=== PATIENT | female | born 1955 | race Caucasian/White ===

== ENCOUNTER 2019-11-14 08:02 | Emergency (ER) | payer OTHER, SELFPAY ==
--- NOTE | 2019-11-14 08:10 | ED.GENADULT ---
HPI - General Adult General Chief complaint: Skin/Abscess/Foreign Body Stated complaint: Rash on hand Time Seen by Provider: 11/14/19 08:17 Source: patient and RN notes reviewed Mode of arrival: ambulatory Limitations: no limitations History of Present Illness HPI narrative: This patient has had a dry scaly rash on the dorsal proximal aspect of the thumb that began 4 weeks ago and now the area has become red and tender to touch. Is not been any drainage from the area. Is been no red streaking on to other areas of the hand or up the arm. She has not had any fever. She otherwise been feeling well except for some discomfort at the upper anterior aspect of her right arm for the past 2 weeks. She has not seen any skin lesions appear anywhere. She has no chest pain or shortness of breath. She has not had any ear pain, no nasal drainage, no sore throat, no cough. She has had no nausea, no vomiting, no diarrhea. She has no history of eczema, psoriasis, MRSA. She has no family members with any rashes. She is used hydrocortisone on the rash without improvement. No exposure to anyone with respiratory infections that she is aware of. She has not been traveling. Related Data Home Medications Medication Instructions Recorded Confirmed pregabalin 75 mg PO HS 11/14/19 11/14/19 Allergies Allergy/AdvReac Type Severity Reaction Status Date / Time No Known Allergies Allergy Unverified 06/26/17 15:48 Review of Systems Review of Systems: Narrative: CONSTITUTIONAL: Denies fever, chills, or sweats. Noncontributory except as pertains to the past medical history and history of present illness. EYES: Denies visual changes, redness, or discharge. ENT: Denies rhinorrhea, congestion, sore throat, or otalgia. CARDIOVASCULAR: Denies chest pain, palpitations, or edema. RESPIRATORY: Denies cough or dyspnea. GASTROINTESTINAL: Denies abdominal pain, nausea, vomiting, or diarrhea. GENITOURINARY: Denies dysuria or hematuria. SKIN: Denies rash or itching. MUSCULOSKELETAL: Denies back pain, joint pain, or myalgia. NEUROLOGIC: Denies headache, numbness, or weakness. PSYCHIATRIC: Denies anxiety or depression. [facility] Family History Family History (Updated 06/10/18 @ 10:17 by DOCTOR UNKNOWN) Other Diabetes mellitus Family history of chronic obstructive pulmonary disease Family history of coronary artery disease Hypertension Social History Social History Smoking status: Former smoker Smoking end date: 10/04/06 Alcohol intake: current Comments At time of signature, I have reviewed and agree with nursing past medical, surgical, social, and family history.Please see nursing chart for further information. There is no relevant family history pertinent to the presenting complaint. Exam Narrative: Exam Narrative: GENERAL: Well-appearing, well-nourished, and in no acute distress. HEAD: Normocephalic, atraumatic. EYES: PERRLA and EOMI. EARS: TM's clear bilaterally and the canals are clear. NOSE: Nares clear, no rhinorrhea or epistaxis. THROAT:Mucous membranes moist.Oropharynx Normal without erythema or exudates. NECK: Supple. No adenopathy of the neck, supraclavicular, axillary, or inguinal areas. RESPIRATORY: No respiratory distress. Airway patent. Respirations non-labored. Clear to auscultation. There are no wheezes, no rales, no retractions, no use accessory muscle respirations. Patient's not cyanotic and not dyspneic. HEART: Regular rate and rhythm. No murmur heard. Normal peripheral pulses. ABDOMEN: Soft, nontender, nondistended, normal active bowel sounds.No masses. No rebound or guarding, No organomegaly. No pulsatile masses or audible bruits. Patient has no CVA pain. No pain McBurney's point. There is a negative Mccartney sign and negative Rovsing sign. There is no palpation tenderness at McBurney's point. EXTREMITIES: No clubbing/cyanosis/ edema. Normal strength & range of motion. Patient has palpation tenderness at the origin o
[2019-11-14 08:14] VITALS: BP 166/87; PULSE 96; RESP 18; TEMP 36.6; O2SAT 99
== END 2019-11-14 08:50 | disposition home or self-care (01) ==
PROVIDERS: Emergency Provider Family Medicine; PCP Family Medicine
DX: L03.011 Cellulitis of right finger (principal); M75.21 Bicipital tendinitis, right shoulder; Z87.891 Personal history of nicotine dependence
CPT/HCPCS: 99213; G0463

== ENCOUNTER 2020-08-19 01:36 | Outpatient (CLI) | payer OTHER, SELFPAY ==
[2020-08-19 21:22] LABS: SARS-CoV-2 RNA PCR Negative
== END 2020-08-19 01:37 | disposition home or self-care (01) ==
LOC: ANHCOVIDDT 01:36
PROVIDERS: PCP Physician Assistant; Visit Provider Internal Medicine Gastroenterology
DX: Z01.818 Encounter for other preprocedural examination (principal); Z20.828 Contact with and (suspected) exposure to other viral communicable diseases
CPT/HCPCS: 87635; C9803; U0003

== ENCOUNTER 2020-08-22 00:17 | Day surgery (SDC) | payer OTHER, SELFPAY ==
[2020-08-15 14:43] VITALS: BMI 23.1
[2020-08-22 09:00] VITALS: BP 181/87; PULSE 95; RESP 18; TEMP 36.4; O2SAT 96; BMI 23.3
--- NOTE | 2020-08-22 09:01 | P.HP_ITS ---
H&P: HPI History of Present Illness Date/Time: 08/22/20 09:01 Chief complaint: Neoplasm screening Narrative: Reason for visit is colonoscopy. This very pleasant lady's is being seen at the request of the primary physician. The patient was examined. Impression: History of colon polyps. Patient is here for screening colonoscopy. She has a family history of colon polyps. Recommendation: Colonoscopy. History: This very pleasant lady's negative GI review systems. She has a family history of colon polyps. She has a personal history of hyperplastic colon polyps. She is here for colonoscopy. Physical examination: General: very pleasant patient in no acute distress. HEENT: Head was normocephalic sclerae is clear mouth without masses neck was supple. Heart: Rate rhythm regular without S3 or S4. Lungs: CTA. Abdomen: Soft with no guarding or rigidity. Bowel sounds were active. Neurologic: Cranial nerves 2 through 12 intact. No focal defects. No clonus. Musculoskeletal system: Revealed no joint tenderness or swelling no muscle atrophy. Extremities: Reveal no significant edema. Skin: Warm and dry with normal turgor. Mental status: intact. Patient is alert and oriented. Review of Systems Review of Systems: All systems reviewed & are unremarkable except as noted in HPI and below PMFSH Past Medical History Medical History (Updated 08/22/20 @ 09:01 by John Bassett DO) Acute bacterial conjunctivitis Elevated blood pressure reading without diagnosis of hypertension Multilevel degenerative disc disease Scoliosis of cervical spine Shingles Surgical History Surgical History (Updated 08/22/20 @ 09:01 by John Bassett DO) H/O colonoscopy [place] teeth extracted Family History Family History Other Diabetes mellitus Family history of chronic obstructive pulmonary disease Family history of coronary artery disease Hypertension Social History Social History Smoking status: Former smoker Second hand tobacco smoke exposure: No Smoking end date: 10/04/06 Alcohol intake: current Drinks per week: 2 Alcohol use details: 1-2 glasses of wine per week Substance use: never Substance use type: does not use Living arrangements: with family Gender identity (if verbalized by the patient): Female Spiritual care concerns: No Meds Home Medications and Allergies Home Medications Medication Instructions Recorded Confirmed Type lisinopril 10 mg tablet 10 mg PO DAILY #90 tablet 07/11/20 08/22/20 Rx pregabalin 75 mg capsule 75 mg PO BID #180 cap 07/15/20 08/22/20 Rx Allergies Allergy/AdvReac Type Severity Reaction Status Date / Time No Known Allergies Allergy Verified 08/22/20 09:00
[2020-08-22] MEDS: LACTATED RINGERS 1,000 ML 150 ML IV CONT (09:18)
--- NOTE | 2020-08-22 09:25 | P.PNAN_ITS ---
Anes - Initial Pre Proc Eval Procedure: Operation Date: 08/22/20 10:00 Proposed Procedures p Screening Colonoscopy - John Bassett DO Date/Time: 08/22/20 09:25 Surgeon: John Bassett DO Pre Op Diagnosis: Neoplasm screening Patient Data Age: 65 Gender: F Height: 5 ft 4 in Weight: 61.8 kg Last Vital Signs Temp 97.5 F L 08/22/20 09:00 Pulse 95 08/22/20 09:00 Resp 18 08/22/20 09:00 BP 181/87 H 08/22/20 09:00 Pulse Ox 96 08/22/20 09:00 Allergies Allergy/AdvReac Type Severity Reaction Status Date / Time No Known Allergies Allergy Verified 08/22/20 09:00 Home Medications Medication Instructions Recorded Confirmed Type lisinopril 10 mg tablet 10 mg PO DAILY #90 tablet 07/11/20 08/22/20 Rx pregabalin 75 mg capsule 75 mg PO BID #180 cap 07/15/20 08/22/20 Rx Patient hx anesthesia problems: none Family hx anesthesia problems: none PMFSH Past Medical History Medical History (Updated 08/22/20 @ 09:01 by John Bassett DO) Acute bacterial conjunctivitis Elevated blood pressure reading without diagnosis of hypertension Multilevel degenerative disc disease Scoliosis of cervical spine Shingles Surgical History Surgical History (Updated 08/22/20 @ 09:01 by John Bassett DO) H/O colonoscopy [place] teeth extracted Family History Family History Other Diabetes mellitus Family history of chronic obstructive pulmonary disease Family history of coronary artery disease Hypertension Social History Social History Smoking status: Former smoker Second hand tobacco smoke exposure: No Smoking end date: 10/04/06 Alcohol intake: current Drinks per week: 2 Alcohol use details: 1-2 glasses of wine per week Substance use: never Substance use type: does not use Living arrangements: with family Gender identity (if verbalized by the patient): Female Spiritual care concerns: No Anes - Eval Final PreProcedure Day of Procedure 08/22/20 09:25 Patient weight: normal Heart: regular rate and rhythm Lungs: clear to auscultation Airway: Mallampati scale Neurological: alert and oriented Last oral intake: >/= 8 hours ASA classification: II Emergent: no Anesthetic plan: proceed Anesthesia type and monitoring: general GIVS and standard monitoring Informed Consent: The patient's anesthetic plan and its attendant risks and benefits were discussed with the patient/family/POA. Questions were solicited and answers provided to the satisfaction of the patient/family/POA.
[2020-08-22 10:12] VITALS: BP 130/74; PULSE 91; RESP 19; O2SAT 100
[2020-08-22 10:22] VITALS: BP 133/82; PULSE 79; RESP 14; O2SAT 100
[2020-08-22 10:32] VITALS: BP 139/74; PULSE 70; RESP 15; O2SAT 100
[2020-08-22 10:42] VITALS: BP 153/87; PULSE 73; RESP 19; O2SAT 100
== END 2020-08-22 10:58 | disposition home or self-care (01) ==
PROVIDERS: PCP Physician Assistant; Visit Provider Internal Medicine Gastroenterology
PROC: 0DJD8ZZ Inspection of Lower Intestinal Tract, Via Natural or Artificial Opening Endoscopic (ICD-10-PCS; CPT 45378; principal; 2020-08-22 10:00)
DX: Z12.11 Encounter for screening for malignant neoplasm of colon (principal); K57.30 Diverticulosis of large intestine without perforation or abscess without bleeding; K62.1 Rectal polyp; Z87.891 Personal history of nicotine dependence
CPT/HCPCS: 45380; 88305; J2704; J7120

== ENCOUNTER 2021-10-08 07:47 | Outpatient (CLI) | payer MEDICARE, SELFPAY ==
--- NOTE | 2021-10-20 17:53 | WPDSLEEPSTUD ---
Sleep Study Date of Study: 10/08/21 <Deysi James, DO - Last Filed: 10/21/21 13:51> Ordering Provider: Sita Syed MD <Deysi James DO - Last Filed: 10/21/21 13:51> Interpreting Physician: Deysi James DO <Deysi James DO - Last Filed: 10/21/21 13:51> Sleep Study Type: Polysomnogram <Deysi James DO - Last Filed: 10/21/21 13:51> Height: 1.63 m <Deysi James DO - Last Filed: 10/21/21 13:51> Weight: 61.235 kg <Deysi James DO - Last Filed: 10/21/21 13:51> Body Mass Index: 23.1 <Deysi James DO - Last Filed: 10/21/21 13:51> Neck Circumference (inches): 14 <Deysi James DO - Last Filed: 10/21/21 13:51> Joshua: 13 <Deysi James DO - Last Filed: 10/21/21 13:51> Reason for Sleep Study Daytime hypersomnia <Deysi James, DO - Last Filed: 10/21/21 13:51> Sleep History The patient is a 66-year-old female with hypertension, anxiety, multilevel degenerative disc disease, scoliosis of cervical spine and seasonal allergies that had a sleep study ordered by her primary care physician due to daytime hypersomnia. The patient is currently retired. She occasionally awakens from sleep short of breath. She frequently awakens at night with heartburn, belching or cough. She frequently snores loud enough others complain. She constantly has trouble sleeping when she has a cold. She occasionally wakes up gasping for air throughout the night. She occasionally has breathing problems at night observed by others. She rarely sweats excessively at night. She rarely notices heart palpitations or irregular heartbeats during the night. She occasionally falls asleep during the day but never while driving. She denies sleep paralysis and cataplexy. She occasionally experiences vivid dream like scenes upon awakening or falling asleep is. She rarely has nightmares. She occasionally has thoughts racing through her mind. She rarely feels sad or depressed. She occasionally has anxiety. She rarely notices parts of her body jerk. She rarely kicks during the night. She rarely has crawling aching feelings in her legs as well as leg pain during the night. She frequently grinds her teeth during sleep and frequently awakens with morning jaw pain. She is frequently bothered by pain during the day but rarely awakened by pain during the night. She frequently wakes up feeling stiff in the morning. She occasionally wakes up with a sore and achy muscles. She frequently wakes up with pain in the neck, spine or other joints. She goes to bed at 9:00 p.m. on both weekdays and weekends. It takes her 1 hour to fall asleep. She wakes up 2-3 times throughout the night. When she wakens, she will lay in bed quietly or pray. She can take up to 30 minutes to fall asleep. She wakes up between 5 and 6:00 a.m. on both weekdays and weekends. She typically gets between 5 and 7 hours of sleep per night. She will lay in bed for 5 minutes after waking up in the morning. She currently lives with her partner. She denies consuming any caffeinated beverages within 2 hours of bedtime. She does not engage in physical exercise before bedtime. She will watch television before falling asleep. She will take naps during the afternoon or the evening but they are not refreshing. She consumes 4 caffeinated beverages per day. She has 1 alcoholic beverage per day. She quit smoking cigarettes 14 years ago. She denies recreational drug use. <Deysi James DO - Last Filed: 10/21/21 13:51> [facility] Past Medical History Medical History: Medical History Acute bacterial conjunctivitis Anxiety Elevated blood pressure reading without diagnosis of hypertension Multilevel degenerative disc disease Scoliosis of cervical spine Shingles <Deysi James DO - Last Filed: 10/21/21 13:51> Surgi
[2021-10-21 13:40] VITALS: BMI 23.1
== END 2021-10-09 10:49 | disposition home or self-care (01) ==
LOC: ANHCSM 07:48
PROVIDERS: PCP Family Medicine; Visit Provider Family Medicine
DX: G47.30 Sleep apnea, unspecified (principal); G47.419 Narcolepsy without cataplexy; G47.10 Hypersomnia, unspecified; G47.61 Periodic limb movement disorder
CPT/HCPCS: 95810

== ENCOUNTER → 2022-03-20 10:54 | Outpatient (CLI) | payer MEDICARE, SELFPAY ==
--- NOTE | ~2022-03-20 | MM_ITS ---
EXAMINATION: MM screening [facility] BI w lea HISTORY: Screening TECHNIQUE: Craniocaudal and mediolateral oblique 3-D tomosynthesis images were obtained and synthetic 2-D images were generated. CAD analysis was submitted and interpreted. COMPARISON: Comparison to multiple prior studies sequentially, with oldest reviewed study dated 12/15. BREAST PARENCHYMAL COMPOSITION: Breast composed of scattered areas of fibroglandular density FINDINGS: There is no evidence of suspicious mass, calcification, or architectural distortion to sugg est malignancy in either breast. There has been no suspicious interval change. IMPRESSION: 1. No mammographic evidence of malignancy. 2. Recommend routine screening mammography in one year. BI-RADS Category 1: Negative Reviewed, dictated and finalized at location A.
--- NOTE | ~2022-03-20 | DEXA_ITS ---
Bone Density Report Name: GOLDY HOLDEN Age: 66 Sex: Female Ethnicity: White Date of : 1955 Indication: osteopenia; postmenopausal Referring Provider: Sarah Beth Harman Study: Bone densitometry was performed. Exam Date: March 20, 2022 Accession number: [id number] Bone Density: Region BMD T-score Z-score Classification AP Spine (L1-L4) 0.840 -1.9 -0.1 Osteopenia Femoral Neck (Left) 0.649 -1.8 -0.3 Osteopenia Total Hip (Left) 0.747 -1.6 -0.3 Osteopenia Femoral Neck (Right) 0.694 -1.4 0.1 Osteopenia Total Hip (Right) 0.766 -1.4 -0.2 Osteopenia Total Hip Mean 0.757 -1.5 -0.3 Osteopenia World Health Organization criteria for BMD impression classify patients as: Normal (T-score at or above -1.0), Osteopenia (T-score between -1.0 and -2.5), or Osteoporosis (T-score at or below -2.5). 10-year Fracture Risk(1): Major Osteoporotic Fracture 9.9% Hip Fracture 1.3% Reported Risk Factors: [place] (), Neck BMD=0.649, BMI=25.3 (1) FRAX(R) Version 3.08. Fracture probability calculated for an untreated patient. Fracture probability may be lower if the patient has received treatment. Previous Exams: Region Exam Age BMD T-score BMD Change BMD Change Date g/cm2 vs Baseline vs Previous AP Spine(L1-L4) 03/20/2022 66 0.840 -1.9 -0.169* -0.026* 04/22/2018 62 0.866 -1.6 -0.142* -0.142* 11/05/2008 53 1.008 -0.4 Total Hip(Left) 03/20/2022 66 0.747 -1.6 -0.217* -0.041* 04/22/2018 62 0.788 -1.3 -0.176* -0.176* 11/05/2008 53 0.964 0.2 Total Hip(Right) 03/20/2022 66 0.766 -1.4 -0.192* -0.041* 04/22/2018 62 0.807 -1.1 -0.151* -0.151* 11/05/2008 53 0.958 0.1 *Denotes significance at 95% confidence level, LSC for AP Spine = 0.022 g/cm2, LSC for Total Hip = 0.027 g/cm2 Impression: The patient has low bone mass, based on the Total Spine T-score. The patient has an estimated ten-year risk of hip fracture of 1.3% and an estimated ten-year risk of major fracture of 9.9%, based on the WHO FRAX algorithm. The BMD for the AP Spine(L1-L4) decreased, changing by -0.026 since the last DXA exam. The BMD for the Total Hip(Left) decreased, changing by -0.041 since the last DXA exam. The BMD for the Total Hip(Right) decreased, changing by -0.041 since the last DXA exam. Discussion: BONE DENSITY IS LOW AT ONE OR MORE SKELETAL SITES. This patient's lowest T-score is low at one or more skeletal sites. It meets the World Health Organization's (WHO) criteria for ?low
== END ==
PROVIDERS: PCP Family Medicine; Visit Provider Family Medicine
DX: Z12.31 Encounter for screening mammogram for malignant neoplasm of breast (principal); Z78.0 Asymptomatic menopausal state; M85.89 Other specified disorders of bone density and structure, multiple sites
CPT/HCPCS: 77063; 77067; 77080

== ENCOUNTER 2022-06-04 09:58 | Outpatient (CLI) | payer MEDICARE, SELFPAY ==
--- NOTE | ~2022-06-04 | MR_ITS ---
EXAMINATION: MR brain/brain stem wo/w con DATE: 06/04/2022 10:42 INDICATION: Memory loss. TECHNIQUE: Magnetic resonance imaging (MRI) of the brain and brainstem was performed without and with 12 mL MultiHance intravenous contrast. COMPARISON: None. FINDINGS: There is no intracranial hemorrhage, acute infarction, or abnormal intracranial mass lesion . There are scattered areas of nonspecific increased T2-weighted signal intensity in the cerebral whi te matter, which is within normal limits for the patient's age. The ventricles are normal in size. Th ere is mild mucosal thickening in the ethmoid sinuses. The orbits are normal. The mastoid air cells a re normal. IMPRESSION: 1. Normal aging brain. Reviewed, dictated and finalized at location A. IMPRESSION: 1. Normal aging brain.
== END 2022-06-04 09:59 | disposition home or self-care (01) ==
PROVIDERS: PCP Family Medicine; Visit Provider Family Medicine
DX: R41.3 Other amnesia (principal); R47.89 Other speech disturbances
CPT/HCPCS: 70553; A9577

== ENCOUNTER → 2022-09-23 13:59 | Outpatient (CLI) | payer MEDICARE, SELFPAY ==
--- NOTE | ~2022-09-23 | XR_ITS ---
XR sacrum coccyx min 2V DATE: 09/23/2022 14:27 INDICATION: Sciatica TECHNIQUE: AP, angled AP and lateral views COMPARISON: None FINDINGS: There is osteopenia. No fracture or bone destruction of the sacrum or coccyx is evident. Th e sacroiliac joints appear normal. IMPRESSION: Osteopenia Reviewed, dictated and finalized at location B. INE WEDGER IMPRESSION: Osteopenia
--- NOTE | ~2022-09-23 | XR_ITS ---
XR lumbar spine min 4V DATE: 09/23/2022 14:27 INDICATION: Sciatica TECHNIQUE: AP, lateral, bilateral oblique views, coned lateral lumbosacral view COMPARISON: 04/22/2014 2 view chest FINDINGS: There is diffuse osteopenia. Mildly prominent loss of height and anterior wedging of T12 due to compression fracture, likely chron ic, but new since 04/22/2014 chest radiograph. Mild levoscoliosis of the lower thoracic and lumbar spine. No evidence of recent fracture of the lumbar spine. Normal alignment of the lumbar spine without spon dylolysis or spondylolisthesis. The included lower thoracic and lumbar pedicles are intact. Lumbar and lumbosacral interspaces are relatively well preserved. There is mild degenerative spurring of the lumbar spine. The sacroiliac joints are intact. There is a prominent amount of fecal material in the rectum and colon. IMPRESSION: Osteopenia Mild levoscoliosis Likely chronic moderate compression fracture deformity of T12 Mild degenerative change of the lumbar spine Reviewed, dictated and finalized at location B. [employer]
== END ==
PROVIDERS: PCP Family Medicine; Visit Provider Physician Assistant Medical
DX: M54.30 Sciatica, unspecified side (principal); M85.88 Other specified disorders of bone density and structure, other site
CPT/HCPCS: 72110; 72220

== ENCOUNTER → 2023-01-11 09:43 | Outpatient (CLI) | payer MEDICARE, SELFPAY ==
--- NOTE | ~2023-01-11 | MR_ITS ---
MRI of the lumbar spine Clinical History: Pain Technique: Axial T2-weighted images, and sagittal T1-weighted, T2-weighted, and and T2 fat-sat images were acquired. Findings: There is no acute fracture or subluxation of the lumbar spine. Chronic moderate compression fracture of T12 noted. No bone marrow signal abnormality seen otherwise. At L1-L2, there is no disc bulge or herniation. There is minimal facet joint hypertrophy. No spinal c anal stenosis or neural foraminal narrowing. At L2-L3, there is disc bulge, most prominent in the left paracentral to left foraminal region, with mild facet arthropathy. There is left lateral recess stenosis. There is moderate left neural foramina l narrowing. Minimal right neural foraminal narrowing noted. At L3-L4, disc bulge and facet arthropathy result in severe thecal sac compression/spinal canal steno sis. There is moderate bilateral neural foraminal narrowing. At L4-L5, there is central disc protrusion superimposed upon diffuse disc bulge. There is mild facet arthropathy. There is minimal effacement of the ventral thecal sac. There is severe bilateral neural foraminal narrowing. At L5-S1, there is no disc bulge or herniation. No spinal canal stenosis or neural foraminal narrowin g. Paravertebral soft tissues are unremarkable. Impression: Multifactorial severe thecal sac compression/spinal canal stenosis at L3-L4, with moderate bilateral neural foraminal narrowing. Additional moderate degenerative spondylitic changes at L2-L3 and L4-L5, as detailed above. Chronic T12 compression fracture deformity. Reviewed, dictated and finalized at [facility]. Impression: Multifactorial severe thecal sac compression/spinal canal stenosis at L3-L4, wi th moderate bilateral neural foraminal narrowing. Additional moderate degenerative spondylitic changes at L2-L3 and L4-L5, as det vandana above. Chronic T12 compression fracture deformity.
== END ==
PROVIDERS: PCP Family Medicine; Visit Provider Physician Assistant Medical
DX: M54.30 Sciatica, unspecified side (principal); M48.061 Spinal stenosis, lumbar region without neurogenic claudication; M47.816 Spondylosis without myelopathy or radiculopathy, lumbar region; M48.54XA Collapsed vertebra, not elsewhere classified, thoracic region, initial encounter for fracture
CPT/HCPCS: 72148

== ENCOUNTER → 2023-05-17 10:27 | Outpatient (CLI) | payer MEDICARE, SELFPAY ==
--- NOTE | ~2023-05-17 | MM_ITS ---
EXAMINATION: MM screening [facility] BI w lea HISTORY: Screening TECHNIQUE: Craniocaudal and mediolateral oblique 3-D tomosynthesis images were obtained and synthetic 2-D images were generated. CAD analysis was submitted and interpreted. COMPARISON: Comparison to multiple prior studies sequentially, with oldest reviewed study dated 01/17. BREAST PARENCHYMAL COMPOSITION: There are scattered areas of fibroglandular density. FINDINGS: There is no evidence of suspicious mass, calcification, or architectural distortion to sugg est malignancy in either breast. There has been no suspicious interval change. IMPRESSION: 1. No mammographic evidence of malignancy. 2. Recommend routine screening mammography in one year. BI-RADS Category 1: Negative Reviewed, dictated and finalized at location A.
== END ==
PROVIDERS: PCP Physician Assistant Medical; Visit Provider Physician Assistant Medical
DX: Z12.31 Encounter for screening mammogram for malignant neoplasm of breast (principal)
CPT/HCPCS: 77063; 77067

== ENCOUNTER 2024-05-04 08:29 | Outpatient (CLI) | payer MEDICARE, SELFPAY ==
--- NOTE | ~2024-05-04 | CT_ITS ---
CT thoracic spine wo con Ordering provider: Ruth Zhong MD History: . Thoracic back pain . Comparison: None. Technique: CT thoracic spine without contrast. Automated exposure control and iterative reconstructi on technique were employed. The dose-length product was 407.07 mGy-cm. FINDINGS: VERTEBRAE: Loss of volume of T12 anteriorly is noted which raises most likely chronic. Otherwise, No rmal height and alignment. No subluxation or visible acute fracture. Degenerative changes of the spin e. Schmorl's node is seen in the superior endplate of T12 and inferior endplate of T11. Otherwise DISC SPACES: Narrowing of the disks at multiple levels PARASPINOUS SOFT TISSUES: Normal. IMPRESSION: No acute osseous abnormality of the thoracic spine. Reviewed, dictated and finalized at location A.
--- NOTE | ~2024-05-04 | MR_ITS ---
MRI of the lumbar spine Clinical History: Radiculopathy Technique: Axial T2-weighted images, and sagittal T1-weighted, T2-weighted, and T2 fat-sat images wer e acquired. COMPARISON: 01/11/2023 Findings: No acute fracture or subluxation seen. Stable chronic compression deformity of T12. No susp icious bone marrow signal abnormality seen. At L1-L2, there is no disc bulge or herniation. There is mild to moderate facet arthropathy. No centr al canal stenosis or neural foraminal narrowing. At L2-L3, there is moderate degenerative disc narrowing. There is diffuse disc bulge and moderate fac et arthropathy. No delores central canal stenosis. There is moderate to advanced left neural foraminal narrowing, and mild to moderate right neural foraminal narrowing. L3-L4, there is diffuse disc bulge and severe facet arthropathy, resulting in severe spinal canal rosita nosis/thecal sac compression. There is moderate to severe right neural foraminal narrowing, and sever e left neural foraminal narrowing. At L4-L5, there is diffuse disc bulge with small annular fissure, and moderate facet arthropathy. No delores central canal stenosis. There is severe bilateral neural foraminal conference. At L5-S1, there is minimal disc bulge with mild to moderate facet arthropathy. No central canal steno sis. There is no definite neural foraminal narrowing. Paravertebral soft tissues are unremarkable. Impression: Advanced degenerative spondylosis at L2-L3, L3-L4 and L4-L5. Additional degenerative changes, as above. Reviewed, dictated and finalized at [facility]. Impression: Advanced degenerative spondylosis at L2-L3, L3-L4 and L4-L5. Additional degenerative changes, as above.
== END 2024-05-04 08:30 ==
PROVIDERS: PCP Family Medicine; Visit Provider Physical Medicine & Rehabilitation Pain Medicine
DX: M47.896 Other spondylosis, lumbar region (principal); M51.36 Other intervertebral disc degeneration, lumbar region
CPT/HCPCS: 72128; 72148

== ENCOUNTER 2024-06-06 09:37 | Outpatient (CLI) | payer MEDICARE, SELFPAY ==
--- NOTE | ~2024-06-06 | XR_ITS ---
Cervical Spine: AP, lateral, open-mouth views Clinical History: Pain Findings: There is straightening of the normal cervical lordosis. There is severe degenerative disc d isease throughout the cervical spine, sparing the C2-C3 level. There is moderate to advanced facet ar thropathy throughout the cervical spine. Pre-vertebral soft tissues are unremarkable. Impression: Advanced degenerative spondylosis, as above. Reviewed, dictated and finalized at location M. Impression: Advanced degenerative spondylosis, as above.
== END 2024-06-06 09:38 | disposition home or self-care (01) ==
PROVIDERS: PCP Family Medicine; Visit Provider Physical Medicine & Rehabilitation Pain Medicine
DX: M47.892 Other spondylosis, cervical region (principal)
CPT/HCPCS: 72040

== ENCOUNTER 2024-08-09 07:46 | Outpatient (CLI) | payer MEDICARE, SELFPAY ==
--- NOTE | ~2024-08-09 | MR_ITS ---
MRI of the cervical spine Clinical History: Radiculopathy Technique: Axial T2-weighted and gradient images, and sagittal T1-weighted, T2-weighted, and STIR uche ges were acquired. Findings: There is straightening of normal cervical lordosis. No fracture or subluxation. No suspicio us bone marrow signal abnormality seen. At C2-C3, there is no disc bulge or herniation. No spinal canal stenosis, cord compression, or neural foraminal narrowing. At C3-C4, there is advanced degenerative disc narrowing. There is mild disc osteophyte complex. There is mild canal stenosis without delores cord compression. There is bilateral neural foraminal narrowing , right worse than left. At C4-C5, there is severe degenerative disc narrowing. There is disc osteophyte complex with canal st enosis and mild compression of the ventral cord. There is severe left neural foraminal narrowing. Rig ht neural foramen mildly narrowed. At C5-C6, there is advanced degenerative disc narrowing. There is mild disc osteophyte complex. There is mild canal stenosis without delores cord compression. There is severe right neural foraminal narrow ing. Left neural foramen preserved. At C6-C7, there is advanced degenerative disc narrowing. There is minimal disc bulge. There is mild c anal stenosis without delores cord compression. There is mild right neural foraminal narrowing. Left ne ural foramen may be minimally narrowed as well. No abnormal signal seen in the spinal cord. Paravertebral soft tissues are unremarkable. Impression: Moderate to advanced degenerative spondylosis, as detailed above, probably worst at C4-C5. Reviewed, dictated and finalized at [facility]. [employer] BIOCHEMISTRY Impression: Moderate to advanced degenerative spondylosis, as detailed above, probably wors t at C4-C5.
== END 2024-08-09 07:47 | disposition home or self-care (01) ==
LOC: MICIMG 07:47
PROVIDERS: PCP Family Medicine; Visit Provider Physical Medicine & Rehabilitation Pain Medicine
DX: M47.892 Other spondylosis, cervical region (principal)
CPT/HCPCS: 72141

== ENCOUNTER 2024-09-29 11:24 | Outpatient (CLI) | payer MEDICARE, SELFPAY ==
--- NOTE | ~2024-09-29 | MM_ITS ---
EXAMINATION: MM screening [facility] BI [facility] HISTORY: Screening TECHNIQUE: Craniocaudal and mediolateral oblique 3-D tomosynthesis images were obtained and synthetic 2-D images were generated. CAD analysis was submitted and interpreted. COMPARISON: 05/17/2023 and dating back to 07/15/2019 BREAST PARENCHYMAL COMPOSITION: There are scattered areas of fibroglandular density. FINDINGS: Punctate calcifications detected bilaterally, stable and benign in appearance, vascular in origin. Stable parenchymal pattern without suspicious microcalcifications, architectural distortion, discrete masses or significant asymmetry. IMPRESSION: 1. No mammographic evidence of malignancy. 2. Recommend routine screening mammography in one year. BI-RADS Category 2: Benign finding(s). Reviewed, dictated and finalized at location A. LE OILER
== END 2024-09-29 11:25 | disposition home or self-care (01) ==
LOC: MICIMG 11:25
PROVIDERS: PCP Family Medicine; Visit Provider Physician Assistant Medical
DX: Z12.31 Encounter for screening mammogram for malignant neoplasm of breast (principal)
CPT/HCPCS: 77063; 77067

== ENCOUNTER 2024-12-04 11:01 | Outpatient (CLI) | payer MEDICARE, SELFPAY | END 2024-12-04 11:02 | disposition home or self-care (01) | PROVIDERS: PCP Family Medicine; Visit Provider Physical Medicine & Rehabilitation Pain Medicine | DX: M75.31 Calcific tendinitis of right shoulder (principal); M19.011 Primary osteoarthritis, right shoulder; S43.431A Superior glenoid labrum lesion of right shoulder, initial encounter; S46.111A Strain of muscle, fascia and tendon of long head of biceps, right arm, initial encounter; X58.XXXA Exposure to other specified factors, initial encounter | CPT/HCPCS: 73221 ==

== ENCOUNTER 2024-12-19 13:02 | Outpatient (CLI) | payer MEDICARE, SELFPAY ==
--- NOTE | ~2024-12-19 | XR_ITS ---
AP and lateral views of the pelvis Clinical history osteomyelitis FINDINGS: There are minimal degenerative changes of the sacroiliac joints. No erosive or inflammatory arthropathy evident. Bilateral hip joints are intact. Soft tissues are unremarkable. 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 Reviewed, dictated and finalized at location .
== END 2024-12-19 13:03 | disposition home or self-care (01) ==
LOC: MICIMG 13:03
PROVIDERS: PCP Family Medicine; Visit Provider Physical Medicine & Rehabilitation Pain Medicine
DX: M46.1 Sacroiliitis, not elsewhere classified (principal)
CPT/HCPCS: 72190

== ENCOUNTER 2025-04-10 08:47 | Outpatient (CLI) | payer MEDICARE, SELFPAY ==
--- NOTE | ~2025-04-10 | CT_ITS ---
Noncontrast CT scan of the right shoulder Clinical history preoperative planning TECHNIQUE: Axial noncontrast imaging of the right shoulder was performed. Sagittal and coronal reform atted images were generated. Dose reduction technique was used on this scan by utilizing automated ex posure control and iterative reconstruction technique. The dose-length product (DLP) was 170.52 mGy-c m. Findings: No acute fracture or dislocation seen. There is moderate AC joint degenerative change. Ther e is minimal glenohumeral joint degenerative change. No definite joint effusion identified. Visualized musculature is unremarkable. No gross soft tissue reality seen. No soft tissue mass or flu id collection seen. Visualized right lung is clear. IMPRESSION: Moderate AC joint degenerative change. Minimal glenohumeral joint degenerative change. Reviewed, dictated and finalized at location .
--- OUTSIDE RECORDS SUMMARY | 2025-04-10 08:56 | XMS_ITS | Clinical Summary ---
Author Organization [facility] Address [address] [place] [address] Care Team Providers Care Quarantine Officer Name Role Phone Sita Syed MD Primary Care Provider [phone] Allergies Active Allergy Reactions Criticality Noted Date Comments Prednisone Other (See comments) Low 07/03/2024 Hypertension, bloody nose Medications amLODIPine (NORVASC) 5 mg tablet Take 1 tablet (5 mg total) by mouth daily 30 tablet 07/04/2024 Active Social History Tobacco Use Types Packs/Day Years Used Date Smoking Tobacco: Never Assessed Personal Safety Answer Date Recorded Have you ever been in or are you currently in a harmful physical or emotional relationship or is someone making you feel afraid or unsafe? 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 Gender Identity Not on file Sexual Orientation Not on file Obstetrics History Last Filed Vital Signs Vital Sign Reading Time Taken Comments Blood Pressure 165/85 07/03/2024 3:55 PM CDT Pulse 82 07/03/2024 3:03 PM CDT Temperature 36.3 C (97.4 F) 07/03/2024 9:55 AM CDT Respiratory Rate 13 07/03/2024 3:03 PM CDT Oxygen Saturation 98% 07/03/2024 3:03 PM CDT Inhaled Oxygen Concentration - - Weight 61.7 kg (136 lb) 07/03/2024 9:57 AM CDT Height 162.6 cm (5' 4) 07/03/2024 9:57 AM CDT Body Mass Index 23.34 07/03/2024 9:57 AM CDT Plan of Treatment Health Maintenance Due Date Last Done Comments Breast Cancer Screening-Mammogram 1955 Colon Cancer Screening-Colonoscopy 1955 Depression Screening 1955 Fall Risk Assessment 1955 Hepatitis C Screening 1955 Osteoporosis Screening-Bone Density Scan 1955 Hepatitis B Screening 1974 DTaP/Tdap/Td Vaccine (2 - Td or Tdap) 12/13/2017 12/14/2007 Well Visit 65+ 2021 Covid-19 Vaccine (2023-11 5 season) 2024 07/22/2023, 08/05/2022, 04/10/2022, Additional history exists Influenza Vaccine (Season Ended) 2025 07/27/2023, 08/05/2022, 07/29/2020, Additional history exists Zoster Vaccine Completed 11/12/2020, 08/16/2020 Pneumococcal vaccine 65+ Completed 03/08/2022, 1206/2021 Insurance [employer] OPEN ACCESS [employer] MEDICARE [employer] OPEN ACCESS Care Teams Quarantine Officer Relationship Specialty Start Date End Date Sita Syed MD PCP - General 06/19/21
--- OUTSIDE RECORDS SUMMARY | 2025-04-10 08:56 | XMS_ITS | Referral Summary ---
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
--- OUTSIDE RECORDS SUMMARY | 2025-04-10 08:56 | XMS_ITS | Clinical Summary ---
Author Organization [facility] Address [address] [address] Phone Care Team Providers Care Seed Potato Arranger Name Role Phone Sita Syed MD Primary Care Provider [phone] Allergies Active Allergy Reactions Criticality Noted Date Comments Prednisone Other (see Comments) 03/23/2023 Causes increase in BP Medications naproxen sodium (Aleve) 220 MG Tablet Take 220 mg by mouth 2 times daily as needed. Active albuterol 108 (90 Base) MCG/ACT Aerosol Solution take 2 Puffs by inhalation every 4 hours as needed. Active pregabalin (LYRICA) 75 MG Capsule Take 75 mg by mouth 3 times daily. Active busPIRone (BUSPAR) 10 MG Tablet Take 10 mg by mouth 3 times daily as needed. Active Calcium Carb-Cholecalci ferol 600-20 MG-MCG Tablet Take 1 Tablet by mouth daily. Active other by Other route. EYE PROMISE 1 TAB DAILY Active cetirizine (ZyrTEC) 10 MG Tablet Take 10 mg by mouth daily. Active montelukast (SINGULAIR) 10 MG Tablet Take 10 mg by mouth every evening. Active lisinopril (PRINIVIL, ZESTRIL) 20 MG Tablet Take 20 mg by mouth daily. Active Family History Medical History Relation Name Comments Heart Attack Father Hypertension Father Chronic Obstructive Pulmonary Disease Mother Diabetes Mother Hypertension Mother Relation Name Status Comments Father Mother Social History Tobacco Use Types Packs/Day Years Used Date Smoking Tobacco: Former Cigarettes 1 30 1 977 - 2006 Smokeless Tobacco: Never Alcohol Use Standard Drinks/Week Comments Yes 4 (1 standard drink = 0.6 oz pur e alcohol) Sexually Active Control Partners Comments Yes Post-menopausal Male Comments Unknown Sex and Gender Information Value Date Recorded Sex Assigned at Not on file Legal Sex Female 8:47 AM CDT Gender Identity Not on file Sexual Orientation Not on file Last Filed Vital Signs Vital Sign Reading Time Taken Comments Blood Pressure 137/81 03/29/2023 8:57 AM CDT Pulse 85 03/29/2023 8:57 AM CDT Temperature 36.3 C (97.3 F) 03/29/2023 8:57 AM CDT Respiratory Rate 14 03/29/2023 8:57 AM CDT Oxygen Saturation 97% 03/29/2023 8:57 AM CDT Inhaled Oxygen Concentration - - Weight 61.2 kg (135 lb) 03/23/2023 3:00 PM CDT Height 162.6 cm (5' 4) 03/23/2023 3:00 PM CDT Body Mass Index 23.17 03/23/2023 3:00 PM CDT Plan of Treatment Health Maintenance Due Date Last Done Comments DEXA Bone Density 1955 Hepatitis C Virus (HCV) Screening 1955 Mammogram 1955 Cologuard 2006 Immunochemical Fecal Occult Blood 2006 Influenza Immunization (#1) 06/04/202411/2021, 07/29/2020, 07/31/2018, Additional history exists SARS-COV-2 Immunization ( season) 2024 08/05/2022, 04/10/2022, 08/15/2021, Additional history exists Colonoscopy 08/22/2027 08/22/2020 Colorectal Cancer Screening 08/22/2027 Respiratory Syncytial Virus (RSV) Immunization (Adult) (1 - 1-dose 75+ series) 2031 DTaP/Tdap/Td Immunization Discontinued 12/14/2007 TdaP Immunization Completed 12/14/2007 Zoster Immunization Completed 11/12/2020, 0 Pneumococcal Immunization (50+ years) Completed 03/08/2022, 09/11/2021 Pneumococcal Immunization Combined Discontinued 03/08/2022, 09/11/2021 Hepatitis B Immunization Aged Out No longer eligible based on patient's age to complete this topic Meningococcal Immunization (ACWY) Aged Out No longer eligible based on patient's age to complete this topic Rotavirus Immunization Aged Out No lo nger eligible based on patient's age to complete this topic Medical Devices Implanted Type Area Placement Specialist Device Identifier Shelf Expiration Date Model / Serial / Lot Right Intraocular Lens Implanted:Qty: 1 on 03/29/2023 by Gurmeet Sanchez MD at [facility] Right: Eye [employer] 08/10/2027 [id number] / [id number] Procedures Procedure Name Priority Date/Time Associated Diagnosis Comments COLONOSCOPY Routine 08/22/2020 from Last 3 Months or Most Recently Relevant to Health Maintenance Results * COLONOSCOPY (08/22/2020) John Bassett DO PROCEDURE/MINOR SURGICAL ORDERA BLES Final Result from Last 3 Months or Most Recently Relevant to Health Maintenance Insurance MEDICARE C AETNA Care Teams Seed Potato Arranger Relationship Specialty Start Date End Date Sita Syed MD [address] [place] [address] PCP - General Family Medicine 03/29/23
== END 2025-04-10 08:48 | disposition home or self-care (01) ==
PROVIDERS: PCP Family Medicine; Visit Provider Orthopaedic Surgery
DX: Z01.818 Encounter for other preprocedural examination (principal); M75.101 Unspecified rotator cuff tear or rupture of right shoulder, not specified as traumatic; M12.811 Other specific arthropathies, not elsewhere classified, right shoulder
CPT/HCPCS: 73200

== ENCOUNTER 2025-04-30 13:12 | Outpatient (CLI) | payer MEDICARE, SELFPAY ==
--- OUTSIDE RECORDS SUMMARY | 2025-04-30 13:15 | XMS_ITS | Clinical Summary ---
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
--- OUTSIDE RECORDS SUMMARY | 2025-04-30 13:16 | XMS_ITS | Clinical Summary ---
Author Organization [facility] Address [address] [address] Phone Care Team Providers Care Hi Ranger Operator Name Role Phone Sita Syed MD Primary Care Provider [phone] Allergies Active Allergy Reactions Criticality Noted Date [...] Health Maintenance Due Date Last Done Comments Hepatitis C Virus (HCV) Screening 1955 Cologuard 2001 Immunochemical Fecal Occult Blood 2001 SARS-COV-2 Immunization ( season) 2024 08/05/2022, 04/10/2022, 08/15/2021, Additional history exists Influenza Immunization (#1) 2025 110 11/2021, 07/29/2020, 07/31/2018, Additional history exists Colonoscopy 08/22/2027 08/22/2020 Colorectal Cancer Screening 08/22/2027 Respiratory Syncytial Virus (RSV) Immunization (Adult) (1 - 1-dose 75+ series) 2031 DTaP/Tdap/Td Immunization Discontinued 12/14/2007 TdaP Immunization Completed 12/14/2007 Zoster Immunization Completed 11/12/2020, Pneumococcal Immunization (50+ years) Completed 03/08/2022, 09/11/2021 Pneumococcal Immunization Combined Discontinued 03/08/2022, 09/11/2021 Hepatitis B Immunization Aged Out No longer eligible based on patient's age to complete this topic Human Papillomavirus (HPV) Immunization Aged Out No longer eligible based on patient's age to complete this topic Meningococcal Immunization (ACWY) Aged Out No longer eligible based on patient's age to complete this topic Rotavirus Immunization Aged Out No lo nger eligible based on patient's age to complete this topic Medical Devices Implanted Type Area Mechanical Applications Engineer Device Identifier Shelf Expiration Date Model / Serial / Lot Right Intraocular Lens Implanted:Qty: 1 on 03/29/2023 by Gurmeet Sanchez MD at [facility] Right: Eye [employer] 08/10/2027 [id number] / [id number] / [id number] Procedures Procedure Name Priority Date/Time Associated Diagnosis Comments COLONOSCOPY Routine 08/22/2020 from Last 3 Months or Most Recently Relevant to Health Maintenance Results * COLONOSCOPY (08/22/2020) John Bassett DO PROCEDURE/MINOR SURGICAL ORDERA BLES Final Result from Last 3 Months or Most Recently Relevant to Health Maintenance Insurance MEDICARE C AETNA Care Teams Hi Ranger Operator Relationship Specialty Start Date End Date Sita Syed MD [address] [place] [address] PCP - General Family Medicine 03/29/23
--- OUTSIDE RECORDS SUMMARY | 2025-04-30 13:16 | XMS_ITS | Referral Summary ---
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
--- NOTE | 2025-04-30 13:36 | ECG_ITS ---
Test Date: 2025-04-30 13:45:25 Measurements Intervals [place] Rate: 85 P: 71 ND: 143 QRS: 53 QRSD: 85 T: 63 QT: 329 QTc: 393 Interpretive Statements SINUS RHYTHM Electronically Signed On 05-01-2025 17:08:02 CDT by Kaden Romero D.O
[2025-04-30 13:56] LABS: Hematocrit 38.5 % (37.0-47.0); Hemoglobin 12.6 g/dL (12.0-15.0)
[2025-04-30 14:28] LABS: Albumin Level 4.3 g/dL (3.5-5.1); Estimated Glomerular Filt Rate > 60
== END 2025-04-30 13:13 | disposition home or self-care (01) ==
PROVIDERS: PCP Family Medicine; Visit Provider Orthopaedic Surgery
DX: M75.101 Unspecified rotator cuff tear or rupture of right shoulder, not specified as traumatic (principal); M12.811 Other specific arthropathies, not elsewhere classified, right shoulder; I10 Essential (primary) hypertension; Z79.899 Other long term (current) drug therapy
CPT/HCPCS: 80307; 82040; 82565; 85014; 85018; 93005

== ENCOUNTER 2025-05-31 14:33 | Outpatient (CLI) | payer MEDICARE, SELFPAY ==
--- OUTSIDE RECORDS SUMMARY | 2025-05-31 14:36 | XMS_ITS | Clinical Summary ---
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
--- OUTSIDE RECORDS SUMMARY | 2025-05-31 14:36 | XMS_ITS | Clinical Summary ---
Author Organization [facility] Address [address] [address] Phone Care Team Providers Care Granite Worker Name Role Phone Sita Syed MD Primary Care Provider [phone] Allergies Active Allergy Reactions Criticality Noted Date [...] this topic Medical Devices Implanted Type Area Assembler Rubber Footwear Device Identifier Shelf Expiration Date Model / Serial / Lot Right Intraocular Lens Implanted:Qty: 1 on 03/29/2023 by Gurmeet Sanchez MD at [facility] Right: Eye [employer] 08/10/2027 [id number] / [id number] / [id number] Procedures Procedure Name Priority Date/Time Associated Diagnosis Comments COLONOSCOPY Routine 08/22/2020 from Last 3 Months or Most Recently Relevant to Health Maintenance Results * COLONOSCOPY (08/22/2020) John Bassett DO PROCEDURE/MINOR SURGICAL ORDERA BLES Final Result from Last 3 Months or Most Recently Relevant to Health Maintenance Insurance MEDICARE C AETNA Care Teams Granite Worker Relationship Specialty Start Date End Date Sita Syed MD [address] [place] [address] PCP - General Family Medicine 03/29/23
== END 2025-05-31 14:34 | disposition home or self-care (01) ==
PROVIDERS: PCP Family Medicine; Visit Provider Orthopaedic Surgery
DX: Z79.899 Other long term (current) drug therapy (principal)
CPT/HCPCS: 80307

== ENCOUNTER 2025-08-03 09:51 | Outpatient (CLI) | payer MEDICARE, SELFPAY ==
--- OUTSIDE RECORDS SUMMARY | 2025-01-16 06:00 | XMS_ITS ---
Author Organization [facility] Address [address] [place] [address] Care Team Providers Care Electric Meter Technician Name Role Phone Lynette Castro Primary Care Provider Ruth Clemente Unavailable [phone] Allergies Allergen (clinical drug ingredient) Drug/Non Drug Allergy documented on EMR Reaction Allergy Type Onset Date Status prednisone predniSONE Unknown Drug Allergy Activ e REASON FOR VISIT Right Sacroiliac Joint Injection Medications Medication SIG (Take, Route, Frequency, Duration) Notes Start Date End Date Status Albuterol Sulfate 108 (90 Base) MCG/ACT 1 puff as needed Inhalation every 4 hrs Active Naproxen 375 MG 1 tablet with food o r milk as needed Orally every 12 hrs Active Lisinopril 20 MG 1 tablet Orally Once a day for 30 day(s) Active busPIRone HCl 10 MG 1 tablet Orally Twic e a day Active Pregabalin 75 MG 1 capsule Orally Twi ce a day Active Montelukast Sodium 10 MG 1 tablet Orally Once a day for 30 day(s) Active ZyrTEC 10 MG 1 tablet Orally Once a day for 30 day(s) Active Calcium 500 MG 1 tablet with meals Orally Twice a day for 30 day(s) Active Vitamin B Complex - as directed Orally Active CeleBREX 100 MG 1 capsule with food Orally Once a day for 30 days Active Advil 200 MG 1 tablet with food o r milk as needed Orally TID Active Encounters Encounter Location Date Provider Diagnosis [facility] [address] [place] [address] 01/16/2025 Ruth Zhong Sacroiliitis, not elsewhere classified M46.1 Assessments Encounter Date Diagnosis (ICD Code) Assessment Notes Treatment Notes Treatment Clinical Notes Section Notes 01/16/2025 Sacroiliitis, not elsewhere classified (ICD-10 - M46.1) Plan Of Treatment Next Appt Details Provider Name:John Colbert, Edmond 10/07/2024 11:15:00 AM, [address] [place], [address], Progress Notes * Jemma VILLEGASOB:1955 ( 70 yo F)Acc No.[id number]:01/16/2025 Injection Patient: Libby CRUZ Provider: Morgan Zhong MD :1955 A ge:69 Y S ex:Female Date:01/16/2025 Address:[address] [place], [place] [id number] Pcp:Lynette Castro Subjective: * Chief Complaints: * 1 . Right Sacroiliac Joint Injection. * HPI: C omplaints: PROCEDURE NOTE PROCEDURE: 1. Sacroiliac joint injection on the Right 2. SI joint arthrogram 3. Radiographic interpretation of sacroiliac joint. 4. Fluoroscopic imaging for precise needle position localization DIAGNOSIS: 1. Sacroilitis MEDICATION USED: 1. SI joint local anesthetic: 3 ml marcaine 0.5%, 2. Local anesthetic:5 ml lidocaine 1% 3. Intraarticular steroid: 80 mg Depo-Medrol (methylprednisolone) 4. Contrast agent: 3 ml Omnipaque-300, SUBJECTIVE: This patient presents today for a Right sacroiliac joint injection. PROCEDURE DESCRIPTION: Informed consent for the procedure was obtained and the patient signed the procedure consent form. The patient was given sufficient time to ask questions related to the procedure and to discuss expectations and the overall plan of treatment. The patient was brought into the procedure room and placed in the appropriate position for the procedure as noted above. Betadine (or alcohol if the patient carried an iodine allergy history) was used to prepare the skin over the appropriate location for the injection and sterile drapes were applied. Strict aseptic technique was followed during the procedure. The patient was brought into the procedure room and placed in the appropriate position for the procedure above. An initial RADIOLOGIC EXAMINATION, of the SACROILIAC JOINTS; LESS THAN THREE VIEWS was performed with a c-arm fluoroscope. The initial survey found moderate degenerative changes noted through the SI joint. A 22 Ga spinal needle was used for the procedure. This was advanced directly into the joint using oblique and angulated fluoroscopic views to most clearly define the caudal aspect of the posterior SI joint line. Once needle placement was confirmed within the joint by various fluoroscopic views and by the use of contrast agent, the patient received the steroid and local anesthetic as noted above after careful aspiration for blood. The SI joint arthrogram, if performed, is reported below. The patient had no ill effects from the procedure. The patient was taken to and watched in the recovery area for an appropriate period of time and then released to home once discharge criteria were met and discharge planning/subsequent appointments were made. SI JOINT ARTHROGRAM: 1. Contrast was seen to spread evenly within the joint FLUOROSCOPIC IMAGING FINDINGS: An initial survey of the SI joint was performed with the C-arm fluoroscope. 2 views were obtained of the sacrioliac joint. The following were noted: 1. moderate degenerative changes were noted throughout the sacroiliac joint. COMPLICATIONS: NONE RESULTS: Percentage of relief PLAN: 1. Follow post procedure instructions and complete post procedure diary. 2. Continue medications as previously prescribed. 3. Follow up appointment within several weeks to check on patient post injection and to make any necessary medication adjustment and determine subsequent treatment steps. * Medical History: H igh Blood Pressure. * Medications: T aking Pregabalin 75 MG Capsule 1 capsule Orally Twice a day , Taking Lisinopril 20 MG Tablet 1 tablet Orally Once a day , Taking Naproxen 375 MG Tablet 1 tablet with food or milk as needed Orally every 12 hrs , Taking busPIRone HCl 10 MG Tablet 1 tablet Orally Twice a day , Taking Albuterol Sulfate 108 (90 Base) MCG/ACT Aerosol Powder Breath Activated 1 puff as needed Inhalation every 4 hrs , Taking Advil 200 MG Tablet 1 tablet with food or milk as needed Orally TID , Taking ZyrTEC 10 MG Tablet Chewable 1 tablet Orally Once a day , Taking Montelukast Sodium 10 MG Tablet 1 tablet Orally Once a day , Taking Vitamin B Complex - Tablet as directed Orally , Taking Calcium 500 MG Tablet 1 tablet with meals Orally Twice a day , Taking CeleBREX 100 MG Capsule 1 capsule with food Orally Once a day * Allergies: p redniSONE. Objective: * Vitals: Assessment: * Assessment: 1. S acroiliitis, not elsewhere classified - M46.1 (Primary) Plan: * Treatment: * Procedure Codes: 2 7096 INJECT SACROILIAC JOINT, Modifiers: RT , [address]0479 X-RAY EXAM SACROILIAC JOINTS, J1010 Injection, methylprednisolone acetate, 1 mg, Units: 80.00 , Modifiers: JZ * * Electronic signature of Ruth Zhong MD on 08/03/2025 at 10:23 AM CDT Sign off status: Pending * Provider: Morgan Zhong MD Date: 0 01/16/2025 Generated for Jovita rodriguez/Sherif/Surya on: 1 10:23 AM CDT History and Physical Notes * HPI (History of Present Illness) Category Sub-Category Detail Notes Category Not es Complaints PROCEDURE NOTE PROCEDURE: 1. Sacroiliac joint injection on the Right 2. SI joint arthrogram 3. Radiographic interpretation of sacroiliac joint. 4. Fluoroscopic imaging for precise needle position localization DIAGNOSIS: 1. Sacroilitis MEDICATION USED: 1. SI joint local anesthetic: 3 ml marcaine 0.5%, 2. Local anesthetic:5 ml lidocaine 1% 3. Intraarticular steroid: 80 mg Depo-Medrol (methylprednisolone) 4. Contrast agent: 3 ml Omnipaque-300, SUBJECTIVE: This patient presents today for a Right sacroiliac joint injection. PROCEDURE DESCRIPTION: Informed consent for the procedure was obtained and the patient signed the procedure consent form. The patient was given sufficient time to ask questions related to the procedure and to discuss expectations and the overall plan of treatment. The patient was brought into the procedure room and placed in the appropriate position for the procedure as noted above. Betadine (or alcohol if the patient carried an iodine allergy history) was used to prepare the skin over the appropriate location for the injection and sterile drapes were applied. Strict aseptic technique was followed during the procedure. The patient was brought into the procedure room and placed in the appropriate position for the procedure above. An initial RADIOLOGIC EXAMINATION, of the SACROILIAC JOINTS; LESS THAN THREE VIEWS was performed with a c-arm fluoroscope. The initial survey found moderate degenerative changes noted through the SI joint. A 22 Ga spinal needle was used for the procedure. This was advanced directly into the joint using oblique and angulated fluoroscopic views to most clearly define the caudal aspect of the posterior SI joint line. Once needle placement was confirmed within the joint by various fluoroscopic views and by the use of contrast agent, the patient received the steroid and local anesthetic as noted above after careful aspiration for blood. The SI joint arthrogram, if performed, is reported below. The patient had no ill effects from the procedure. The patient was taken to and watched in the recovery area for an appropriate period of time and then released to home once discharge criteria were met and discharge planning/subsequent appointments were made. SI JOINT ARTHROGRAM: 1. Contrast was seen to spread evenly within the joint FLUOROSCOPIC IMAGING FINDINGS: An initial survey of the SI joint was performed with the C-arm fluoroscope. 2 views were obtained of the sacrioliac joint. The following were noted: 1. moderate degenerative changes were noted throughout the sacroiliac joint. COMPLICATIONS: NONE RESULTS: Percentage of relief PLAN: 1. Follow post procedure instructions and complete post procedure diary. 2. Continue medications as previously prescribed. 3. Follow up appointment within several weeks to check on patient post injection and to make any necessary medication adjustment and determine subsequent treatment steps.
--- OUTSIDE RECORDS SUMMARY | 2025-02-09 09:37 | XMS_ITS ---
Author Organization [facility] Address [address] [place] [address] Care Team Providers Care Product Manager Medical Device Name Role Phone Lynette Castro Primary Care Provider Ruth Clemente [phone] Allergies Allergen (clinical drug ingredient) Drug/Non Drug Allergy documented on EMR Reaction Allergy Type Onset Date Status prednisone predniSONE elevated BP Drug Allergy Act paulette REASON FOR VISIT Pre-Procedure Phone Call Medications Medication SIG (Take, Route, Frequency, Duration) Notes Start Date End Date Status Pregabalin 75 MG 1 capsule Orally Twi ce a day Active Lisinopril 20 MG 1 tablet Orally twic e a day Active Mucinex 600 MG 1 tablet as needed Orally every 12 hrs Active Calcium + D3 250-3 MG-MCG as directed Orally Active ZyrTEC Allergy 10 MG 1 capsule Orally On ce a day for 30 day(s) Active amLODIPine Besylate 5 MG 1 tablet Orally Once a day for 30 day(s) Active CeleBREX 100 MG 1 capsule with food Orally Once a day for 30 days Active Ezetimibe 10 MG 1 tablet Orally Once a day for 30 day(s) Active Montelukast Sodium 10 MG 1 tablet Orally Once a day for 30 day(s) Not-Taking busPIRone HCl 10 MG 1 tablet Orally Twic e a day Active Advil 200 MG 1 tablet with food o r milk as needed Orally TID Active Naproxen 375 MG 1 tablet with food o r milk as needed Orally every 12 hrs Active Encounters Encounter Location Date Provider Diagnosis [facility] [address] [place], [place] [id number] 02/09/2025 Ruth Zhong Plan Of Treatment Next Appt Details Provider Name:John Colbert, 1 10/07/2024 11:15:00 AM, [address] [place], [address], Progress Notes * Jemma VILLEGASOB:1955 ( 70 yo F)Acc No.[id number]:02/09/2025 Patient: Libby CRUZ :1955 A ge:69 Y S ex:Female Address:[address] [place] [address], [address] Subjective: * Chief Complaints: * P re-Procedure Phone Call * Medical History: * Surgical History: E ye-Macular Vitrectomy/Gas 2021, 2023 * Hospitalization/Major Diagno stic Procedure: * Medications: T akingEzetimibe 10 MG Tablet 1 tablet Orally Once a day amLODIPine Besylate 5 MG Tablet 1 tablet Orally Once a day Mucinex 600 MG Tablet Extended Release 12 Hour 1 tablet as needed Orally every 12 hrs Calcium + D3 250-3 MG-MCG Tablet as directed Orally ZyrTEC Allergy 10 MG Capsule 1 capsule Orally Once a day Pregabalin 75 MG Capsule 1 capsule Orally Twice a day Lisinopril 20 MG Tablet 1 tablet Orally twice a day Naproxen 375 MG Tablet 1 tablet with food or milk as needed Orally every 12 hrs busPIRone HCl 10 MG Tablet 1 tablet Orally Twice a day Advil 200 MG Tablet 1 tablet with food or milk as needed Orally TID CeleBREX 100 MG Capsule 1 capsule with food Orally Once a day Taking Ezetimibe 10 MG Tablet 1 tablet Orally Once a day Taking amLODIPine Besylate 5 MG Tablet 1 tablet Orally Once a day Taking Mucinex 600 MG Tablet Extended Release 12 Hour 1 tablet as needed Orally every 12 hrs Taking Calcium + D3 250-3 MG-MCG Tablet as directed Orally Taking ZyrTEC Allergy 10 MG Capsule 1 capsule Orally Once a day Taking Pregabalin 75 MG Capsule 1 capsule Orally Twice a day Taking Lisinopril 20 MG Tablet 1 tablet Orally twice a day Taking Naproxen 375 MG Tablet 1 tablet with food or milk as needed Orally every 12 hrs Taking busPIRone HCl 10 MG Tablet 1 tablet Orally Twice a day Taking Advil 200 MG Tablet 1 tablet with food or milk as needed Orally TID Taking CeleBREX 100 MG Capsule 1 capsule with food Orally Once a day Not-Taking/PRNMontelukast Sodium 10 MG Tablet 1 tablet Orally Once a day Not-Taking/PRN Montelukast Sodium 10 MG Tablet 1 tablet Orally Once a day DiscontinuedAlbuterol Sulfate 108 (90 Base) MCG/ACT Aerosol Powder Breath Activated 1 puff as needed Inhalation every 4 hrs ZyrTEC 10 MG Tablet Chewable 1 tablet Orally Once a day Vitamin B Complex - Tablet as directed Orally Calcium 500 MG Tablet 1 tablet with meals Orally Twice a day Discontinued Albuterol Sulfate 108 (90 Base) MCG/ACT Aerosol Powder Breath Activated 1 puff as needed Inhalation every 4 hrs Discontinued ZyrTEC 10 MG Tablet Chewable 1 tablet Orally Once a day Discontinued Vitamin B Complex - Tablet as directed Orally Discontinued Calcium 500 MG Tablet 1 tablet with meals Orally Twice a day * Allergies: p redniSONE: elevated BPno[Allergies Verified] Objective: * Vitals: * Physical Examination: Assessment: Plan: * Treatment: * Procedure Codes: * * Date:
--- OUTSIDE RECORDS SUMMARY | 2025-02-21 04:15 | XMS_ITS ---
Author Organization [facility] Address [address] [place] [address] Care Team Providers Care Hydrogeology Professor Name Role Phone Lynette Castro Primary Care Provider Ruth Clemente Unavailable [phone] REASON FOR VISIT SCS Trial Encounters Encounter Location Date Provider Diagnosis [facility] [place] [address] [place] [address] 02/21/2025 Ruth Zhong Lumbar radiculopathy M54.16 Assessments Encounter Date Diagnosis (ICD Code) Assessment Notes Treatment Notes Treatment Clinical Notes Section Notes 02/21/2025 Lumbar radiculopathy (ICD-10 - M54.16) Plan Of Treatment Next Appt Details Provider Name:John Colbert, Edmond 10/07/2024 11:15:00 AM, [address] [place] [address], [address], Progress Notes * Jemma VILLEGASOB:1955 ( 70 yo F)Acc No.[id number]:02/21/2025 Patient: Jimmy CRUZil Provider: Morgan Zhong MD :1955 A ge:69 Y S ex:Female Date:02/21/2025 Address:[address] [place], [place] [id number] Pcp:Lynette Castro * * Electronic signature of Ruth Zhong MD on 08/03/2025 at 10:24 AM CDT Sign off status: Pending * Provider: Morgan Zhong MD Date: 0 02/21/2025 Generated for Jovita rodriguez/Sherif/Nareshitting on: 1 10:24 AM WILEYT
--- OUTSIDE RECORDS SUMMARY | 2025-06-14 03:30 | XMS_ITS ---
Author Organization [facility] Address [address] [place] [address] Care Team Providers Care Chemistry Manager Name Role Phone Lynette Castro Primary Care Provider Ruth Clemente Unavailable [phone] Teja Aviles Unavailable [phone] REASON FOR VISIT 3 Months Encounters Encounter Location Date Provider Diagnosis [facility] [address] [place] [address] 06/14/2025 Teja Aviles Plan Of Treatment Next Appt Details Provider Name:John Colbert, 1 10/07/2024 11:15:00 AM, [address] [place] [address], [address], Progress Notes * Jemma VILLEGASOB:1955 ( 70 yo F)Acc No.[id number]:06/14/2025 Progress Notes Patient: Libby CRUZ Provider: Ofelia Aviles :1955 A ge:69 Y S ex:Female Date:06/14/2025 Address:[address] [place], [place] [id number] Pcp:Lynette Castro Subjective: * Chief Complaints: * 1 . 3 Months. * Medical History: Objective: * Vitals: Assessment: Plan: * Treatment: * * Electronic signature of Matty Aviles on 08/03/2025 at 10:24 AM CDT Sign off status: Pending * Provider: Ofelia Aviles Date: 0 06/14/2025 Generated for Jovita rodriguez/Sherif/Surya on: 1 10:24 AM CDT
--- OUTSIDE RECORDS SUMMARY | 2025-07-17 06:00 | XMS_ITS ---
Author Organization [facility] [facility] Address [address] [place] [address] Care Team Providers Care Statistics Manager Name Role Phone Lynette Castro Primary Care Provider Ruth Clemente Unavailable [phone] REASON FOR VISIT Right Sacroiliac Joint Injection Medications Medication SIG (Take, Route, Frequency, Duration) Notes Start Date End Date Status Advil 200 MG 1 tablet with food o r milk as needed Orally TID Active Pregabalin 75 MG 1 capsule Orally Twi ce a day Active Naproxen 375 MG 1 tablet with food o r milk as needed Orally every 12 hrs Active Lisinopril 20 MG 1 tablet Orally twic e a day Active busPIRone HCl 10 MG 1 tablet Orally Twic e a day Active amLODIPine Besylate 5 MG 1 tablet Orally Once a day for 30 day(s) Active Ezetimibe 10 MG 1 tablet Orally Once a day for 30 day(s) Active Calcium + D3 250-3 MG-MCG as directed Orally Active Mucinex 600 MG 1 tablet as needed Orally every 12 hrs Active ZyrTEC Allergy 10 MG 1 capsule Orally On ce a day for 30 day(s) Active Montelukast Sodium 10 MG 1 tablet Orally Once a day for 30 day(s) Not-Taking CeleBREX 100 MG 1 capsule with food Orally Once a day for 90 days As needed Active Cephalexin 500 MG 1 capsule Orally Twi ce per day for 7 days 02/21/2025 Active Encounters Encounter Location Date Provider Diagnosis [facility] [address] 07/17/2025 Ruth Zhong Sacroiliitis, not elsewhere classified M46.1 Assessments Encounter Date Diagnosis (ICD Code) Assessment Notes Treatment Notes Treatment Clinical Notes Section Notes 07/17/2025 Sacroiliitis, not elsewhere classified (ICD-10 - M46.1) Plan Of Treatment Next Appt Details Provider Name:John Colbert, 1 10/07/2024 11:15:00 AM, [address] [place], [address], Progress Notes * Jimmy VILLEGASaBrtOB:1955 ( 70 yo F)Acc No.[id number]:07/17/2025 Injection Patient: Libby CRUZ Provider: Morgan Zhong MD :1955 A ge:69 Y S ex:Female Date:07/17/2025 Address:[address] [place], [place] [id number] Pcp:Lynette Castro Subjective: * Chief Complaints: * [...] joint. COMPLICATIONS: NONE RESULTS: Percentage of relief 50% PLAN: 1. Follow post procedure instructions and complete post procedure diary. 2. Continue medications as previously prescribed. 3. Follow up appointment within several weeks to check on patient post injection and to make any necessary medication adjustment and determine subsequent treatment steps. * Medical History: * Medications: T aking Ezetimibe 10 MG Tablet 1 tablet Orally Once a day , Taking amLODIPine Besylate 5 MG Tablet 1 tablet Orally Once a day , Taking Mucinex 600 MG Tablet Extended Release 12 Hour 1 tablet as needed Orally every 12 hrs , Taking Calcium + D3 250-3 MG-MCG Tablet as directed Orally , Taking ZyrTEC Allergy 10 MG Capsule 1 capsule Orally Once a day , Taking Pregabalin 75 MG Capsule 1 capsule Orally Twice a day , Taking Lisinopril 20 MG Tablet 1 tablet Orally twice a day , Taking Naproxen 375 MG Tablet 1 tablet with food or milk as needed Orally every 12 hrs , Taking busPIRone HCl 10 MG Tablet 1 tablet Orally Twice a day , Taking Advil 200 MG Tablet 1 tablet with food or milk as needed Orally TID , Taking Cephalexin 500 MG Capsule 1 capsule Orally Twice per day , Taking CeleBREX 100 MG Capsule 1 capsule with food Orally Once a day As needed, Not-Taking/PRN Montelukast Sodium 10 MG Tablet 1 tablet Orally Once a day Objective: * Vitals: Assessment: * Assessment: 1. S acroiliitis, not elsewhere classified - M46.1 (Primary) Plan: * Treatment: * Procedures: M oderate degenerative changes were noted throughout the sacroiliac joint. * Procedure Codes: 2 7096 INJECT SACROILIAC JOINT, Modifiers: RT , J1010 Injection, methylprednisolone acetate, 1 mg, Units: 80.00 , Modifiers: JZ * * Electronic signature of Ruth Zhong MD on 08/03/2025 at 10:24 AM CDT Sign off status: Pending * Provider: Morgan Zhong MD Date: Generated for Jovita rodriguez/Sherif/Surya on: 10:24 AM CDT History and Physical Notes * [...] joint. COMPLICATIONS: NONE RESULTS: Percentage of relief 50% PLAN: 1. Follow post procedure instructions and complete post procedure diary. 2. Continue medications as previously prescribed. 3. Follow up appointment within several weeks to check on patient post injection and to make any necessary medication adjustment and determine subsequent treatment steps.
--- OUTSIDE RECORDS SUMMARY | 2025-07-24 05:30 | XMS_ITS ---
Author Organization [facility] Address [address] [place] [address] Care Team Providers Care Prepress Manager Name Role Phone Lynette Castro Primary Care Provider Ruth Clemente Unavailable [phone] Allergies Allergen (clinical drug ingredient) Drug/Non Drug Allergy documented on EMR Reaction Allergy Type Onset Date Status prednisone predniSONE elevated BP Drug Allergy Act paulette REASON FOR VISIT Left Sacroiliac Joint Injection Medications Medication SIG (Take, Route, Frequency, Duration) Notes Start Date End Date Status busPIRone HCl 10 MG 1 tablet Orally Twic e a day Active Advil 200 MG 1 tablet with food o r milk as needed Orally TID Active CeleBREX 100 MG 1 capsule with food Orally Once a day for 90 days As needed Active Lisinopril 20 MG 1 tablet Orally twic e a day Active Naproxen 375 MG 1 tablet with food o r milk as needed Orally every 12 hrs Active Pregabalin 75 MG 1 capsule Orally Twi ce a day Active amLODIPine Besylate 5 MG 1 tablet Orally Once a day for 30 day(s) Active Mucinex 600 MG 1 tablet as needed O rally every 12 hrs Active Calcium + D3 250-3 MG-MCG as directed Orally Active ZyrTEC Allergy 10 MG 1 capsule Orally On ce a day for 30 day(s) Active Ezetimibe 10 MG 1 tablet Orally Once a day for 30 day(s) Active Encounters Encounter Location Date Provider Diagnosis [facility] [address] 07/24/2025 Ruth Zhong Sacroiliitis, not elsewhere classified M46.1 Assessments Encounter Date Diagnosis (ICD Code) Assessment Notes Treatment Notes Treatment Clinical Notes Section Notes 07/24/2025 Sacroiliitis, not elsewhere classified (ICD-10 - M46.1) Plan Of Treatment Next Appt Details Provider Name:John Colbert, Edmond 10/07/2024 11:15:00 AM, [address] [place], [address], Progress Notes * Jemma VILLEGASOB:1955 ( 70 yo F)Acc No.[id number]:07/24/2025 Injection Patient: Libby CRUZ Provider: Morgan Zhong MD :1955 A ge:69 Y S ex:Female Date:07/24/2025 Address:[address] [place], [place] [id number] Pcp:Lynette Castro Subjective: * Chief Complaints: * 1 . Left Sacroiliac Joint Injection. * HPI: C omplaints: PROCEDURE: 1. Sacroiliac joint injection on the Left 2. SI joint arthrogram 3. Radiographic interpretation of sacroiliac joint. 4. Fluoroscopic imaging for precise needle position localization The patient was brought into the procedure room and placed in the appropriate position for the procedure above. An initial RADIOLOGIC EXAMINATION, of the SACROILIAC JOINTS; LESS THAN THREE VIEWS was performed with a c-arm fluoroscope. The initial survey found moderate degenerative changes noted through the SI joint. DIAGNOSIS: 1. Sacroilitis MEDICATION USED: 1. SI joint local anesthetic: 3 ml Bupivacaine 0.5% 2. Local anesthetic: 5ml Lidocaine 1% sheet 3. Intraarticular steroid: 80 mg Depo-Medrol (methylprednisolone) 4. Contrast agent: 3 ml Omnipaque-300 per procedural documentation sheet. SUBJECTIVE: This patient that presents today for a Left sacroiliac joint injection. PROCEDURE DESCRIPTION: Informed consent [...] aseptic technique was followed during the procedure. A 22 Ga spinal needle was used [...] had no ill effects from the procedure. Vital signs were monitored and found to be stable throughout. These are reported on the procedure documentation sheet. The patient was taken to and watched in the recovery area for an appropriate period of time and then released to home in the care of a responsible adult once discharge criteria were met and discharge planning/subsequent appointments were made. SI JOINT ARTHROGRAM: 1. Contrast was seen to spread evenly within the joint FLUOROSCOPIC IMAGING FINDINGS: An initial survey of the SI joint was performed with the C-arm fluoroscope. Two views were obtained of the sacrioliac joint. The following were noted: 1. moderate degenerative changes were noted throughout the sacroiliac joint. COMPLICATIONS: NONE RESULTS: Percentage of relief 50% PLAN: 1. Follow post procedure instructions and complete post procedure diary. 2. Continue on present medications. 3. Follow up by telephone in a few days and return for follow up appointment within several weeks to check on patient post injection and to make any necessary medication adjustment and determine subsequent treatment steps. * Medical History: H igh Blood Pressure, High Cholesterol, Macular Hole - bilateral (s/p Vitrectomy/Gas), Anxiety, Osteoarthritis, Osteopenia. * Medications: T aking Ezetimibe 10 MG [...] milk as needed Orally TID , Taking CeleBREX 100 MG Capsule 1 capsule with food Orally Once a day As needed, Medication List reviewed and reconciled with the patient * Allergies: p redniSONE: elevated BP. Objective: * Vitals: Assessment: * Assessment: 1. S acroiliitis, not elsewhere classified - M46.1 (Primary) Plan: * Treatment: * Procedures: M oderate degenerative changes were noted throughout the sacroiliac joint. * Procedure Codes: 2 7096 INJECT SACROILIAC JOINT, Modifiers: LT , 52443 X-RAY EXAM SACROILIAC JOINTS, J1010 Injection, methylprednisolone acetate, 1 mg, Units: 80.00 , Modifiers: JZ * * Electronic signature of Ruth Zhong MD on 08/03/2025 at 10:24 AM CDT Sign off status: Pending * Provider: Morgan Zhong MD Date: Generated for Jovita rodriguez/Sherif/Nareshitting on: 10:24 AM CDT History and Physical Notes * HPI (History of Present Illness) Category Sub-Category Detail Notes Category Not es Complaints PROCEDURE: 1. Sacroiliac joint injection on the Left 2. SI joint arthrogram 3. Radiographic interpretation of sacroiliac joint. 4. Fluoroscopic imaging for precise needle position localization The patient was brought into the procedure room and placed in the appropriate position for the procedure above. An initial RADIOLOGIC EXAMINATION, of the SACROILIAC JOINTS; LESS THAN THREE VIEWS was performed with a c-arm fluoroscope. The initial survey found moderate degenerative changes noted through the SI joint. DIAGNOSIS: 1. Sacroilitis MEDICATION USED: 1. SI joint local anesthetic: 3 ml Bupivacaine 0.5% 2. Local anesthetic: 5ml Lidocaine 1% sheet 3. Intraarticular steroid: 80 mg Depo-Medrol (methylprednisolone) 4. Contrast agent: 3 ml Omnipaque-300 per procedural documentation sheet. SUBJECTIVE: This patient that presents today for a Left sacroiliac joint injection. PROCEDURE DESCRIPTION: Informed consent [...] aseptic technique was followed during the procedure. A 22 Ga spinal needle was used [...] had no ill effects from the procedure. Vital signs were monitored and found to be stable throughout. These are reported on the procedure documentation sheet. The patient was taken to and watched in the recovery area for an appropriate period of time and then released to home in the care of a responsible adult once discharge criteria were met and discharge planning/subsequent appointments were made. SI JOINT ARTHROGRAM: 1. Contrast was seen to spread evenly within the joint FLUOROSCOPIC IMAGING FINDINGS: An initial survey of the SI joint was performed with the C-arm fluoroscope. Two views were obtained of the sacrioliac joint. The following were noted: 1. moderate degenerative changes were noted throughout the sacroiliac joint. COMPLICATIONS: NONE RESULTS: Percentage of relief 50% PLAN: 1. Follow post procedure instructions and complete post procedure diary. 2. Continue on present medications. 3. Follow up by telephone in a few days and return for follow up appointment within several weeks to check on patient post injection and to make any necessary medication adjustment and determine subsequent treatment steps.
--- OUTSIDE RECORDS SUMMARY | 2025-08-03 10:24 | XMS_ITS | Clinical Summary ---
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
--- OUTSIDE RECORDS SUMMARY | 2025-08-03 10:24 | XMS_ITS | Clinical Summary ---
Author Organization [facility] Address [address] [address] Phone Care Team Providers Care Laborer Wrecking And Salvaging Name Role Phone Sita Syed MD Primary Care Provider [phone] Allergies Active Allergy Reactions Criticality Noted Date [...] Cologuard 2001 Immunochemical Fecal Occult Blood 2001 Medicare Initial AWV [id number] 10/04/2023 Influenza Immunization (#1) 2025 110 11/2021, 07/29/2020, 07/31/2018, Additional history exists SARS-COV-2 Immunization ( season) 2025 08/05/2022, 04/10/2022, 08/15/2021, Additional history exists Colonoscopy [...] this topic Medical Devices Implanted Type Area Auto Mechanic Apprentice Device Identifier Shelf Expiration Date Model / Serial / Lot Right Intraocular Lens Implanted:Qty: 1 on 03/29/2023 by Gurmeet Sanchez MD at [facility] Right: Eye [employer] 08/10/2027 [id number] / [id number] / [id number] Procedures Procedure Name Priority Date/Time Associated Diagnosis Comments COLONOSCOPY Routine 08/22/2020 from Last 3 Months or Most Recently Relevant to Health Maintenance Results * COLONOSCOPY (08/22/2020) John Bassett DO PROCEDURE/MINOR SURGICAL ORDERA BLES Final Result from Last 3 Months or Most Recently Relevant to Health Maintenance Insurance MEDICARE C [employer] Care Teams Laborer Wrecking And Salvaging Relationship Specialty Start Date End Date Sita Syed MD [address] [place] [address] PCP - General Family Medicine 03/29/23
--- OUTSIDE RECORDS SUMMARY | 2025-08-03 10:24 | XMS_ITS | Patient Health Record ---
[facility] Address [address] [place] [address] Care Team Providers Care Plumber'S Helper Name Role Phone Lynette Castro Primary Care Provider UnavailRuth Frost Unavailable [phone] Filemon John Unavailable [phone] Teja Aviles Unavailable [phone] Allergies Allergen (clinical drug ingredient) Drug/Non Drug Allergy documented on EMR Reaction Allergy Type Onset Date Status prednisone predniSONE elevated BP Drug Allergy Act paulette Reason For Referral Reason Right shoulder rotat or cuff tear Referral Organization [facility] Referring Provider First Name uRth Referring Provider Last Name Trevin Referring Provider Speciality Pain Medic ine Referred Provider DERRICK HOSKINS Referral Priority Routine Medications Medication SIG (Take, Route, Frequency, Duration) Notes Start Date End Date Status busPIRone HCl 10 MG 1 tablet Orally Twic e a day Active Advil 200 MG 1 tablet with food o r milk as needed Orally TID Active CeleBREX 100 MG 1 capsule with food Orally Once a day for 90 days As needed Active Ezetimibe 10 MG 1 tablet Orally Once a day for 30 day(s) Active Lisinopril 20 MG 1 tablet Orally [...] ce a day for 30 day(s) Active Social History Tobacco Use: Social History Observation Description Date Details (start date - stop date) Former Smoker NA - NA Alcohol Screening Question Answer Notes Alcoholic drink in the past year Yes Frequency Two to four times a month (2 poi nts) Points 2 Interpretation Negative Screening Question Answer Notes Are you a current smoker? former smoker How long has it been since you last smoked? > 10 years Problems Problem Type SNOMED Code ICD Code Onset Dates Problem Status W/U Status Risk Notes Problem Lumbar spondylosis (097256991) Lumbar spondylosis (M47.816) Active confirmed Problem Solitary sacroiliitis (895335273) Sacroiliitis, not elsewhere classified (M46.1) Active confirmed Problem Degeneration of lumbosacral intervertebral disc (09680052) Other intervertebral disc degeneration, lumbosacral region (M51.37) Active confirmed Problem Lumbosacral spondylosis without myelopathy (disorder) (57963147) Spondylosis without myelopathy or radiculopathy, lumbosacral region (M47.817) Active confirmed Problem Rupture of right rotator cuff (1277849093966184 3) Unspecified rotator cuff tear or rupture of right shoulder, not specified as traumatic (M75.101) Active confirmed Problem Cervical spinal stenosis (13929535) Cervical spinal stenosis (M48.02) Active confirmed Problem Rotator cuff tear (781184220) Rotator cuff tear (M75.100) Active confirmed Problem Cervical radiculopathy (76546293) Cervical radiculopathy (M54.12) Active confirmed Encounters Encounter Location Date Provider Diagnosis [facility] [address] 01/16/2025 Ruth Zhong Sacroiliitis, not elsewhere classified M46.1 [facility] [address] [place] [address] 02/21/2025 Ruth Zhong Lumbar radiculopathy M54.16 [facility] [address] 07/17/2025 Ruth Zhong Sacroiliitis, not elsewhere classified M46.1 [facility] [address] 07/24/2025 Ruth Zhong Sacroiliitis, not elsewhere classified M46.1 [facility] [address] [place] [address] 08/17/2024 Lezama Ahmed Cervical radiculopathy M54.12 and Cervical spinal stenosis M48.02 [facility] [address] [place] [address] 09/19/2024 Ruth Joseopher Cervical radiculopathy M54.12 [facility] [address] [place] [address] 11/16/2024 Lezama Ahmed Cervical radiculopathy M54.12 ; Cervical spinal stenosis M48.02 and Acute pain of right shoulder M25.511 [facility] [address] [place] [address] 12/14/2024 Lezama Ahmed Acute pain of right shoulder M25.511 ; Unspecified rotator cuff tear or rupture of right shoulder, not specified as traumatic M75.101 and Sacroiliitis, not elsewhere classified M46.1 [facility] [address] 02/06/2025 Ruth Zhong Sacroiliitis, not elsewhere classified M46.1 [facility] [address] [place] [address] 02/27/2025 Lezama Ahmed Lumbar radiculopathy M54.16 and Spinal stenosis, lumbar region with neurogenic claudication M48.062 [facility] [address] 03/01/2025 Lezama Ahmed Sacroiliitis, not elsewhere classified M46.1 and Spinal stenosis, lumbar region with neurogenic claudication M48.062 [facility] [address] 06/21/2025 John Colbert Sacroiliitis, not elsewhere classified M46.1 and Lumbar Spondylosis without Myelopathy M47.816 [facility] [address] [place] [address] 10/24/2024 Ruth Camarillo. [facility] [address] [place] [address] 11/21/2024 [facility] [address] [place], [place] [id number] 02/09/2025 [facility] [address] [place], [place] [id number] 02/21/2025 Ruth Zhong Assessments Encounter Date Diagnosis (ICD Code) Assessment Notes Treatment Notes Treatment Clinical Notes Section Notes 01/16/2025 Sacroiliitis, not elsewhere classified (ICD-10 - M46.1) 02/21/2025 Lumbar radiculopathy (ICD-10 - M54.16) 07/17/2025 Sacroiliitis, not elsewhere classified (ICD-10 - M46.1) 07/24/2025 Sacroiliitis, not elsewhere classified (ICD-10 - M46.1) 08/17/2024 Cervical radiculopathy (ICD-10 - M54.12) Assessment is unchanged from 06/29/2024 except as denoted below. 08/17/2024 Cervical spinal stenosis (ICD-10 - M48.02) Assessment is unchanged from 06/29/2024 except as denoted below. 09/19/2024 Cervical radiculopathy (ICD-10 - M54.12) 11/16/2024 Cervical radiculopathy (ICD-10 - M54.12) Assessment is unchanged from 08/17/2024 except as denoted below. 11/16/2024 Cervical spinal stenosis (ICD-10 - M48.02) Assessment is unchanged from 08/17/2024 except as denoted below. 12/14/2024 Acute pain of right shoulder (ICD-10 - M25.511) Assessment is unchanged from 11/16/24 except as denoted below. 12/14/2024 Unspecified rotator cuff tear or rupture of right shoulder, not specified as traumatic (ICD-10 - M75.101) Assessment is unchanged from 11/16/24 except as denoted below. 02/06/2025 Sacroiliitis, not elsewhere classified (ICD-10 - M46.1) 02/27/2025 Lumbar radiculopathy (ICD-10 - M54.16) Assessment is unchanged from 12/14/2024 except as denoted below. 02/27/2025 Spinal stenosis, lumbar region with neurogenic claudication (ICD-10 - M48.062) Assessment is unchanged from 12/14/2024 except as denoted below. 03/01/2025 Sacroiliitis, not elsewhere classified (ICD-10 - M46.1) Assessment is unchanged from 02/27/2025 except as denoted below. 03/01/2025 Spinal stenosis, lumbar region with neurogenic claudication (ICD-10 - M48.062) Assessment is unchanged from 02/27/2025 except as denoted below. 06/21/2025 Sacroiliitis, not elsewhere classified (ICD-10 - M46.1) Assessment is unchanged from 03/01/25 except as denoted below. 06/21/2025 Lumbar Spondylosis without Myelopathy (ICD-10 - M47.816) Assessment is unchanged from 03/01/25 except as denoted below. 11/16/2024 Acute pain of right shoulder (ICD-10 - M25.511) Assessment is unchanged from 08/17/2024 except as denoted below. 12/14/2024 Sacroiliitis, not elsewhere classified (ICD-10 - M46.1) Assessment is unchanged from 11/16/24 except as denoted below. 08/17/2024 Other Notes: Significant time was spent due to complex decision-making as a result of the patient's complicated pain issues. The plan is as follows: Patient will continue exercise therapy regimen. Reviewed the patient's cervical spine MRI report with them. Answered all patient questions to their satisfaction. We will schedule a C6-7 Epidural Steroid Injection to target cervical radiculopathy that radiates to right upper extremity. We advised the patient that all blood thinners must be discontinued 1 week prior to the cervical HOMAR including NSAIDs and fish oil. The patient expressed understanding. We will prescribe Celebrex for pain control to be taken one week prior to the upcoming cervical HOMAR. Side effects discussed. Patient advised to contact the clinic if they develop any new or worsening pain symptoms. The total encounter time for today's visit was 30 minutes which was spent on preparation for the visit, e.g. chart review, and in the activities documented in this note. Assessment is unchanged from 06/29/2024 except as denoted below. 11/16/2024 Other Notes: Significant time was spent due to complex decision-making as a result of the patient's complicated pain issues. The plan is as follows: Patient will continue exercise therapy regimen. We will order an MRI of the right shoulder to evaluate for possible rotator cuff tears as a cause of the patient's pain symptoms in the right shoulder and arm. We will review imaging at a follow-up visit and plan for next treatment steps. Patient will contact her previous orthopedic doctor regarding possible consultation for surgical options. We discussed a Spinal Cord Stimulator as an option to manage the patient's chronic pain as they have failed conservative care including physical therapy, medication management, and epidural steroid injections. We discussed the risks and benefits of the procedure and answered any additional questions that the patient had. Patient has already completed a Psychiatric evaluation (Dr. Carrasquillo) to evaluate the patient's awareness of potential permanent implantation of the spinal cord stimulator. We have already completed a CT of the thoracic spine to assess the anatomy and plan for SCS lead placement.This is the last resort option as the patient has failed minimally invasive procedures including medication management, epidural steroid injections, and physical therapy. No medication changes at today's visit. Patient to continue any medications as prescribed. Follow-up in 1-2 weeks for MRI shoulder review and reassessment. Patient advised to contact the clinic if they develop any new or worsening pain symptoms. The total encounter time for today's visit was 30 minutes which was spent on preparation for the visit, e.g. chart review, and in the activities documented in this note. Assessment is unchanged from 08/17/2024 except as denoted below. 12/14/2024 Other Notes: Significant time was spent due to complex decision-making as a result of the patient's complicated pain issues. The plan is as follows: Patient will continue exercise therapy regimen. Reviewed the patient's right shoulder MRI report with them. Multiple rotator cuff and glenoid tears are present. Answered all patient questions to their satisfaction. We will refer the patient to Dr. Derrick Hoskins (ortho) in [place], [place], for further evaluation of the right shoulder. Patient states that she has been a patient of his in the past for knee issues. We will schedule a Right and then Left sacroiliac injection to target sacroiliitis that is causing posterior hip pain. We will order an x-ray of the pelvis to rule out tumor, fracture, or dislocation. Cervical SCS trial is pending scheduling. No medication changes at today's visit. Patient to continue any medications as prescribed. Patient advised to contact the clinic if they develop any new or worsening pain symptoms. The total encounter time for today's visit was 30 minutes which was spent on preparation for the visit, e.g. chart review, and in the activities documented in this note. Please refer back to the HPI and physical exam sections of this note for further details regarding this encounter. Assessment is unchanged from 11/16/24 except as denoted below. 02/27/2025 Other Notes: Significant time was spent due to complex decision-making as a result of the patient's complicated pain issues. The plan is as follows: Patient will continue exercise therapy regimen. The sutures, leads and EPG were removed without difficulty. Bandages were applied to the puncture sites and there was no bleeding after lead removal. The patient tolerated the procedure well without complications. Ammon Lucas from [employer] was present during the lead removal and collected all associated materials post-lead removal. Patient was advised that they may shower. Advised not to become fully submerged for two weeks, including bathtub, hot tub, swimming pool, lakes, or oceans. Advised pt to finish their SCS trial antibiotic as prescribed. Patient acknowledged understanding verbally. Dr. Zhong was consulted and agrees with the current assessment. The patient would not like to proceed with permanent placement of the SCS due to insufficient pain relief at this time. Discussed potential plan to extend trial by two more days to further evaluate level of pain relief which patient declined. Also discussed potential plan to retrial the lumbar SCS since there was some lead migration. Will further discuss these options at scheduled appointment on 03/01/2025. The total encounter time for today's visit was 30 minutes which was spent on preparation for the visit, e.g. chart review, and in the activities documented in this note. Please refer back to the HPI and physical exam sections of this note for further details regarding this encounter. Assessment is unchanged from 12/14/2024 except as denoted below. 03/01/2025 Other Notes: Significant time was spent due to complex decision-making as a result of the patient's complicated pain issues. The plan is as follows: Patient will continue exercise therapy regimen. Will refill Celebrex for patient's acute pain and to reduce inflammation. Discussed medication risks/potential side effects with the patient. Advised the patient to not take any other NSAIDs while taking this medication. The patient expresses understanding. The patient denies history of kidney or liver disease. No medication changes at today's visit. Patient to continue any medications as prescribed. Follow-up in 3 months for reassessment of SI pain. Patient advised to contact the clinic if they develop any new or worsening pain symptoms. The total encounter time for today's visit was 25 minutes which was spent on preparation for the visit, e.g. chart review, and in the activities documented in this note. Please refer back to the HPI and physical exam sections of this note for further details regarding this encounter. Assessment is unchanged from 02/27/2025 except as denoted below. 06/21/2025 Other Notes: Significant time was spent due to complex decision-making as a result of the patient's complicated pain issues. The plan is as follows: Patient will continue exercise therapy regimen. We will schedule the patient for a right then left SI joint injection to target their posterior hip pain stemming from sacroiliitis. Reviewed most recent pelvic xray which shows no acute bony pathology. Discussed procedure details, risks, benefits, alternatives and expected outcomes with the patient. The patient expresses understanding. All patient questions were answered. We will not add or change any medications at this time as the patient is currently tolerating all medications with no significant side effects. Advised pt to contact clinic if they develop any new/worsening symptoms or pain The total encounter time for today's visit was 30 minutes which was spent on preparation for the visit, e.g. chart review, and in the activities documented in this note. Please refer back to the HPI and physical exam sections of this note for further details regarding this encounter. Assessment is unchanged from 03/01/25 except as denoted below. Plan Of Treatment Pending Test Test Name Order Date MRI Cervical Spine without Contrast 06/05 MRI Cervical Spine without Contrast 04/03 MRI Lumbar Spine without contrast 2023 CT Scan Thoracic Spine without Contrast 04/20/2024 Xray Cervical Spine AP/LAT 2/3 Views Xray Pelvis Complete 3 Views 12/14/2024 MRI Shoulder, Right Without Contrast Next Appt Details Provider Name:John Colbert, 1 10/07/2024 11:15:00 AM, [address] [place], [address], Insurance Providers Payer Name Payer Address Payer Phone Subscriber Number Group Number Insured Name Patient Relationship to Insured Coverage Start Date Coverage End Date [employer] Medicare [address] [place] [phone] [id number] Libby Villegas Self - patient is the insured Medical (General) History Medical History History ICD Code High Blood Pressure High Cholesterol 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
[2025-08-03 11:17] LABS: Hematocrit 41.6 % (37.0-47.0); Hemoglobin 13.8 g/dL (12.0-15.0); Immature Granulocyte Percent A 0.9 % (0-0.5); Lymphocytes Absolute Auto 1.76 K/mm3 (0.9-3.2); Mean Corpuscular HGB Conc 33.2 g/dl (32-36); Mean Corpuscular Hemoglobin 29.2 pg (26-34); Mean Corpuscular Volume 87.9 fl (80-100); Nucleated Red Blood Cells Absolute Auto 0.000 K/mm3 (0.0-0.012); Nucleated Red Blood Cells Perc 0.0 % (0.0-0.2); Platelet Count Result 287 k/mm3 (150-375); Red Blood Count 4.73 M/mm3 (4.2-5.4); White Blood Count 8.0 K/mm3 (4.5-10.0)
[2025-08-03 12:24] LABS: MRSA (PCR) NOT DETECTED (NOT DETECTE)
== END 2025-08-03 09:52 | disposition home or self-care (01) ==
LOC: ANHSURGERY 09:55
PROVIDERS: PCP Student in an Organized Health Care Education/Training Program; Visit Provider Orthopaedic Surgery
DX: Z01.812 Encounter for preprocedural laboratory examination (principal); M75.101 Unspecified rotator cuff tear or rupture of right shoulder, not specified as traumatic
CPT/HCPCS: 36415; 85025; 87641

== ENCOUNTER 2025-08-22 15:57 | Inpatient (IN) | payer MEDICARE, SELFPAY ==
--- NOTE | 2025-08-03 09:54 | PC.NURSE ---
[facility] has started construction of its new state of the art ER which will open Spring 2026. With this, we anticipate parking may be a challenge for some our surgical patients and families. Parking spaces are limited but are available for all Surgical, obstetrics, and ER patients sharing this lot. If you arrive and find you are having a hard time finding a parking space, please note that we understand the challenges, please drive around the hospital and park near Hospital Entrance 1. When you enter this entrance, you can ask a volunteer to direct or take you back to the surgical waiting area to check in. We appreciate everyone?s understanding of these expected challenges while we build for your future. Report to the Outpatient Waiting Room, entrance under the green pavilion located off [address], at time __6AM on date _08/21/25 . Planned Procedure Time: __7:30 AM .? Time changes happen often and if your time is changed the preop area will call you the afternoon before. - You and your visitor will be asked to self-screen and do not enter if you have any COVID symptoms. Please call surgeon if you need to reschedule. - A mask is optional within the hospital at this time. Patients may have clear liquids (water, carbonated beverages, clear teas, apple juice) until 3 hours prior to surgery( 4:30 AM) with a maximum of 20 ounces. - No food from midnight until time of surgery and no smoking, or chewing tobacco (or any form of nicotine). No chewing gum, candy or mints. - Take only the following medications with a SIP of water on the morning of surgery: _,BUSPIRONE,PREGABALIN, EYE DROP DO NOT STOP ANY OF YOUR OTHER PRESCRIPTION MEDICATIONS PRIOR TO SURGERY EXCEPT THE FOLLOWING MAY CONTINUE CELEBREX PER DR SILVA.DO NOT TAKE MORNING OF SURGERY Hold all vitamins and supplements for 3 days per anesthesiologist.LAST DOSE08/17/25 Medications to discontinue per physician NAPROXEN_HOLD 7 DAYS PRE OP PER DR SILVA Date to take last dose__08/13/25 Please no make-up, nail hungarian, hairspray, perfume, deodorant, or body powder the day of surgery.? No jewelry (including any body piercings) or valuables the day of surgery, leave them at home.? Please take a shower or bath the night before, or the morning of, surgery with an antibacterial soap.? Wear comfortable, loose fitting clothing.? Children are encouraged to wear pajamas. - Jewelry must be removed prior to entering the operating room.? Rings and piercings that are not removed may be cut off. - The hospital will not accept responsibility for valuables.? - Please leave all valuables, including medications, at home the day of surgery. If you are going home after surgery, a licensed van driver helper must drive you home.? - NO public transportation without another adult if you receive anesthesia. - We recommend that an adult stay with you for 24 hours following discharge. - We also recommend that you do not drive, make important decision, drink alcoholic beverages, or take any drugs that were not prescribed by your health care provider for at least 24 hours after your discharge time. For Pediatric surgeries, we recommend two adults accompany the child home. Follow any additional instructions given to you from your surgeon. VERBAL AND WRITTEN instructions given to __PATIENT and asked if any additional questions and then verbalized understanding. Patient advised to call surgeon office or pre surgery nurse liaison [phone] if any additional questions.
[2025-08-03 09:59] VITALS: BMI 26.6
[2025-08-03 10:49] VITALS: BP 127/80; PULSE 80; RESP 18; TEMP 36.6; O2SAT 99
[2025-08-21] VITALS (16 sets, daily range): BP systolic 109–150; BP diastolic 51–81; PULSE 76–100; RESP 10–18; TEMP 35.7–36.6; O2SAT 98–100; BMI 26.9
[2025-08-21] MEDS: ACETAMINOPHEN 500 MG TABLET 1000 MG PO (06:00)
[2025-08-21] MEDS: LACTATED RINGERS 1,000 ML 30 ML IV CONT ×2 (06:50→10:00)
[2025-08-21] MEDS: TRANEXAMIC ACID 1,000MG/ISO100 1,000 MG/100 ML BAG 200 MG IVPB (06:50)
--- NOTE | 2025-08-21 07:19 | WPDHPUPDATE1 ---
History and Physical Update Update Date/Time: 08/21/25 07:19 History and Physical has been reviewed, including an updated exam of the patient. There are NO changes in the patient's condition. Risks, benefits, and alternatives have been discussed and questions answered. Patient agrees to proceed with procedure.
--- NOTE | 2025-08-21 07:26 | P.PNAN_ITS ---
Anes - Initial Pre Proc Eval Procedure: Operation Date: 08/21/25 07:30 Proposed Procedures p Right Reverse Total Shoulder Arthroplasty - Mitch Mandel MD Date/Time: 08/21/25 07:26 Surgeon: Mitch Mandel MD Pre Op Diagnosis: Rt rot cuff arthrotomy Patient Data Age: 70 Gender: F Height: 1.6 m Weight: 68.8 kg Last Vital Signs Temp 97.2 F L 08/21/25 07:11 Pulse 90 08/21/25 07:11 Resp 18 08/03/25 10:49 BP 130/81 08/21/25 07:11 Pulse Ox 100 08/21/25 07:11 O2 Del Method Room Air 08/21/25 07:11 Allergies Allergy/AdvReac Type Severity Reaction Status Date / Time prednisolone Allergy Severe raises Verified 08/03/25 11:51 blood pressure Home Medications ?Medication ?Instructions ?Recorded ?Confirmed ?Type cetirizine 10 mg tablet (Zyrtec) 10 mg PO DAILY #30 ta bs 09/11/21 08/03/25 Rx naproxen 375 mg tablet,delayed 375 mg PO PRN PRN pain 09/29/22 08/03/25 History release (EC-Naproxen) calcium 600 mg (as 1 cap PO DAILY 03/02/2308/04 History carbonate)-vitamin D3 12.5 mcg (500 unit) capsule (Calcium with Vit D3) vit A 7,160 unit-vit C 113 mg-vit See Rx Instructions .Route .COMPLEX 03/02/23 08/03/25 History E 100 quqh-xrfq-ialmqp tablet ezetimibe 10 mg tablet (Zetia) 10 mg PO DAILY #90 tabs 05/01/25 08/03/25 Rx montelukast 10 mg tablet 10 mg PO QHS 05/01/25 History pregabalin 75 mg capsule 75 mg PO BID #180 caps 05/0108/21/25 Rx lisinopril 20 mg tablet 20 mg PO BID #180 tabs 05/2808/03/25 Rx acetaminophen 650 mg 650 mg PO PRN PRN pain 08/0308/03/25 History tablet,extended release (8 Hour Pain Reliever) amlodipine 5 mg tablet 5 mg PO HS 08/03/25 08/03/25 History calcium polycarbophil 625 mg 625 mg PO DAILY 08/03/25 08/21/25 History tablet ([employer]) celecoxib 100 mg capsule 100 mg PO DAILY 08/03/25 History cyclosporine 0.05 % eye drops in a 1 drp EACH EYE Q12H 08/03/25 08/03/25 History dropperette dextromethorphan-guaifenesin 30 1 tablet PO Q12H 08/0308/03/25 History mg-600 mg tablet extended [id number] hr (Mucinex DM) diphenhydramine 25 1 tablet PO HS PRN sleep 08/03/25 History mg-acetaminophen 500 mg tablet (Night Time Pain Medicine) simethicone 180 mg capsule (Gas 180 mg PO DAILY PRN ab dominal 08/03/25 08/03/25 History Relief (simethicone)) distention vit A 7,160 unit-vit C 113 mg-vit tablet PO DAILY 07/0608/03/25 History E 100 ppov-uool-hdhqyg tablet buspirone 10 mg tablet See Rx Instructions .Route 1 10/10/24 08/21/25 Rx .COMPLEX #270 tabs aspirin 81 mg tablet,delayed 81 mg PO BID 14 days #28 tabs 08/21/25 Rx release oxycodone-acetaminophen 5 mg-325 1 - 2 tablet PO Q4-6H PRN pain 7 08/21/25 Rx mg tablet days #30 tabs Laboratory Tests 08/21/25 06:35 Blood Type Pending Antibody Screen Pending Patient hx anesthesia problems: post op nausea/vomiting Family hx anesthesia problems: none Results Review: All pre-operative results and documents have been reviewed as part of the pre- operative evaluation. [facility] Past Medical History Medical History Pain in lower extremity due to sciatica Hyponatremia Anxiety Shingles Acute bacterial conjunctivitis Scoliosis of cervical spine Cervical spine pain Multilevel degenerative disc disease Surgical History Surgical History H/O eye surgery History of vitrectomy H/O colonoscopy [place] teeth extracted Family History Family History Father Hypertension Heart disease Mother Asthma Hypertension Heart disease Sibling Hypertension Heart disease Other Asthma Depression Other Diabetes mellitus Family history of chronic obstructive pulmonary disease Family history of coronary artery disease Social History Social History Smoking packs per day: 1 Smoking cigarettes per day: 20.0 Years smoked: 35 Smoking pack-years: 35.00 Smoking status: Former smoker Tobacco type: cigarettes Second hand tobacco smoke exposure: No Smoking end date: 09/03/07 Alcohol intake: current Drinks per week: 2 Alcohol use details: 1-2 glasses of wine per week Substance use: never Substance use type: does not use Do You Feel Safe in your Home?: No Lack of Transportation: No Lack of Food: Never True Current Housing: Decline to Answer Concerned About Future Housing: Decline to Answer Difficulty Paying Gas/Electric Bills: Decline to Answer Difficulty Paying for Meds: Decline to Answer Currently Unemployed: Decline to Answer Education: Bachelor's Degree Difficulty w/ Childcare or Family Care: Decline to Answer Living arrangements: with family Occupation/Education: retired Gender identity (if verbalized by the patient): Female Spiritual care concerns: No Anes - Eval Final PreProcedure Day of Procedure 08/21/25 07:26 Patient weight: normal Heart: regular rate and rhythm Lungs: clear to auscultation Airway: Mallampati scale class II Neurological: alert and oriented Last oral intake: >/= 8 hours ASA classification: III Emergent: no Anesthetic plan: proceed Anesthesia type and monitoring: general ETT and standard monitoring Results Review: All pre-operative results and documents have been reviewed as part of the pre- operative evaluation. Informed Consent: The patient's anesthetic plan and its attendant risks and benefits were discus sed with the patient/family/POA. Questions were solicited and answers provided to the satisfaction of the patient/family/POA.
[2025-08-21] MEDS: SCOPOLAMINE 1 MG PATCH 1 PATCH TRANSDERM (07:28)
[2025-08-21] MEDS: ceFAZolin 2 GM in SODIUM CHLORIDE 0.9% IV 50 ML 100 ML IVPB ×2 (07:34→15:59)
--- NOTE | 2025-08-21 08:03 | P.OP_ITS ---
Procedure Note - Detailed Date of Procedure 08/21/25 Pre-op Diagnosis Right shoulder rotator cuff arthropathy. Post-op Diagnosis Same Procedure Performed Reverse total shoulder arthroplasty, right Surgeon Mitch Mandel MD Anesthesia General Indications Massive cuff tear with mild degenerative changes. Description of Procedure Preoperative antibiotics were given. The patient was transferred to the operating room and a general anesthetic was administered. The beach chair position was used at 45 degrees. All bony prominences were padded. The head was carefully stabilized on the [facility] head of visual merchandising. A sterile prep and drape was performed in the usual manner with ChloraPrep. A longitudinal incision was created at the anterior shoulder just lateral to the deltopectoral interval. Careful dissection was performed to expose the interval and protect the cephalic vein. The vein was retracted medially. Anterior circumflex vessel branches were suture ligated. The biceps was previously ruptured. A subscapularis tenotomy was performed. The inferior capsule was released, exposing the humeral head. Osteophytes were removed. Care was taken to stay on bone to protect the axillary nerve. The neck anteversion and inclination were carefully assessed. Version was between 20? and 30?. The anatomic head cut was taken with the oscillating saw. The cut protector was placed, and attention was turned to the glenoid. Retractors were placed. Releases were carried out for exposure. The subscapularis was mobilized, the inferior capsule and long head of triceps released, and the superior and middle glenohumeral ligaments released as well. Labral tissue was resected as needed. Version and inclination were corrected according to preoperative templating. The sizing template was used to assess the baseplate position low on the glenoid, with an approximate 5 degrees corrections of retroversion and 5 degrees of inclination. A guide pin was placed. Minimal reaming was used to accomplish a flat surface without violating the subchondral bone. The boss was drilled, and the real component was impacted into position. The central compression screw was placed. Supplemental locking screws were placed superiorly, anteriorly and inferiorly. The glenosphere was impacted into the taper. Attention was turned to the humerus. The guide pin was placed, central drilling performed, and the broach trial inserted. The proximal humerus was reamed for the inset component. The humeral components were trialed. The real humeral stem, tray, and insert were impacted into position. The shoulder was copiously irrigated periodically with pulsatile lavage. The shoulder was reduced and stability confirmed. 1 gram of Vancomycin powder was placed in the joint. The remaining tissue was closed with 2-0 Vicryl, 3-0 Stratafix and 4-0 Stratafix, and steri-strips. A sterile silver occlusive dressing and shoulder immobilizer were placed. The patient was transferred to the recovery room. Physician assistant coach, Elma Harman PA-C, required for surgery; including patient positioning, draping, arthroscopic camera operation, maintaining instrument position, wound closure, and dressing and sling placement. Implants Shoulder Innovations reverse TSA size 10, I90 stem. +0 polyethylene insert. 5 augmented baseplate. 33 + 3 mm glenosphere. Estimated Blood Loss 200 Drains No Pathology None sent Complications No immediate complications Condition Stable Disposition PACU [facility] Billing Surgery - Charge Forward: Surgery Billing
[2025-08-21] MEDS: SODIUM CHLORIDE 0.9% IV 37.7 ML, MORPHINE SULFATE INJ (*CRX) 2 MG, ROPivacaine HCL 1% 2... INFILTRATE (08:19)
[2025-08-21] MEDS: VANCOMYCIN HCL 1,000 MG VIAL 1000 MG TOPICAL (08:37)
[2025-08-21] MEDS: TRANEXAMIC ACID 1,000 MG/10 ML AMPUL 1000 MG IV PUSH (09:25)
[2025-08-21] MEDS: fentaNYL CITRATE INJ (*CRX) 100 MCG/2 ML VIAL 25 MCG IV PUSH ×7 (10:31→11:10)
--- NOTE | 2025-08-21 12:01 | ADMGEN ---
This patient, Libby Villegas, was admitted to [facility] Patient/family oriented to hospital policies and general routines including ID bracelet, bed and alarms, visiting hours, pain management, procedures, bathroom and other care routines, personal items, smoking policy, room service/diet, and visiting hours. Information on how to activate the Rapid Response Team has been discussed. Patient/Family are encouraged to report perceived risks to care and to ask questions if they do not understand what they are told or what they should do.
[2025-08-21] MEDS: oxyCODONE/ACETAMINOPHEN (*CRX) 10-325 MG TABLET 1 TAB PO ×2 (12:39→19:55)
[2025-08-21] MEDS: ACETAMINOPHEN 325 MG TABLET 650 MG PO ×2 (13:15→17:07)
[2025-08-21] MEDS: LORATADINE 10 MG TABLET PO (14:24)
[2025-08-21] MEDS: CELECOXIB 100 MG CAPSULE PO (14:25)
[2025-08-21] MEDS: FAMOTIDINE 20 MG TABLET PO ×2 (14:25→19:57)
[2025-08-21] MEDS: PREGABALIN (*CRX) 75 MG CAPSULE PO (17:07)
[2025-08-21] MEDS: CYCLOBENZAPRINE HCL 5 MG TABLET PO (17:07)
[2025-08-21] MEDS: ASPIRIN 81 MG ENTERIC TABLET PO (19:56)
[2025-08-21] MEDS: SENNA/DOCUSATE SODIUM TABLET 2 TAB PO (19:57)
[2025-08-21] MEDS: cycloSPORINE 0.4 ML OPHTH SOLUTION 1 DROP EACH EYE (20:54)
--- NOTE | ~2025-08-22 | XR_ITS ---
EXAMINATION: XR shoulder RT min 2V, 08/21/2025 10:35 [facility] [employer] HISTORY: POST OP RIGHT REVERSE TOTAL SHOULDER COMPARISON: No comparisons available. Findings: No acute fracture or malalignment. Arthroplasty intact Soft tissues unremarkable. Impression: No acute fracture or malalignment. Reviewed, dictated and finalized at location [facility] [employer] [facility] Impression: No acute fracture or malalignment.
[2025-08-22] MEDS: ceFAZolin 2 GM in SODIUM CHLORIDE 0.9% IV 50 ML 100 ML IVPB ×2 (00:11→06:43)
[2025-08-22] MEDS: ACETAMINOPHEN 325 MG TABLET 650 MG PO ×5 (00:13→23:18)
[2025-08-22 01:39] VITALS: BP 128/70; PULSE 97; RESP 16; TEMP 36.1; O2SAT 98
[2025-08-22 05:25] VITALS: BP 118/59; PULSE 87; RESP 16; TEMP 36.2; O2SAT 98
[2025-08-22 06:35] LABS: Hematocrit 32.4 % (37.0-47.0); Hemoglobin 10.6 g/dL (12.0-15.0); Immature Granulocyte Percent A 0.3 % (0-0.5); Lymphocytes Absolute Auto 0.94 K/mm3 (0.9-3.2); Mean Corpuscular HGB Conc 32.7 g/dl (32-36); Mean Corpuscular Hemoglobin 28.9 pg (26-34); Mean Corpuscular Volume 88.3 fl (80-100); Nucleated Red Blood Cells Absolute Auto 0.000 K/mm3 (0.0-0.012); Nucleated Red Blood Cells Perc 0.0 % (0.0-0.2); Platelet Count Result 181 k/mm3 (150-375); Red Blood Count 3.67 M/mm3 (4.2-5.4); White Blood Count 6.9 K/mm3 (4.5-10.0)
[2025-08-22] MEDS: CYCLOBENZAPRINE HCL 5 MG TABLET PO (06:45)
[2025-08-22 06:58] LABS: Anion Gap 5 mmol/L (4-12); Blood Urea Nitrogen 15 mg/dL (7-17); Calcium 8.2 mg/dL (8.4-10.2); Carbon Dioxide 26 mmol/L (22-30); Chloride 95 mmol/L (98-107); Estimated CRCL calculation 56 ml/min; Estimated Glomerular Filt Rate > 60; Glucose 76 mg/dL (65-110); Potassium 4.2 mmol/L (3.4-5.0); Sodium 126 mmol/L (137-145)
--- NOTE | 2025-08-22 07:41 | P.PNOP_ITS ---
Progress Note: A&P Assessment and Plan (1) Status post reverse total arthroplasty of right shoulder: Code(s): Z96.611 - Presence of right artificial shoulder joint Status: Acute Plan Postop day 1: Reverse total shoulder arthroplasty. Patient tolerated procedure well. No complications. Patient did have a low sodium today. 126. Asymptomatic. Recommended she restrict fluids today and eat salty foods. Will repeat later today. As long as it is trending up, patient may discharge and follow up with PCP in 1 week with re-check of patient's CMP. Pain manageable with pain medication. No numbness or tingling. We had a lengthy discussion regarding postoperative wound care, limitations, expectations, and exercises. Patient shows good understanding. Patient has had initial physical therapy and is tolerating it well. DVT prophylaxis: 81 mg baby aspirin b.i.d. for 14 days. Pain medication: Percocet. Patient has followup appointment with Dr. Mandel in 3 weeks. Subjective Subjective Date/Time Seen: 08/22/25 07:41 Interval history: Patient resting comfortably. No numbness or tingling. No CP, SOB, ABD pain, Headache. Review of Systems Review of Systems: All systems reviewed & are unremarkable except as noted in HPI and below Exam Narrative: Normal weight Female. Resting comfortably in bed. Wearing sling. Dressing dry and intact with no drainage. Mild swelling. Mild ecchymosis. No erythema. No hematoma. Range of motion limited due to pain. Calf nontender. Neurologic status intact. No varicosities. Distal pulses palpable. Axillary nerve fires. Objective Data Vital Signs Vital Signs: Vital Signs - 24 hr 08/21/25 10:00 08/21/25 10:15 08/21/25 10:30 Temperature 97 F L Pulse Rate 100 93 93 Respiratory Rate 11 L 10 L 14 Blood Pressure 150/68 H 133/63 132/72 Pulse Oximetry 100 100 100 Oxygen Delivery Simple Face Mask Simple Face Mask Simple Face Mask Oxygen Flow Rate 10 10 10 08/21/25 10:45 08/21/25 11:00 08/21/25 11:15 Temperature Pulse Rate 97 86 93 Respiratory Rate 13 16 17 Blood Pressure 113/54 L 109/53 L 120/58 L Pulse Oximetry 100 100 100 Oxygen Delivery Nasal Cannula Nasal Cannula Nasal Cannula Oxygen Flow Rate 4 2 2 08/21/25 11:30 08/21/25 11:54 08/21/25 12:00 Temperature 96.2 F L Pulse Rate 99 90 Respiratory Rate 16 18 Blood Pressure 136/78 Pulse Oximetry 100 99 98 Oxygen Delivery Nasal Cannula Nasal Cannula Oxygen Flow Rate 2 0.5 08/21/25 12:39 08/21/25 12:58 08/21/25 13:20 Temperature 96.3 F L 96.6 F L Pulse Rate 90 96 Respiratory Rate 18 16 Blood Pressure 128/51 L 132/61 Pulse Oximetry 98 98 Oxygen Delivery Room Air Oxygen Flow Rate 08/21/25 13:30 08/21/25 14:31 08/21/25 17:39 Temperature 96.3 F L 97.8 F Pulse Rate 76 82 Respiratory Rate 15 16 Blood Pressure 128/59 L 130/60 Pulse Oximetry 98 99 Oxygen Delivery Room Air Oxygen Flow Rate 08/21/25 20:00 08/21/25 20:30 08/21/25 21:56 Temperature Pulse Rate 98 Respiratory Rate 18 Blood Pressure 123/69 Pulse Oximetry 99 99 Oxygen Delivery Room Air Room Air Oxygen Flow Rate 08/22/25 01:39 08/22/25 05:25 Temperature 97 F L 97.1 F L Pulse Rate 97 87 Respiratory Rate 16 16 Blood Pressure 128/70 118/59 L Pulse Oximetry 98 98 Oxygen Delivery Oxygen Flow Rate Intake/Output Intake/Output: Intake & Output 08/19/25 08/20/25 08/21/25 08/22/25 23:59 23:59 23:59 23:59 Intake Total 1040 600 Balance 1040 600 Meds/Results Medications: Active Medications Generic Name Dose Route Start Last Admin Trade Name Markos PRN Reason Stop Dose Admin Acetaminophen 650 mg 08/21/25 12:00 08/22/25 06:42 Acetaminophen 325 Mg Tablet PO 650 mg Q6HR BARNEY Administration Amlodipine Besylate 5 mg 08/21/25 21:00 08/21/25 19:56 Amlodipine Besylate 5 Mg Tablet PO 5 mg HS BARNEY Administration Aspirin 81 mg 08/21/25 21:00 08/21/25 19:56 Aspirin 81 Mg Enteric Tablet PO 81 mg Q12HR BARNEY Administration Celecoxib 100 mg 08/21/25 14:00 08/21/25 14:25 Celecoxib 100 Mg Capsule PO 100 mg DAILY BARNEY Administration Cyclobenzaprine HCl 5 mg 08/21/25 11:54 08/22/25 06:45 Cyclobenzaprine Hcl 5 Mg Tablet PO 5 mg Q8H PRN Administration Spasms Cyclosporine 1 drop 08/21/25 21:00 08/21/25 20:54 Cyclosporine 0.4 Ml Ophth Solution EACH EYE 1 drop Q12H BARNEY Administration Diphenhydramine HCl 25 mg 08/21/25 11:54 Diphenhydramine Hcl Inj 50 Mg/Ml Vial IV PUSH Q6H PRN Itching Ezetimibe 10 mg 08/21/25 14:00 08/21/25 14:32 Ezetimibe 10 Mg Tablet PO Not Given DAILY BARNEY Famotidine 20 mg 08/21/25 14:00 08/21/25 19:57 Famotidine 20 Mg Tablet PO 20 mg Q12HR BARNEY Administration Hydromorphone HCl 1 mg 08/21/25 11:54 Hydromorphone Hcl Inj (*Crx) 1 Mg/Ml Syr IV PUSH Q2H PRN Breakthrough Pain Rated 7-10 or NPO Hydromorphone HCl 0.5 mg 08/21/25 11:54 Hydromorphone Hcl Inj (*Crx) 1 Mg/Ml Syr IV PUSH Q2H PRN Breakthrough Pain Rated 4-6 or NPO Lisinopril 20 mg 08/21/25 17:00 08/21/25 17:07 Lisinopril 20 Mg Tablet PO 20 mg BID BARNEY Administration Loratadine 10 mg 08/21/25 14:00 08/21/25 14:24 Loratadine 10 Mg Tablet PO 10 mg QAM BARNEY Administration Naloxone HCl 0.1 mg 08/21/25 11:54 Naloxone Hcl 0.4 Mg/Ml Vial IV PUSH Q2M PRN Opiate Reversal Ondansetron HCl 4 mg 08/21/25 11:54 Ondansetron Inj 4 Mg/2 Ml Vial IV PUSH Q4H PRN Nausea And Vomiting Oxycodone/Acetaminophen 1 tablet 08/21/25 11:54 Oxycodone/Acetaminophen (*Crx) 5-325 Mg Tablet PO Q4H PRN Pain Rated 4-6 Oxycodone/Acetaminophen 1 tab 08/21/25 11:54 08/21/25 19:55 Oxycodone/Acetaminophen (*Crx) 10-325 Mg Tablet PO 1 tab Q6H PRN Administration Pain Rated 7-10 Polyethylene Glycol 17 gm 08/21/25 14:00 08/21/25 14:26 Polyethylene Glycol 3350 17 Gm Powd.Pack PO 17 gm QAM BARNEY Administration Pregabalin 75 mg 08/21/25 17:00 08/21/25 17:07 Pregabalin (*Crx) 75 Mg Capsule PO 75 mg BID BARNEY Administration Senna/Docusate Sodium 2 tab 08/21/25 21:00 08/21/25 19:57 Senna/Docusate Sodium Tablet PO 2 tab Q12HR BARNEY Administration Simethicone 125 mg 08/21/25 12:50 Simethicone 125 Mg Chew Tab PO QID PRN abdominal distention/gas Tramadol HCl 50 mg 08/21/25 11:54 Tramadol Hcl (*Crx) 50 Mg Tablet PO Q4H PRN Pain Rated 1-3 Radiology Results: ITS Impressions Shoulder X-Ray 08/21/25 10:51 Impression: No acute fracture or malalignment. Labs Labs: Laboratory Results - last 24 hr 08/21/25 08/22/25 06:35 06:05 WBC 6.9 RBC 3.67 L Hgb 10.6 L D Hct 32.4 L MCV 88.3 MCH 28.9 MCHC 32.7 RDW 13.0 Plt Count 181 MPV 9.4 Immature Gran % (Auto) 0.3 Neut % (Auto) 76.9 H Lymph % (Auto) 13.7 L [place] % (Auto) 8.9 H Eos % (Auto) 0.1 Baso % (Auto) 0.1 L Lymph # (Auto) 0.94 [place] # (Auto) 0.6 Eos # (Auto) 0.0 Baso # (Auto) 0.0 Abs Immat Gran (auto) 0.02 Absolute Neuts (auto) 5.3 Absolute Nucleated RBC 0.000 Nucleated RBC % 0.0 Sodium 126 L Potassium 4.2 Chloride 95 L Carbon Dioxide 26 Anion Gap 5 BUN 15 Creatinine 0.76 Estim Creat Clear Calc 56 Estimated GFR > 60 Glucose 76 Calcium 8.2 L Blood Type O Positive Antibody Screen Negative
[2025-08-22] MEDS: SENNA/DOCUSATE SODIUM TABLET 2 TAB PO ×2 (09:18→20:14)
[2025-08-22] MEDS: CELECOXIB 100 MG CAPSULE PO (09:18)
[2025-08-22] MEDS: PREGABALIN (*CRX) 75 MG CAPSULE PO ×2 (09:18→16:21)
[2025-08-22] MEDS: cycloSPORINE 0.4 ML OPHTH SOLUTION 1 DROP EACH EYE ×2 (09:18→20:14)
[2025-08-22] MEDS: EZETIMIBE 10 MG TABLET PO (09:18)
[2025-08-22] MEDS: FAMOTIDINE 20 MG TABLET PO ×2 (09:18→20:14)
[2025-08-22] MEDS: LORATADINE 10 MG TABLET PO (09:19)
[2025-08-22] MEDS: ASPIRIN 81 MG ENTERIC TABLET PO ×2 (09:19→20:13)
[2025-08-22 09:39] VITALS: BP 110/67; PULSE 92; RESP 16; TEMP 36.4; O2SAT 97
[2025-08-22 13:39] VITALS: BP 104/73; PULSE 87; RESP 16; TEMP 36.3; O2SAT 98
[2025-08-22 13:44] LABS: Alanine Aminotransferase 17 U/L (6-35); Albumin Level 3.7 g/dL (3.5-5.1); Alkaline Phosphatase 80 U/L (38-126); Anion Gap 5 mmol/L (4-12); Aspartate Amino Transferase 35 U/L (14-36); Bilirubin,Total 0.5 mg/dL (0.2-1.3); Blood Urea Nitrogen 14 mg/dL (7-17); Calcium 8.0 mg/dL (8.4-10.2); Carbon Dioxide 25 mmol/L (22-30); Chloride 94 mmol/L (98-107); Estimated CRCL calculation 53 ml/min; Estimated Glomerular Filt Rate > 60; Glucose 91 mg/dL (65-110); Potassium 4.3 mmol/L (3.4-5.0); Sodium 124 mmol/L (137-145); Total Protein 6.8 g/dL (6.3-8.2)
--- NOTE | 2025-08-22 15:13 | PM.IMCN ---
Assessment and Plan Assessment and plan (1) Hyponatremia: Code(s): E87.1 - Hypo-osmolality and hyponatremia Status: Acute Assessment and Plan: Patient had surgery earlier this morning on her right shoulder. Initial lab work performed this morning which showed a sodium of 126, repeated this afternoon which was 124 despite the patient trying to drink a case rate and chicken broth to increase her sodium levels. Previous lab work reviewed and patient has history of hyponatremia, however lowest recorded it was at 132 in 2022. Home medications reviewed, patient is on BuSpar t.i.d. p.r.n. which could be contributing. Not on sodium tablet at home. - check serum osmolality, urine osmolality, urine sodium, protein/creatinine ratio, urine creatinine - received NS at 125 mL/hr x8 hrs yesterday, continue as NS 100 mL/hr - bmp Q3H - neurologically intact, monitor - nephrology consulted (2) Status post reverse total arthroplasty of right shoulder: Onset Date: 08/22/25 Code(s): Z96.611 - Presence of right artificial shoulder joint Status: Acute Assessment and Plan: The patient had a reverse total shoulder arthroplasty of the right side on 08/[address] Mandel. - use IS - neurovasc checks - see order for intervals - SCDs - analgesics p.r.n. and antiemetics p.r.n. - monitor labs in AM - CBC and BMP - bowel regimen: docusate/senna, polyethylene glycol - maintenance fluids: NS 125 mL/hr - PT/OT (3) Primary hypertension: Code(s): I10 - Essential (primary) hypertension Status: Chronic Assessment and Plan: - chronic, currently 104/73. - continue home medications: Amlodipine 5 mg HS, lisinopril 20 mg b.i.d. - monitor (4) Anxiety: Code(s): F41.9 - Anxiety disorder, unspecified Status: Chronic Assessment and Plan: Stable. - hold BuSpar 10 mg t.i.d. p.r.n. Plan Diet: Regular GI Prophylaxis: Famotidine DVT Prophylaxis: SCDs IV fluids: NS 125 mL/hour x8 hours Lines/Tubes: Peripheral IV Code Status: Full code HPI Date of Consult Consult date: 08/22/25 Requesting Physician: Mitch Mandel MD Primary Care Provider: Sita Syed, Consult Narrative Reason for consult: Medical Management, Hyponatremia Narrative: 70 y/o F with PMH of hypertension, hyperlipidemia, GERD, anxiety, scoliosis, and multilevel degenerative disc disease presents here for The patient has had chronic right shoulder pain for the past 2 years, had a fall and tore it but did not realize she had injured it for some time. Pain at baseline typically around 4-5/10 and worsened with active movement. Pain began limiting the patient in her daily activities and she had begun to use her left arm for certain tasks due to the pain. She was prescribed Celecoxib for her shoulder and Pregabalin for her residual neuropathic pain and due to prior shingles to her left upper extremity. Imaging has previously found a chronic massive, full-thickness rotator cuff tear with resultant superior humeral head migration and joint arthritic changes. Given these factors she elected to move forward with surgical management. She underwent a right reverse total shoulder arthroplasty on 08/21. Postoperatively she is reporting no significant pain, nausea, or vomiting. No dizziness, confusion, muscle weakness or headache. Preop VS: 97.8? F, HR 80, RR 18, 127/80, and 99% on RA. Preop workup: No leukocytosis, hemoglobin 10.6, sodium 126, creatinine 0.82 and GFR >60. Review of Systems Review of Systems: All systems reviewed & are unremarkable except as noted in HPI and below PMFSH Past Medical History Medical History (Updated 08/22/25 @ 15:25 by Melanie Rosas APRN) Hyponatremia Scoliosis of cervical spine Macular degeneration HLD (hyperlipidemia) Primary hypertension History of shingles LUE with residual nerve damage Pain in lower extremity due to sciatica Anxiety Cervical spine pain Multilevel degenerative disc disease Surgical History Surgical History Status post reverse total arthroplasty of right shoulder (08/22/25) History of bilateral cataract extraction H/O eye surgery History of vitrectomy H/O colonoscopy [place] teeth extracted Family History Family History Father Hypertension Heart disease Mother Asthma Hypertension Heart disease Sibling Hypertension Heart disease Other Asthma Depression Other Diabetes mellitus Family history of chronic obstructive pulmonary disease Family history of coronary artery disease Social History Social History Smoking packs per day: 1 Smoking cigarettes per day: 20.0 Years smoked: 35 Smoking pack-years: 35.00 Smoking status: Former smoker Second hand tobacco smoke exposure: No Alcohol intake: current Drinks per week: 2 Alcohol use details: 1-2 glasses of wine per week Substance use: never Substance use type: does not use Do You Feel Safe in your Home?: No Lack of Transportation: No Lack of Food: Never True Current Housing: Decline to Answer Concerned About Future Housing: Decline to Answer Difficulty Paying Gas/Electric Bills: Decline to Answer Difficulty Paying for Meds: Decline to Answer Currently Unemployed: Decline to Answer Education: Bachelor's Degree Difficulty w/ Childcare or Family Care: Decline to Answer Living arrangements: with family Occupation/Education: retired Gender identity (if verbalized by the patient): Female Spiritual care concerns: No Meds Home Medications and Allergies Home Medications ?Medication ?Instructions ?Recorded ?Confirmed ?Type cetirizine 10 mg tablet (Zyrtec) 10 mg PO DAILY #30 tabs 09/11/21 08/03/25 Rx naproxen 375 mg tablet,delayed 375 mg PO PRN PRN pain 09/29/22 08/03/25 History release (EC-Naproxen) calcium 600 mg (as 1 cap PO DAILY 03/02/23 08/21/25 History carbonate)-vitamin D3 12.5 mcg (500 unit) capsule (Calcium with Vit D3) vit A 7,160 unit-vit C 113 mg-vit See Rx Instructions .Route .COMPLEX 03/02/23 08/03/25 History E 100 [id number] tablet ezetimibe 10 mg tablet (Zetia) 10 mg PO DAILY #90 tabs 05/01/25 08/03/25 Rx montelukast 10 mg tablet 10 mg PO QHS 05/01/25 08/03/25 History pregabalin 75 mg capsule 75 mg PO BID #180 caps 05/01/25 08/21/25 Rx lisinopril 20 mg tablet 20 mg PO BID #180 tabs 05/28/25 08/03/25 Rx acetaminophen 650 mg 650 mg PO PRN PRN pain 08/03/25 08/03/25 History tablet,extended release (8 Hour Pain Reliever) amlodipine 5 mg tablet 5 mg PO HS 08/03/25 08/03/25 History calcium polycarbophil 625 mg 625 mg PO DAILY 08/03/25 08/21/25 History tablet (FiberCon) celecoxib 100 mg capsule 100 mg PO DAILY 08/03/25 08/21/25 History cyclosporine 0.05 % eye drops in a 1 drp EACH EYE Q12H 08/03/25 08/03/25 History dropperette dextromethorphan-guaifenesin 30 1 tablet PO Q12H 08/03/25 08/03/25 History mg-600 mg tablet extended [id number] hr (Mucinex DM) diphenhydramine 25 1 tablet PO HS PRN sleep 08/03/25 08/03/25 History mg-acetaminophen 500 mg tablet (Night Time Pain Medicine) simethicone 180 mg capsule (Gas 180 mg PO DAILY PRN abdominal 08/03/25 08/03/25 History Relief (simethicone)) distention vit A 7,160 unit-vit C 113 mg-vit tablet PO DAILY 08/03/25 08/03/25 History E 100 oqkh-fsgq-diwond tablet buspirone 10 mg tablet See Rx Instructions .Route 08/10/25 08/21/25 Rx .COMPLEX #270 tabs aspirin 81 mg tablet,delayed 81 mg PO BID 14 days #28 tabs 08/21/25 Rx release oxycodone-acetaminophen 5 mg-325 1 - 2 tablet PO Q4-6H PRN pain 7 08/21/25 Rx mg tablet days #30 tabs Allergies Allergy/AdvReac Type Severity Reaction Status Date / Time prednisolone Allergy Severe raises Verified 08/21/25 12:24 blood pressure Vital Signs Vital Signs - 24 hr 08/21/25 17:39 08/21/25 20:00 08/21/25 20:30 Temperature 97.8 F Pulse Rate 82 98 Respiratory Rate 16 18 Blood Pressure 130/60 123/69 Pulse Oximetry 99 99 Oxygen Delivery Room Air 08/21/25 21:56 08/22/25 01:39 08/22/25 05:25 Temperature 97 F L 97.1 F L Pulse Rate 97 87 Respiratory Rate 16 16 Blood Pressure 128/70 118/59 L Pulse Oximetry 99 98 98 Oxygen Delivery Room Air 08/22/25 08:00 08/22/25 09:39 08/22/25 13:39 Temperature 97.5 F L 97.4 F L Pulse Rate 92 87 Respiratory Rate 16 16 Blood Pressure 110/67 104/73 Pulse Oximetry 97 98 Oxygen Delivery Room Air Exam Const: General: comfortable and no acute distress Other: , female, nontoxic appearance HENMT: Face/Nose/Sinus: Normal nares present Mouth: Yes moist mucous membranes Eyes: General: appearance normal, both eyes and all related structures Sclera: sclerae normal Pupils: Equal, round and reactive pupils present EOM: EOMs intact bilaterally Resp: Effort & Inspection: normal respiratory effort Auscultation: clear to auscultation bilaterally Cardio: Rate: regular rate Rhythm: regular rhythm Other: S1-S2 present without murmur, rub, ectopy GI: Other: Abdomen soft, nondistended, nontender. Normoactive bowel sounds in all quadrants. Skin: General skin exam: normal color and no rashes or lesions noted Other: Postoperative incision to anterior right shoulder. Dressing CDI. No hematoma. No appreciable crepitus. Moderate tenderness with palpation to the anterior aspect of her right shoulder. Neuro: Speech: normal speech Motor exam (neuro): 5/5 motor strength present throughout Sensory Exam: normal sensation Other: A&O x4 Extrem: General: normal exam except as noted Psych: Mental Status: mental status grossly normal Affect: normal affect Other: Good insight and judgment, very pleasant Results Labs 08/22/25 06:05 08/22/25 13:19 Labs: Short CBC 08/22/25 Range/Units 06:05 WBC 6.9 (4.5-10.0) K/mm3 Hgb 10.6 L D (12.0-15.0) g/dL Hct 32.4 L (37.0-47.0) % Plt Count 181 (150-375) k/mm3 BMP 08/22/25 08/22/25 06:05 13:19 Sodium 126 L 124 L Potassium 4.2 4.3 Chloride 95 L 94 L Carbon Dioxide 26 25 BUN 15 14 Creatinine 0.76 0.82 Glucose 76 91 Calcium 8.2 L 8.0 L Liver Function 08/22/25 Range/Units 13:19 Total Bilirubin 0.5 (0.2-1.3) mg/dL AST 35 (14-36) U/L ALT 17 (6-35) U/L Alkaline Phosphatase 80 (38-126) U/L Albumin 3.7 (3.5-5.1) g/dL Quality VTE Prophylaxis VTE prophylaxis: mechanical ordered Hospitalist MIPS Advance Care Plan I have confirmed that the patient's Advanced Care Plan is present, code status is documented, or surrogate decision maker is listed in patient medical record.: Yes Medication Reconciliation I have utilized all available resources to obtain, update and review the patients current medications (includes all prescriptions, OTC, herbals, cannabis, and nutritional supplements).: Yes
--- NOTE | 2025-08-22 16:00 | PM.CNNEP ---
Assessment and Plan Assessment and plan (1) Hyponatremia: Code(s): E87.1 - Hypo-osmolality and hyponatremia Status: Acute Assessment and Plan: acute on chronic baseline sodium runs around 133 - 137mmol/L intital labs on admission with a sodium of 126 repeat sodium down to 124 follow-up on testing ordered (serum/urine osmolality) urine electrolytes suggestive of prerenal azotemia continue trial of IVFs follow trend of repeat sodium levels (2) Status post reverse total arthroplasty of right shoulder: Onset Date: 08/21/25 Code(s): Z96.611 - Presence of right artificial shoulder joint Status: Acute Assessment and Plan: Orthopedics following routine post-operative care (3) Primary hypertension: Code(s): I10 - Essential (primary) hypertension Status: Chronic Assessment and Plan: reasonable control follow trend of hemodyanmics I will continue to follow the patient with you while ahe remains hospitalized and make further recommendations as deemed necessary. Thank you for allowing me to participate in the care of this patient. History of Present Illness Reason for Consult Consult date: 08/22/25 Reason for consult: hyponatremia Chief Complaint Chief complaint: Rt rot cuff arthrotomy History of Present Illness Narrative: The patient is a 70 year old female with a past medical history as outlined below that was admitted to the hospital following her right shoulder surgery. The patient has had chronic right shoulder pain for the past 2 years, had a fall and tore it but did not realize she had injured it for some time. Pain at baseline typically around 4-5/10 and worsened with active movement. Pain began limiting the patient in her daily activities and she had begun to use her left arm for certain tasks due to the pain. She was prescribed Celecoxib for her shoulder and Pregabalin for her residual neuropathic pain and due to prior shingles to her left upper extremity. Imaging has previously found a chronic massive, full-thickness rotator cuff tear with resultant superior humeral head migration and joint arthritic changes. Given these factors she elected to move forward with surgical management. She underwent a right reverse total shoulder arthroplasty on 08/21. Postoperatively she is reporting no significant pain, nausea, or vomiting. No dizziness, confusion, muscle weakness or headache. Following her surgical procedure, was noted by preoperative labs as well as postprocedure labs that she had evidence of hyponatremia. In spite of this electrolyte abnormality, she otherwise appears to be in no acute distress. Renal consultation was requested due to Hyponatremia. From review of her records, it would seem she has had some degree of chronic hyponatremia last 5 years. Her sodium level usually fluctuates anywhere from 133-137 millimoles per L. however, as already mentioned, her preoperative labs show sodium 126 and postprocedure her sodium dropped to 124. In spite of this electrolyte abnormality, she is otherwise asymptomatic from it and does not appear to have any neurological sequelae. She has been instituted on IV fluids in the form normal salin and although her sodium level has not worsened, it has not significantly improved. Currently, patient appears to be doing reasonably from a surgical perspective. [facility]LY [facility] Past Medical History Medical History Hyponatremia Scoliosis of cervical spine Macular degeneration HLD (hyperlipidemia) Primary hypertension History of shingles LUE with residual nerve damage Pain in lower extremity due to sciatica Anxiety Cervical spine pain Multilevel degenerative disc disease Surgical History Surgical History Status post reverse total arthroplasty of right shoulder (08/21/25) History of bilateral cataract extraction H/O eye surgery History of vitrectomy H/O colonoscopy Mcgee teeth extracted Family History Family History Father Hypertension Heart disease Mother Asthma Hypertension Heart disease Sibling Hypertension Heart disease Other Asthma Depression Other Diabetes mellitus Family history of chronic obstructive pulmonary disease Family history of coronary artery disease Social History Social History Smoking packs per day: 1 Smoking cigarettes per day: 20.0 Years smoked: 35 Smoking pack-years: 35.00 Smoking status: Former smoker Second hand tobacco smoke exposure: No Alcohol intake: current Drinks per week: 2 Alcohol use details: 1-2 glasses of wine per week Substance use: never Substance use type: does not use Lack of Transportation: No Lack of Food: Never True Current Housing: Decline to Answer Concerned About Future Housing: Decline to Answer Difficulty Paying Gas/Electric Bills: Decline to Answer Difficulty Paying for Meds: Decline to Answer Currently Unemployed: Decline to Answer Education: Bachelor's Degree Difficulty w/ Childcare or Family Care: Decline to Answer Living arrangements: with family Occupation/Education: retired Gender identity (if verbalized by the patient): Female Spiritual care concerns: No Meds Home Medications and Allergies Home Medications ?Medication ?Instructions ?Recorded ?Confirmed ?Type cetirizine 10 mg tablet (Zyrtec) 10 mg PO DAILY #30 tabs 09/11/21 09/03/25 Rx naproxen 375 mg tablet,delayed 375 mg PO PRN PRN pain 09/29/22 09/03/25 History release (EC-Naproxen) calcium 600 mg (as 1 cap PO DAILY 03/02/23 09/03/25 History carbonate)-vitamin D3 12.5 mcg (500 unit) capsule (Calcium with Vit D3) vit A 7,160 unit-vit C 113 mg-vit See Rx Instructions .Route .COMPLEX 03/02/23 09/03/25 History E 100 zgvs-aisa-qcmxrb tablet ezetimibe 10 mg tablet (Zetia) 10 mg PO DAILY #90 tabs 05/01/25 09/03/25 Rx montelukast 10 mg tablet 10 mg PO QHS 05/01/25 09/03/25 History pregabalin 75 mg capsule 75 mg PO BID #180 caps 05/01/25 09/03/25 Rx lisinopril 20 mg tablet 20 mg PO BID #180 tabs 05/28/25 09/03/25 Rx acetaminophen 650 mg 650 mg PO PRN PRN pain 08/03/25 09/03/25 History tablet,extended release (8 Hour Pain Reliever) amlodipine 5 mg tablet 5 mg PO HS 08/03/25 09/03/25 History calcium polycarbophil 625 mg 625 mg PO DAILY 08/03/25 09/03/25 History tablet (FiberCon) celecoxib 100 mg capsule 100 mg PO DAILY 08/03/25 09/03/25 History cyclosporine 0.05 % eye drops in a 1 drp EACH EYE Q12H 08/03/25 09/03/25 History dropperette dextromethorphan-guaifenesin 30 1 tablet PO Q12H 08/03/25 09/03/25 History mg-600 mg tablet extended [id number] hr (Mucinex DM) diphenhydramine 25 1 tablet PO HS PRN sleep 08/03/25 09/03/25 History mg-acetaminophen 500 mg tablet (Night Time Pain Medicine) simethicone 180 mg capsule (Gas 180 mg PO DAILY PRN abdominal 08/03/25 09/03/25 History Relief (simethicone)) distention vit A 7,160 unit-vit C 113 mg-vit tablet PO DAILY 08/03/25 09/03/25 History E 100 abzg-oclp-jveoio tablet buspirone 10 mg tablet See Rx Instructions .Route 08/10/25 09/03/25 Rx .COMPLEX #270 tabs aspirin 81 mg tablet,delayed 81 mg PO BID 14 days #28 tabs 08/21/25 09/03/25 Rx release cyclobenzaprine 10 mg tablet 10 mg PO TID #30 tabs 09/03/25 09/03/25 Rx Allergies Allergy/AdvReac Type Severity Reaction Status Date / Time prednisolone Allergy Severe raises Verified 09/03/25 09:40 blood pressure Vital Signs Vital Signs Temp Pulse Resp BP Pulse Ox O2 Del Method 08/22/25 13:39 97.4 F L 87 16 104/73 98 08/22/25 09:39 97.5 F L 92 16 110/67 97 08/22/25 08:00 Room Air 08/22/25 05:25 97.1 F L 87 16 118/59 L 98 08/22/25 01:39 97 F L 97 16 128/70 98 08/21/25 21:56 99 Room Air 08/21/25 20:30 98 18 123/69 99 08/21/25 20:00 Room Air 08/21/25 17:39 97.8 F 82 16 130/60 99 Exam Narrative: GENERAL APPEARANCE: well developed well nourished female in no acute distress HEENT: normocephalic, atraumatic, normal conjunctiva and sclera, nares patient NECK: no lymphadenopathy, thyromegaly, or JVD MOUTH: normal lips, teeth, and gums CARDIOVASCULAR: RRR, normal S1 and S2, no rub RESPIRATORY: clear to auscultation bilaterally ABDOMEN: soft, nontender, nondistended, positive bowel sounds present EXTREMITIES: no evidence of cyanosis, clubbing, or edema NEUROLOGICAL: alert and oriented x 3; CN II - XII intact bilaterally; no focal deficits noted Results Lab Results 08/24/25 06:07 08/24/25 06:07 Lab results: Most recent lab results Calcium 8.0 mg/dL (8.4-10.2) L 08/22/25 13:19 Urine Creatinine 22.1 mg/dL 08/22/25 16:48
[2025-08-22 17:17] LABS: Total Protein Urine Random 13 mg/dL; Ur Ttl Prot Creatinine Ratio 0.58 mg/mg (0-0.20)
[2025-08-22] MEDS: SODIUM CHLORIDE 0.9% IV 1,000 ML 100 ML IV CONT (17:22)
[2025-08-22 18:43] LABS: Anion Gap 7 mmol/L (4-12); Blood Urea Nitrogen 15 mg/dL (7-17); Calcium 8.2 mg/dL (8.4-10.2); Carbon Dioxide 22 mmol/L (22-30); Chloride 95 mmol/L (98-107); Estimated CRCL calculation 51 ml/min; Estimated Glomerular Filt Rate > 60; Glucose 101 mg/dL (65-110); Potassium 4.8 mmol/L (3.4-5.0); Sodium 124 mmol/L (137-145)
[2025-08-22 20:00] VITALS: PULSE 87; RESP 16; O2SAT 98
[2025-08-22] MEDS: oxyCODONE/ACETAMINOPHEN (*CRX) 10-325 MG TABLET 1 TAB PO (20:14)
[2025-08-22 20:41] LABS: Anion Gap 3 mmol/L (4-12); Blood Urea Nitrogen 16 mg/dL (7-17); Calcium 8.2 mg/dL (8.4-10.2); Carbon Dioxide 26 mmol/L (22-30); Chloride 95 mmol/L (98-107); Estimated CRCL calculation 50 ml/min; Estimated Glomerular Filt Rate > 60; Glucose 107 mg/dL (65-110); Potassium 4.4 mmol/L (3.4-5.0); Sodium 124 mmol/L (137-145)
[2025-08-22 21:06] VITALS: BP 120/55; PULSE 84; RESP 18; TEMP 36.1; O2SAT 96
[2025-08-23 00:06] LABS: Anion Gap 3 mmol/L (4-12); Blood Urea Nitrogen 15 mg/dL (7-17); Calcium 8.1 mg/dL (8.4-10.2); Carbon Dioxide 22 mmol/L (22-30); Chloride 100 mmol/L (98-107); Estimated CRCL calculation 59 ml/min; Estimated Glomerular Filt Rate > 60; Glucose 93 mg/dL (65-110); Potassium 4.6 mmol/L (3.4-5.0); Sodium 125 mmol/L (137-145)
[2025-08-23] MEDS: oxyCODONE/ACETAMINOPHEN (*CRX) 10-325 MG TABLET 1 TAB PO (03:06)
[2025-08-23] MEDS: SODIUM CHLORIDE 0.9% IV 1,000 ML 100 ML IV CONT ×2 (03:41→15:38)
[2025-08-23 03:56] VITALS: BP 132/74; PULSE 92; RESP 16; TEMP 36.8; O2SAT 95
[2025-08-23 06:04] LABS: Albumin Level 3.8 g/dL (3.5-5.1); Anion Gap 6 mmol/L (4-12); Blood Urea Nitrogen 12 mg/dL (7-17); Calcium 8.1 mg/dL (8.4-10.2); Carbon Dioxide 21 mmol/L (22-30); Chloride 102 mmol/L (98-107); Estimated CRCL calculation 66 ml/min; Estimated Glomerular Filt Rate > 60; Glucose 81 mg/dL (65-110); Potassium 4.3 mmol/L (3.4-5.0); Sodium 129 mmol/L (137-145)
[2025-08-23] MEDS: ACETAMINOPHEN 325 MG TABLET 650 MG PO ×4 (06:37→23:59)
--- NOTE | 2025-08-23 08:40 | P.PNIM_ITS ---
Progress Note: A&P Assessment and Plan (1) Hyponatremia: Code(s): E87.1 - Hypo-osmolality and hyponatremia Status: Acute Assessment and Plan: Improving sodium of 126, repeated this afternoon which was 124 despite the patient trying to drink Gatorade and chicken broth to increase her sodium levels. Previous lab work reviewed and patient has history of hyponatremia, however lowest recorded it was at 132 in 2022. Home medications reviewed, patient is on BuSpar t.i.d. p.r.n. which could be contributing. . - check serum osmolality, urine osmolality, urine sodium, protein/creatinine ratio, urine creatinine -IVF per Nephrology - neurologically intact, monitor - nephrology consulted (2) Status post reverse total arthroplasty of right shoulder: Onset Date: 08/22/25 Code(s): Z96.611 - Presence of right artificial shoulder joint Status: Acute Assessment and Plan: The patient had a reverse total shoulder arthroplasty of the right side on 08/[address] Mandel. - use IS - neurovasc checks - see order for intervals - SCDs - analgesics p.r.n. and antiemetics p.r.n. - monitor labs in AM - CBC and BMP - bowel regimen: docusate/senna, polyethylene glycol - PT/OT (3) Primary hypertension: Code(s): I10 - Essential (primary) hypertension Status: Chronic Assessment and Plan: - chronic, - continue home medications: Amlodipine 5 mg HS, lisinopril 20 mg b.i.d. - monitor (4) Anxiety: Code(s): F41.9 - Anxiety disorder, unspecified Status: Chronic Assessment and Plan: Stable. - hold BuSpar 10 mg t.i.d. p.r.n. as it could be causing hyponatremia Plan Diet: Regular GI Prophylaxis: Famotidine DVT Prophylaxis: SCDs Lines/Tubes: Peripheral IV Code Status: Full code Time Spent With Patient Time with patient: 25 - 35 minutes Subjective Date/time seen: 08/23/25 08:40 Interval history: Presented to the hospital for right rotator cuff surgery, Consulted by Orthopedics for medical management hyponatremia hypertension, anxiety Nephrology managing hyponatremia, slowly improving, patient denies symptoms Patient to drink Gatorade element free water. Educated on diet. Patient has no complaints Review of Systems Review of Systems: 12 systems were reviewed and are negativ e except for as per HPI. Exam Narrative: General: well appearing, appears stated age. HEENT: normocephalic, atraumatic. Mucous membranes moist. EOMI, PERRLA, bilateral sclera anicteric, no conjunctival injection. Neck supple without JVD, lymphadenopathy, or bruit. Respiratory: clear bilaterally. No rales/rhonic/wheezes. Cardiovascular: Regular rate and rhythm, normal S1-S2. No murmurs, rubs, or clicks. capillary refill less than 3 second. Abdomen: Soft, round, no pulsatile masses, nondistended and nontender. No rebound, no guarding. Bowel sounds present to all four quadrants. No high pitch or tinkling sounds, resonant to percussion. Extremities: No cyanosis, clubbing, or edema present. Pulses are palpable 2/2. Right upper extremity in sling limited range of motion due to sleeping Neuro: Alert and orientated x 4. PERRLA. Cranial nerves 2-12 intact without foc al deficit. Skin: Warm, dry, and intact, without rash, erythema, or lesion. Psych: pleasant, cooperative, normal speech, normal affect, no hallucinations, no dysarthia Objective Data Vital Signs Vital Signs: Vital Signs - 24 hr 08/22/25 09:39 08/22/25 13:39 08/22/25 20:00 Temperature 97.5 F L 97.4 F L Pulse Rate 92 87 87 Respiratory Rate 16 16 16 Blood Pressure 110/67 104/73 Pulse Oximetry 97 98 98 Oxygen Delivery Room Air 08/22/25 21:06 08/23/25 03:56 Temperature 97 F L 98.3 F Pulse Rate 84 92 Respiratory Rate 18 16 Blood Pressure 120/55 L 132/74 Pulse Oximetry 96 95 Oxygen Delivery Intake/Output Intake/Output: Intake & Output 08/20/25 08/21/25 08/22/25 08/23/25 23:59 23:59 23:59 23:59 Intake Total 1040 1320 1650 Balance 1040 1320 1650 Meds/Results Medications: Active Medications Generic Name Dose Route Start Last Admin Trade Name Freq PRN Reason Stop Dose Admin Acetaminophen 650 mg 08/21/25 12:00 08/23/25 06:37 Acetaminophen 325 Mg Tablet PO 650 mg Q6HR BARNEY Administration Amlodipine Besylate 5 mg 08/21/25 21:00 08/22/25 20:14 Amlodipine Besylate 5 Mg Tablet PO 5 mg HS BARNEY Administration Aspirin 81 mg 08/21/25 21:00 08/22/25 20:13 Aspirin 81 Mg Enteric Tablet PO 81 mg Q12HR BARNEY Administration Celecoxib 100 mg 08/21/25 14:00 08/22/25 09:18 Celecoxib 100 Mg Capsule PO 100 mg DAILY BARNEY Administration Cyclobenzaprine HCl 5 mg 08/21/25 11:54 08/22/25 06:45 Cyclobenzaprine Hcl 5 Mg Tablet PO 5 mg Q8H PRN Administration Spasms Cyclosporine 1 drop 08/21/25 21:00 08/22/25 20:14 Cyclosporine 0.4 Ml Ophth Solution EACH EYE 1 drop Q12H BARNEY Administration Diphenhydramine HCl 25 mg 08/21/25 11:54 Diphenhydramine Hcl Inj 50 Mg/Ml Vial IV PUSH Q6H PRN Itching Ezetimibe 10 mg 08/21/25 14:00 08/22/25 09:18 Ezetimibe 10 Mg Tablet PO 10 mg DAILY BARNEY Administration Famotidine 20 mg 08/21/25 14:00 08/22/25 20:14 Famotidine 20 Mg Tablet PO 20 mg Q12HR BARNEY Administration Hydromorphone HCl 1 mg 08/21/25 11:54 Hydromorphone Hcl Inj (*Crx) 1 Mg/Ml Syr IV PUSH Q2H PRN Breakthrough Pain Rated 7-10 or NPO Hydromorphone HCl 0.5 mg 08/21/25 11:54 Hydromorphone Hcl Inj (*Crx) 1 Mg/Ml Syr IV PUSH Q2H PRN Breakthrough Pain Rated 4-6 or NPO Sodium Chloride 1,000 mls @ 100 mls/hr 08/22/25 16:40 08/23/25 03:41 Normal Saline Iv IV CONT 100 mls/hr .Q10H BARNEY Administration Lisinopril 20 mg 08/21/25 17:00 08/22/25 16:21 Lisinopril 20 Mg Tablet PO 20 mg BID BARNEY Administration Loratadine 10 mg 08/21/25 14:00 08/22/25 09:19 Loratadine 10 Mg Tablet PO 10 mg QAM BARNEY Administration Naloxone HCl 0.1 mg 08/21/25 11:54 Naloxone Hcl 0.4 Mg/Ml Vial IV PUSH Q2M PRN Opiate Reversal Ondansetron HCl 4 mg 08/21/25 11:54 Ondansetron Inj 4 Mg/2 Ml Vial IV PUSH Q4H PRN Nausea And Vomiting Oxycodone/Acetaminophen 1 tablet 08/21/25 11:54 Oxycodone/Acetaminophen (*Crx) 5-325 Mg Tablet PO Q4H PRN Pain Rated 4-6 Oxycodone/Acetaminophen 1 tab 08/21/25 11:54 08/23/25 03:06 Oxycodone/Acetaminophen (*Crx) 10-325 Mg Tablet PO 1 tab Q6H PRN Administration Pain Rated 7-10 Polyethylene Glycol 17 gm 08/21/25 14:00 08/22/25 09:19 Polyethylene Glycol 3350 17 Gm Powd.Pack PO 17 gm QAM BARNEY Administration Pregabalin 75 mg 08/21/25 17:00 08/22/25 16:21 Pregabalin (*Crx) 75 Mg Capsule PO 75 mg BID BARNEY Administration Senna/Docusate Sodium 2 tab 08/21/25 21:00 08/22/25 20:14 Senna/Docusate Sodium Tablet PO 2 tab Q12HR BARNEY Administration Simethicone 125 mg 08/21/25 12:50 Simethicone 125 Mg Chew Tab PO QID PRN abdominal distention/gas Tramadol HCl 50 mg 08/21/25 11:54 Tramadol Hcl (*Crx) 50 Mg Tablet PO Q4H PRN Pain Rated 1-3 Radiology Results: ITS Impressions Shoulder X-Ray 08/21/25 10:51 Impression: No acute fracture or malalignment. Labs Labs: Laboratory Results - last 24 hr 08/22/25 08/22/25 08/22/25 13:19 16:46 16:48 Sodium 124 L Potassium 4.3 Chloride 94 L Carbon Dioxide 25 Anion Gap 5 BUN 14 Creatinine 0.82 Estim Creat Clear Calc 53 Estimated GFR > 60 Glucose 91 Calcium 8.0 L Phosphorus Total Bilirubin 0.5 AST 35 ALT 17 Alkaline Phosphatase 80 Total Protein 6.8 Albumin 3.7 Random Cortisol U Random Total Protein 13 Ur Random Sodium 16 Urine Creatinine 22.4 22.1 Protein/Creat Ratio 2 0.58 H 08/22/25 08/22/25 08/22/25 18:03 20:06 23:07 Sodium 124 L 124 L 125 L Potassium 4.8 4.4 4.6 Chloride 95 L 95 L 100 Carbon Dioxide 22 26 22 Anion Gap 7 3 L 3 L BUN 15 16 15 Creatinine 0.85 0.86 0.72 Estim Creat Clear Calc 51 50 59 Estimated GFR > 60 > 60 > 60 Glucose 101 107 93 Calcium 8.2 L 8.2 L 8.1 L Phosphorus Total Bilirubin AST ALT Alkaline Phosphatase Total Protein Albumin Random Cortisol U Random Total Protein Ur Random Sodium Urine Creatinine Protein/Creat Ratio 2 08/23/25 05:23 Sodium 129 L Potassium 4.3 Chloride 102 Carbon Dioxide 21 L Anion Gap 6 BUN 12 Creatinine 0.64 L Estim Creat Clear Calc 66 Estimated GFR > 60 Glucose 81 Calcium 8.1 L Phosphorus 3.3 Total Bilirubin AST ALT Alkaline Phosphatase Total Protein Albumin 3.8 Random Cortisol 1.33 U Random Total Protein Ur Random Sodium Urine Creatinine Protein/Creat Ratio 2 Quality VTE Prophylaxis VTE prophylaxis: mechanical ordered
[2025-08-23] MEDS: cycloSPORINE 0.4 ML OPHTH SOLUTION 1 DROP EACH EYE ×2 (09:09→20:31)
[2025-08-23] MEDS: CELECOXIB 100 MG CAPSULE PO (09:09)
[2025-08-23] MEDS: ASPIRIN 81 MG ENTERIC TABLET PO ×2 (09:09→20:31)
[2025-08-23] MEDS: LORATADINE 10 MG TABLET PO (09:09)
[2025-08-23] MEDS: FAMOTIDINE 20 MG TABLET PO ×2 (09:09→20:31)
[2025-08-23] MEDS: SENNA/DOCUSATE SODIUM TABLET 2 TAB PO ×2 (09:09→20:31)
[2025-08-23] MEDS: EZETIMIBE 10 MG TABLET PO (09:09)
[2025-08-23] MEDS: PREGABALIN (*CRX) 75 MG CAPSULE PO ×2 (09:09→17:16)
--- NOTE | 2025-08-23 11:47 | PC.NURSE ---
I, Karyn De La Torre RN, have reviewed documentation by Terri REYNOSO and agree with the findings.
[2025-08-23] MEDS: PHENOL/SOD PHENO SPRAY CHERRY (*BKC) 1 SPRAY MUCOUS MEM (12:25)
--- NOTE | 2025-08-23 13:24 | P.PNOP_ITS ---
Progress Note: A&P Assessment and Plan (1) Status post reverse total arthroplasty of right shoulder: Onset Date: 08/22/25 Code(s): Z96.611 - Presence of right artificial shoulder joint Status: Acute Plan Postop day 2: Reverse total shoulder arthroplasty. Patient tolerated procedure well. No complications. Patient did have a low sodium post op that decreased to 124 at the second check. Hospitalist and Nephrology consulted. Appreciate consultations. Patient's sodium has increased to 129 this morning. Patient continues to be Asymptomatic. She does state that she feels more tired and winded which could be from the anesthesia and surgery. Awaiting nephrology consult and hospitalist recommendations. Okay to discharge from orthopedic standpoint once she is medically stable. Subjective Subjective Date/Time Seen: 08/23/25 13:24 Interval history: Patient up and walking with therapy at the time of my visit. She notes she is getting winded easily. She states she is tired but denies CP, Dizzyness, Headache, pain. Notes her shoulder is doing good. Review of Systems Review of Systems: All systems reviewed & are unremarkable except as noted in HPI and below Exam Narrative: Normal weight Female. Walking the halls with therapy at the time of my visit. Wearing sling. Dressing dry and intact with no drainage. Mild swelling. Mild ecchymosis. No erythema. No hematoma. Range of motion limited due to pain. Calf nontender. Neurologic status intact. No varicosities. Distal pulses palpable. Axillary nerve fires. Objective Data Vital Signs Vital Signs: Vital Signs - 24 hr 08/22/25 13:39 08/22/25 20:00 08/22/25 21:06 Temperature 97.4 F L 97 F L Pulse Rate 87 87 84 Respiratory Rate 16 16 18 Blood Pressure 104/73 120/55 L Pulse Oximetry 98 98 96 Oxygen Delivery Room Air 08/23/25 03:56 08/23/25 08:00 Temperature 98.3 F Pulse Rate 92 Respiratory Rate 16 Blood Pressure 132/74 Pulse Oximetry 95 Oxygen Delivery Room Air Intake/Output Intake/Output: Intake & Output 08/20/25 08/21/25 08/22/25 08/23/25 23:59 23:59 23:59 23:59 Intake Total 1040 1320 1890 Balance 1040 1320 1890 Meds/Results Medications: Active Medications Generic Name Dose Route Start Last Admin Trade Name Freq PRN Reason Stop Dose Admin Acetaminophen 650 mg 08/21/25 12:00 08/23/25 12:25 Acetaminophen 325 Mg Tablet PO 650 mg Q6HR BARNEY Administration Amlodipine Besylate 5 mg 08/21/25 21:00 08/22/25 20:14 Amlodipine Besylate 5 Mg Tablet PO 5 mg HS BARNEY Administration Aspirin 81 mg 08/21/25 21:00 08/23/25 09:09 Aspirin 81 Mg Enteric Tablet PO 81 mg Q12HR BARNEY Administration Celecoxib 100 mg 08/21/25 14:00 08/23/25 09:09 Celecoxib 100 Mg Capsule PO 100 mg DAILY BARNEY Administration Cyclobenzaprine HCl 5 mg 08/21/25 11:54 08/22/25 06:45 Cyclobenzaprine Hcl 5 Mg Tablet PO 5 mg Q8H PRN Administration Spasms Cyclosporine 1 drop 08/21/25 21:00 08/23/25 09:09 Cyclosporine 0.4 Ml Ophth Solution EACH EYE 1 drop Q12H BARNEY Administration Diphenhydramine HCl 25 mg 08/21/25 11:54 Diphenhydramine Hcl Inj 50 Mg/Ml Vial IV PUSH Q6H PRN Itching Ezetimibe 10 mg 08/21/25 14:00 08/23/25 09:09 Ezetimibe 10 Mg Tablet PO 10 mg DAILY BARNEY Administration Famotidine 20 mg 08/21/25 14:00 08/23/25 09:09 Famotidine 20 Mg Tablet PO 20 mg Q12HR BARNEY Administration Hydromorphone HCl 1 mg 08/21/25 11:54 Hydromorphone Hcl Inj (*Crx) 1 Mg/Ml Syr IV PUSH Q2H PRN Breakthrough Pain Rated 7-10 or NPO Hydromorphone HCl 0.5 mg 08/21/25 11:54 Hydromorphone Hcl Inj (*Crx) 1 Mg/Ml Syr IV PUSH Q2H PRN Breakthrough Pain Rated 4-6 or NPO Sodium Chloride 1,000 mls @ 100 mls/hr 08/22/25 16:40 08/23/25 03:41 Normal Saline Iv IV CONT 100 mls/hr .Q10H BARNEY Administration Lisinopril 20 mg 08/21/25 17:00 08/23/25 09:09 Lisinopril 20 Mg Tablet PO 20 mg BID BARNEY Administration Loratadine 10 mg 08/21/25 14:00 08/23/25 09:09 Loratadine 10 Mg Tablet PO 10 mg QAM BARNEY Administration Naloxone HCl 0.1 mg 08/21/25 11:54 Naloxone Hcl 0.4 Mg/Ml Vial IV PUSH Q2M PRN Opiate Reversal Ondansetron HCl 4 mg 08/21/25 11:54 Ondansetron Inj 4 Mg/2 Ml Vial IV PUSH Q4H PRN Nausea And Vomiting Oxycodone/Acetaminophen 1 tablet 08/21/25 11:54 Oxycodone/Acetaminophen (*Crx) 5-325 Mg Tablet PO Q4H PRN Pain Rated 4-6 Oxycodone/Acetaminophen 1 tab 08/21/25 11:54 08/23/25 03:06 Oxycodone/Acetaminophen (*Crx) 10-325 Mg Tablet PO 1 tab Q6H PRN Administration Pain Rated 7-10 Phenol 1 spray 08/23/25 12:00 08/23/25 12:25 Phenol/Sod Pheno [place] (*Bkc) MUCOUS MEM 1 spray PRN PRN Administration Sore Throat Polyethylene Glycol 17 gm 08/21/25 14:00 08/23/25 09:08 Polyethylene Glycol 3350 17 Gm Powd.Pack PO 17 gm QAM BARNEY Administration Pregabalin 75 mg 08/21/25 17:00 08/23/25 09:09 Pregabalin (*Crx) 75 Mg Capsule PO 75 mg BID BARNEY Administration Senna/Docusate Sodium 2 tab 08/21/25 21:00 08/23/25 09:09 Senna/Docusate Sodium Tablet PO 2 tab Q12HR BARNEY Administration Simethicone 125 mg 08/21/25 12:50 Simethicone 125 Mg Chew Tab PO QID PRN abdominal distention/gas Tramadol HCl 50 mg 08/21/25 11:54 Tramadol Hcl (*Crx) 50 Mg Tablet PO Q4H PRN Pain Rated 1-3 Radiology Results: ITS Impressions Shoulder X-Ray 08/21/25 10:51 Impression: No acute fracture or malalignment. Labs Labs: Laboratory Results - last 24 hr 08/22/25 08/22/25 08/22/25 13:19 16:46 16:48 Sodium 124 L Potassium 4.3 Chloride 94 L Carbon Dioxide 25 Anion Gap 5 BUN 14 Creatinine 0.82 Estim Creat Clear Calc 53 Estimated GFR > 60 Glucose 91 Calcium 8.0 L Phosphorus Total Bilirubin 0.5 AST 35 ALT 17 Alkaline Phosphatase 80 Total Protein 6.8 Albumin 3.7 Random Cortisol U Random Total Protein 13 Ur Random Sodium 16 Urine Creatinine 22.4 22.1 Protein/Creat Ratio 2 0.58 H 08/22/25 08/22/25 08/22/25 18:03 20:06 23:07 Sodium 124 L 124 L 125 L Potassium 4.8 4.4 4.6 Chloride 95 L 95 L 100 Carbon Dioxide 22 26 22 Anion Gap 7 3 L 3 L BUN 15 16 15 Creatinine 0.85 0.86 0.72 Estim Creat Clear Calc 51 50 59 Estimated GFR > 60 > 60 > 60 Glucose 101 107 93 Calcium 8.2 L 8.2 L 8.1 L Phosphorus Total Bilirubin AST ALT Alkaline Phosphatase Total Protein Albumin Random Cortisol U Random Total Protein Ur Random Sodium Urine Creatinine Protein/Creat Ratio 2 08/23/25 05:23 Sodium 129 L Potassium 4.3 Chloride 102 Carbon Dioxide 21 L Anion Gap 6 BUN 12 Creatinine 0.64 L Estim Creat Clear Calc 66 Estimated GFR > 60 Glucose 81 Calcium 8.1 L Phosphorus 3.3 Total Bilirubin AST ALT Alkaline Phosphatase Total Protein Albumin 3.8 Random Cortisol 1.33 U Random Total Protein Ur Random Sodium Urine Creatinine Protein/Creat Ratio 2
--- NOTE | 2025-08-23 13:49 | P.PNNP_ITS ---
Progress Note: A&P Assessment and Plan (1) Hyponatremia: Code(s): E87.1 - Hypo-osmolality and hyponatremia Status: Acute Assessment and Plan: * slow improvement noted * acute on chronic * baseline sodium runs around 133 - 137mmol/L * intital labs on admission with a sodium of 126 * repeat sodium down to 124 * urine electrolytes suggestive of prerenal azotemia * serum/urine osmolality pending * on normal saline IVFs * follow trend of repeat sodium levels (2) Status post reverse total arthroplasty of right shoulder: Onset Date: 08/21/25 Code(s): Z96.611 - Presence of right artificial shoulder joint Status: Acute Assessment and Plan: * Orthopedics following * routine post-operative care (3) Primary hypertension: Code(s): I10 - Essential (primary) hypertension Status: Chronic Assessment and Plan: * reasonable control * follow trend of hemodyanmics Will continue to follow. Subjective Date/time seen: 08/23/25 13:49 Interval history: Follow-up for acute on chronic hyponatremia. No apparent distress noted at the time of my visit; feels reasonably well when seen; eating and drinking okay; pain control appears stable; sodium improving with current therapy/interventions. Exam Narrative: General: WD/WN female in NAD Heart: normal S1 and S2; no rub Lungs: clear to auscultation Abdomen: soft, nontender, nondistended, positive bowel sounds Extremities: no cyanosis or clubbing; no edema Skin: warm and dry Objective Data Vital Signs Vital Signs: Vital Signs Temp Pulse Resp BP Pulse Ox O2 Del Method 08/23/25 08:00 Room Air 08/23/25 03:56 98.3 F 92 16 132/74 95 08/22/25 21:06 97 F L 84 18 120/55 L 96 08/22/25 20:00 87 16 98 Room Air Intake/Output Intake/Output: Intake & Output 08/20/25 08/21/25 08/22/2520/25 23:59 23:59 23:59 23:59 Intake Total 1040 1320 3370 Balance 1040 1320 3370 Meds/Results Medications: Active Medications Generic Name Dose Route Start Last Admin Trade Name Freq PRN Reason Stop Dose Admin Acetaminophen 650 mg 08/21/25 12:00 08/23/25 17:16 Acetaminophen 325 Mg Tablet PO 650 mg Q6HR BARNEY Administration Amlodipine Besylate 5 mg 08/21/25 21:00 08/22/25 20:14 Amlodipine Besylate 5 Mg Tablet PO 5 mg HS BARNEY Administration Aspirin 81 mg 08/21/25 21:00 08/23/25 09:09 Aspirin 81 Mg Enteric Tablet PO 81 mg Q12HR BARNEY Administration Celecoxib 100 mg 08/21/25 14:00 08/23/25 09:09 Celecoxib 100 Mg Capsule PO 100 mg DAILY BARNEY Administration Cyclobenzaprine HCl 5 mg 08/21/25 11:54 08/22/25 06:45 Cyclobenzaprine Hcl 5 Mg Tablet PO 5 mg Q8H PRN Administration Spasms Cyclosporine 1 drop 08/21/25 21:00 08/23/25 09:09 Cyclosporine 0.4 Ml Ophth Solution EACH EYE 1 drop Q12H BARNEY Administration Diphenhydramine HCl 25 mg 08/21/25 11:54 Diphenhydramine Hcl Inj 50 Mg/Ml Vial IV PUSH Q6H PRN Itching Ezetimibe 10 mg 08/21/25 14:00 08/23/25 09:09 Ezetimibe 10 Mg Tablet PO 10 mg DAILY BARNEY Administration Famotidine 20 mg 08/21/25 14:00 08/23/25 09:09 Famotidine 20 Mg Tablet PO 20 mg Q12HR BARNEY Administration Hydromorphone HCl 1 mg 08/21/25 11:54 Hydromorphone Hcl Inj (*Crx) 1 Mg/Ml Syr IV PUSH Q2H PRN Breakthrough Pain Rated 7-10 or NPO Hydromorphone HCl 0.5 mg 08/21/25 11:54 Hydromorphone Hcl Inj (*Crx) 1 Mg/Ml Syr IV PUSH Q2H PRN Breakthrough Pain Rated 4-6 or NPO Sodium Chloride 1,000 mls @ 100 mls/hr 08/22/25 16:40 08/23/25 15:38 Normal Saline Iv IV CONT 100 mls/hr .Q10H BARNEY Administration Lisinopril 20 mg 08/21/25 17:00 08/23/25 17:15 Lisinopril 20 Mg Tablet PO 20 mg BID BARNEY Administration Loratadine 10 mg 08/21/25 14:00 08/23/25 09:09 Loratadine 10 Mg Tablet PO 10 mg QAM BARNEY Administration Naloxone HCl 0.1 mg 08/21/25 11:54 Naloxone Hcl 0.4 Mg/Ml Vial IV PUSH Q2M PRN Opiate Reversal Ondansetron HCl 4 mg 08/21/25 11:54 Ondansetron Inj 4 Mg/2 Ml Vial IV PUSH Q4H PRN Nausea And Vomiting Oxycodone/Acetaminophen 1 tablet 08/21/25 11:54 Oxycodone/Acetaminophen (*Crx) 5-325 Mg Tablet PO Q4H PRN Pain Rated 4-6 Oxycodone/Acetaminophen 1 tab 08/21/25 11:54 08/23/25 03:06 Oxycodone/Acetaminophen (*Crx) 10-325 Mg Tablet PO 1 tab Q6H PRN Administration Pain Rated 7-10 Phenol 1 spray 08/23/25 12:00 08/23/25 12:25 Phenol/Sod Pheno [place] Mercedes (*Bkc) MUCOUS MEM 1 spray PRN PRN Administration Sore Throat Polyethylene Glycol 17 gm 08/21/25 14:00 08/23/25 09:08 Polyethylene Glycol 3350 17 Gm Powd.Pack PO 17 gm QAM BARNEY Administration Pregabalin 75 mg 08/21/25 17:00 08/23/25 17:16 Pregabalin (*Crx) 75 Mg Capsule PO 75 mg BID BARNEY Administration Senna/Docusate Sodium 2 tab 08/21/25 21:00 08/23/25 09:09 Senna/Docusate Sodium Tablet PO 2 tab Q12HR BARNEY Administration Simethicone 125 mg 08/21/25 12:50 Simethicone 125 Mg Chew Tab PO QID PRN abdominal distention/gas Tramadol HCl 50 mg 08/21/25 11:54 Tramadol Hcl (*Crx) 50 Mg Tablet PO Q4H PRN Pain Rated 1-3 Radiology Results: ITS Impressions Shoulder X-Ray 08/21/25 10:51 Impression: No acute fracture or malalignment. Labs Labs: Laboratory Results - last 24 hr 08/22/25 08/22/25 08/23/25 20:06 23:07 05:23 Sodium 124 L 125 L 129 L Potassium 4.4 4.6 4.3 Chloride 95 L 100 102 Carbon Dioxide 26 22 21 L Anion Gap 3 L 3 L 6 BUN 16 15 12 Creatinine 0.86 0.72 0.64 L Estim Creat Clear Calc 50 59 66 Estimated GFR > 60 > 60 > 60 Glucose 107 93 81 Calcium 8.2 L 8.1 L 8.1 L Phosphorus 3.3 Albumin 3.8 TSH (Reflex) Random Cortisol 1.33
[2025-08-23 17:17] LABS: Sodium 130 mmol/L (137-145)
[2025-08-23 17:50] LABS: Thyroid Stimulating Hormone Reflex 0.846 uIU/mL (0.465-4.68)
[2025-08-23] MEDS: CYCLOBENZAPRINE HCL 5 MG TABLET PO (20:31)
[2025-08-23 22:37] VITALS: BP 139/79; PULSE 101; RESP 18; TEMP 36.3; O2SAT 96
[2025-08-24] MEDS: SODIUM CHLORIDE 0.9% IV 1,000 ML 100 ML IV CONT (02:09)
[2025-08-24 04:43] VITALS: BP 142/81; PULSE 110; RESP 18; TEMP 36.3; O2SAT 97
[2025-08-24] MEDS: ACETAMINOPHEN 325 MG TABLET 650 MG PO (05:49)
[2025-08-24 06:47] LABS: Hematocrit 36.7 % (37.0-47.0); Hemoglobin 11.8 g/dL (12.0-15.0); Mean Corpuscular HGB Conc 32.2 g/dl (32-36); Mean Corpuscular Hemoglobin 29.6 pg (26-34); Mean Corpuscular Volume 92.0 fl (80-100); Platelet Count Result 190 k/mm3 (150-375); Red Blood Count 3.99 M/mm3 (4.2-5.4); White Blood Count 4.5 K/mm3 (4.5-10.0)
[2025-08-24 07:14] LABS: Anion Gap 6 mmol/L (4-12); Blood Urea Nitrogen 9 mg/dL (7-17); Calcium 8.4 mg/dL (8.4-10.2); Carbon Dioxide 24 mmol/L (22-30); Chloride 101 mmol/L (98-107); Estimated CRCL calculation 72 ml/min; Estimated Glomerular Filt Rate > 60; Glucose 86 mg/dL (65-110); Potassium 4.3 mmol/L (3.4-5.0); Sodium 131 mmol/L (137-145)
--- NOTE | 2025-08-24 08:48 | P.PNIM_ITS ---
Progress Note: A&P Assessment and Plan (1) Hyponatremia: Code(s): E87.1 - Hypo-osmolality and hyponatremia Status: Acute Assessment and Plan: Improving sodium of 126, repeated this afternoon which was 124 despite the patient trying to drink Gatorade and chicken broth to increase her sodium levels. Previous lab work reviewed and patient has history of hyponatremia, however lowest recorded it was at 132 in 2022. Home medications reviewed, patient is on BuSpar t.i.d. p.r.n. which could be contributing. . - check serum osmolality, urine osmolality, urine sodium, protein/creatinine ratio, urine creatinine -IVF per Nephrology - neurologically intact, monitor - nephrology consulted Follow-up in 2 weeks with PCP for BMP (2) Status post reverse total arthroplasty of right shoulder: Onset Date: 08/22/25 Code(s): Z96.611 - Presence of right artificial shoulder joint Status: Acute Assessment and Plan: The patient had a reverse total shoulder arthroplasty of the right side on 08/[address] Mandel. - use IS - neurovasc checks - see order for intervals - SCDs - analgesics p.r.n. and antiemetics p.r.n. - monitor labs in AM - CBC and BMP - bowel regimen: docusate/senna, polyethylene glycol - PT/OT (3) Primary hypertension: Code(s): I10 - Essential (primary) hypertension Status: Chronic Assessment and Plan: - chronic, - continue home medications: Amlodipine 5 mg HS, lisinopril 20 mg b.i.d. - monitor (4) Anxiety: Code(s): F41.9 - Anxiety disorder, unspecified Status: Chronic Assessment and Plan: Stable. - hold BuSpar 10 mg t.i.d. p.r.n. as it could be causing hyponatremia Plan Diet: Regular GI Prophylaxis: Famotidine DVT Prophylaxis: SCDs Lines/Tubes: Peripheral IV Code Status: Full code Subjective Date/time seen: 08/24/25 08:48 Interval history: Presented to the hospital for right rotator cuff surgery, Consulted by Orthopedics for medical management hyponatremia hypertension, anxiety Nephrology managing hyponatremia, slowly improving, patient denies symptoms Patient to drink Gatorade element free water. Educated on diet. Patient has no complaints Sodium is back to patient's baseline she is okay for discharge Follow-up with PCP in 2 weeks for BMP Review of Systems Review of Systems: 12 systems were reviewed and are negativ e except for as per HPI. Exam Narrative: General: well appearing, appears stated age. HEENT: normocephalic, atraumatic. Mucous membranes moist. EOMI, PERRLA, bilateral sclera anicteric, no conjunctival injection. Neck supple without JVD, lymphadenopathy, or bruit. Respiratory: clear bilaterally. No rales/rhonic/wheezes. Cardiovascular: Regular rate and rhythm, normal S1-S2. No murmurs, rubs, or clicks. capillary refill less than 3 second. Abdomen: Soft, round, no pulsatile masses, nondistended and nontender. No rebound, no guarding. Bowel sounds present to all four quadrants. No high pitch or tinkling sounds, resonant to percussion. Extremities: No cyanosis, clubbing, or edema present. Pulses are palpable 2/2. Right upper extremity in sling limited range of motion due to sleeping Neuro: Alert and orientated x 4. PERRLA. Cranial nerves 2-12 intact without focal deficit. Skin: Warm, dry, and intact, without rash, erythema, or lesion. Psych: pleasant, cooperative, normal speech, normal affect, no hallucinations, no dysarthia Objective Data Vital Signs Vital Signs: Vital Signs - 24 hr 08/23/25 20:32 08/23/25 22:37 08/24/25 04:43 Temperature 97.3 F L 97.3 F L Pulse Rate 101 H 110 H Respiratory Rate 18 18 Blood Pressure 139/79 142/81 H Pulse Oximetry 96 97 Oxygen Delivery Room Air Intake/Output Intake/Output: Intake & Output 08/21/25 08/22/25 08/23/25 08/24/25 23:59 23:59 23:59 23:59 Intake Total 1040 1320 3370 1300 Balance 1040 1320 3370 1300 Meds/Results Medications: Active Medications Generic Name Dose Route Start Last Admin Trade Name Freq PRN Reason Stop Dose Admin Acetaminophen 650 mg 08/21/25 12:00 08/24/25 05:49 Acetaminophen 325 Mg Tablet PO 650 mg Q6HR BARNEY Administration Amlodipine Besylate 5 mg 08/21/25 21:00 08/23/25 20:31 Amlodipine Besylate 5 Mg Tablet PO 5 mg HS BARNEY Administration Aspirin 81 mg 08/21/25 21:00 08/23/25 20:31 Aspirin 81 Mg Enteric Tablet PO 81 mg Q12HR BARNEY Administration Celecoxib 100 mg 08/21/25 14:00 08/23/25 09:09 Celecoxib 100 Mg Capsule PO 100 mg DAILY BARNEY Administration Cyclobenzaprine HCl 5 mg 08/21/25 11:54 08/23/25 20:31 Cyclobenzaprine Hcl 5 Mg Tablet PO 5 mg Q8H PRN Administration Spasms Cyclosporine 1 drop 08/21/25 21:00 08/23/25 20:31 Cyclosporine 0.4 Ml Ophth Solution EACH EYE 1 drop Q12H BARNEY Administration Diphenhydramine HCl 25 mg 08/21/25 11:54 Diphenhydramine Hcl Inj 50 Mg/Ml Vial IV PUSH Q6H PRN Itching Ezetimibe 10 mg 08/21/25 14:00 08/23/25 09:09 Ezetimibe 10 Mg Tablet PO 10 mg DAILY BARNEY Administration Famotidine 20 mg 08/21/25 14:00 08/23/25 20:31 Famotidine 20 Mg Tablet PO 20 mg Q12HR BARNEY Administration Hydromorphone HCl 1 mg 08/21/25 11:54 Hydromorphone Hcl Inj (*Crx) 1 Mg/Ml Syr IV PUSH Q2H PRN Breakthrough Pain Rated 7-10 or NPO Hydromorphone HCl 0.5 mg 08/21/25 11:54 Hydromorphone Hcl Inj (*Crx) 1 Mg/Ml Syr IV PUSH Q2H PRN Breakthrough Pain Rated 4-6 or NPO Sodium Chloride 1,000 mls @ 100 mls/hr 08/22/25 16:40 08/24/25 02:09 Normal Saline Iv IV CONT 100 mls/hr .Q10H BARNEY Administration Lisinopril 20 mg 08/21/25 17:00 08/23/25 17:15 Lisinopril 20 Mg Tablet PO 20 mg BID BARNEY Administration Loratadine 10 mg 08/21/25 14:00 08/23/25 09:09 Loratadine 10 Mg Tablet PO 10 mg QAM BARNEY Administration Naloxone HCl 0.1 mg 08/21/25 11:54 Naloxone Hcl 0.4 Mg/Ml Vial IV PUSH Q2M PRN Opiate Reversal Ondansetron HCl 4 mg 08/21/25 11:54 Ondansetron Inj 4 Mg/2 Ml Vial IV PUSH Q4H PRN Nausea And Vomiting Oxycodone/Acetaminophen 1 tablet 08/21/25 11:54 Oxycodone/Acetaminophen (*Crx) 5-325 Mg Tablet PO Q4H PRN Pain Rated 4-6 Oxycodone/Acetaminophen 1 tab 08/21/25 11:54 08/23/25 03:06 Oxycodone/Acetaminophen (*Crx) 10-325 Mg Tablet PO 1 tab Q6H PRN Administration Pain Rated 7-10 Phenol 1 spray 08/23/25 12:00 08/23/25 12:25 Phenol/Sod Pheno [place] Mercedes (*Bkc) MUCOUS MEM 1 spray PRN PRN Administration Sore Throat Polyethylene Glycol 17 gm 08/21/25 14:00 08/23/25 09:08 Polyethylene Glycol 3350 17 Gm Powd.Pack PO 17 gm QAM BARNEY Administration Pregabalin 75 mg 08/21/25 17:00 08/23/25 17:16 Pregabalin (*Crx) 75 Mg Capsule PO 75 mg BID BARNEY Administration Senna/Docusate Sodium 2 tab 08/21/25 21:00 08/23/25 20:31 Senna/Docusate Sodium Tablet PO 2 tab Q12HR BARNEY Administration Simethicone 125 mg 08/21/25 12:50 Simethicone 125 Mg Chew Tab PO QID PRN abdominal distention/gas Tramadol HCl 50 mg 08/21/25 11:54 Tramadol Hcl (*Crx) 50 Mg Tablet PO Q4H PRN Pain Rated 1-3 Radiology Results: ITS Impressions Shoulder X-Ray 08/21/25 10:51 Impression: No acute fracture or malalignment. Labs Labs: Laboratory Results - last 24 hr 08/23/25 08/24/25 16:57 06:07 WBC 4.5 RBC 3.99 L Hgb 11.8 L Hct 36.7 L MCV 92.0 MCH 29.6 MCHC 32.2 RDW 13.2 Plt Count 190 MPV 9.6 Sodium 130 L 131 L Potassium 4.3 Chloride 101 Carbon Dioxide 24 Anion Gap 6 BUN 9 Creatinine 0.58 L Estim Creat Clear Calc 72 Estimated GFR > 60 Glucose 86 Calcium 8.4 TSH (Reflex) 0.846 Quality VTE Prophylaxis VTE prophylaxis: mechanical ordered
[2025-08-24] MEDS: EZETIMIBE 10 MG TABLET PO (09:03)
[2025-08-24] MEDS: LORATADINE 10 MG TABLET PO (09:03)
[2025-08-24] MEDS: cycloSPORINE 0.4 ML OPHTH SOLUTION 1 DROP EACH EYE (09:03)
[2025-08-24] MEDS: ASPIRIN 81 MG ENTERIC TABLET PO (09:04)
[2025-08-24] MEDS: FAMOTIDINE 20 MG TABLET PO (09:04)
[2025-08-24] MEDS: PREGABALIN (*CRX) 75 MG CAPSULE PO (09:04)
[2025-08-24] MEDS: CELECOXIB 100 MG CAPSULE PO (09:05)
--- NOTE | 2025-08-24 10:00 | P.PNNP_ITS ---
Progress Note: A&P Assessment and Plan (1) Hyponatremia: Code(s): E87.1 - Hypo-osmolality and hyponatremia Status: Acute Assessment and Plan: * slow improvement noted * acute on chronic * baseline sodium runs around 133 - 137mmol/L * intital labs on admission with a sodium of 126 * repeat sodium down to 124 * urine electrolytes suggestive of prerenal azotemia * serum/urine osmolality pending * on normal saline IVFs * follow trend of repeat sodium levels (2) Status post reverse total arthroplasty of right shoulder: Onset Date: 08/21/25 Code(s): Z96.611 - Presence of right artificial shoulder joint Status: Acute Assessment and Plan: * Orthopedics following * routine post-operative care (3) Primary hypertension: Code(s): I10 - Essential (primary) hypertension Status: Chronic Assessment and Plan: * reasonable control * follow trend of hemodyanmics Will continue to follow. L Subjective Date/time seen: 08/24/25 10:00 Interval history: Follow-up for acute on chronic hyponatremia. Sodium level continues to improve with current therapy/interventions; overall, she feels quite well; she is hoping for possible discharge today. Exam 2 Narrative: General: WD/WN female in NAD Heart: normal S1 and S2; no rub Lungs: clear to auscultation Abdomen: soft, nontender, nondistended, positive bowel sounds Extremities: no cyanosis or clubbing; no edema Skin: warm and intact Objective Data Vital Signs Vital Signs: Vital Signs Temp Pulse Resp BP Pulse Ox O2 Del Method 08/24/25 08:00 Room Air 08/24/25 04:43 97.3 F L 110 H 18 142/81 H 97 08/23/25 22:37 97.3 F L 101 H 18 139/79 96 08/23/25 20:32 Room Air Intake/Output Intake/Output: Intake & Output 08/21/25 08/22/25 08/23/25 08/24/25 23:59 23:59 23:59 23:59 Intake Total 1040 1320 3370 1940 Balance 1040 1320 3370 1940 Meds/Results Medications: Active Medications Generic Name Dose Route Start Last Admin Trade Name Freq PRN Reason Stop Dose Admin Acetaminophen 650 mg 08/21/25 12:00 08/24/25 05:49 Acetaminophen 325 Mg Tablet PO 650 mg Q6HR BARNEY Administration Amlodipine Besylate 5 mg 08/21/25 21:00 08/23/25 20:31 Amlodipine Besylate 5 Mg Tablet PO 5 mg HS BARNEY Administration Aspirin 81 mg 08/21/25 21:00 08/24/25 09:04 Aspirin 81 Mg Enteric Tablet PO 81 mg Q12HR BARNEY Administration Celecoxib 100 mg 08/21/25 14:00 08/24/25 09:05 Celecoxib 100 Mg Capsule PO 100 mg DAILY BARNEY Administration Cyclobenzaprine HCl 5 mg 08/21/25 11:54 08/23/25 20:31 Cyclobenzaprine Hcl 5 Mg Tablet PO 5 mg Q8H PRN Administration Spasms Cyclosporine 1 drop 08/21/25 21:00 08/24/25 09:03 Cyclosporine 0.4 Ml Ophth Solution EACH EYE 1 drop Q12H BARNEY Administration Diphenhydramine HCl 25 mg 08/21/25 11:54 Diphenhydramine Hcl Inj 50 Mg/Ml Vial IV PUSH Q6H PRN Itching Ezetimibe 10 mg 08/21/25 14:00 08/24/25 09:03 Ezetimibe 10 Mg Tablet PO 10 mg DAILY BARNEY Administration Famotidine 20 mg 08/21/25 14:00 08/24/25 09:04 Famotidine 20 Mg Tablet PO 20 mg Q12HR BARNEY Administration Hydromorphone HCl 1 mg 08/21/25 11:54 Hydromorphone Hcl Inj (*Crx) 1 Mg/Ml Syr IV PUSH Q2H PRN Breakthrough Pain Rated 7-10 or NPO Hydromorphone HCl 0.5 mg 08/21/25 11:54 Hydromorphone Hcl Inj (*Crx) 1 Mg/Ml Syr IV PUSH Q2H PRN Breakthrough Pain Rated 4-6 or NPO Lisinopril 20 mg 08/21/25 17:00 08/24/25 09:03 Lisinopril 20 Mg Tablet PO 20 mg BID BARNEY Administration Loratadine 10 mg 08/21/25 14:00 08/24/25 09:03 Loratadine 10 Mg Tablet PO 10 mg QAM BARNEY Administration Naloxone HCl 0.1 mg 08/21/25 11:54 Naloxone Hcl 0.4 Mg/Ml Vial IV PUSH Q2M PRN Opiate Reversal Ondansetron HCl 4 mg 08/21/25 11:54 Ondansetron Inj 4 Mg/2 Ml Vial IV PUSH Q4H PRN Nausea And Vomiting Oxycodone/Acetaminophen 1 tablet 08/21/25 11:54 Oxycodone/Acetaminophen (*Crx) 5-325 Mg Tablet PO Q4H PRN Pain Rated 4-6 Oxycodone/Acetaminophen 1 tab 08/21/25 11:54 08/23/25 03:06 Oxycodone/Acetaminophen (*Crx) 10-325 Mg Tablet PO 1 tab Q6H PRN Administration Pain Rated 7-10 Phenol 1 spray 08/23/25 12:00 08/23/25 12:25 Phenol/Sod Pheno [place] Mercedes (*Bkc) MUCOUS MEM 1 spray PRN PRN Administration Sore Throat Polyethylene Glycol 17 gm 08/21/25 14:00 08/24/25 09:16 Polyethylene Glycol 3350 17 Gm Powd.Pack PO Not Given QAM BARNEY Pregabalin 75 mg 08/21/25 17:00 08/24/25 09:04 Pregabalin (*Crx) 75 Mg Capsule PO 75 mg BID BARNEY Administration Senna/Docusate Sodium 2 tab 08/21/25 21:00 08/24/25 09:15 Senna/Docusate Sodium Tablet PO Not Given Q12HR BARNEY Simethicone 125 mg 08/21/25 12:50 Simethicone 125 Mg Chew Tab PO QID PRN abdominal distention/gas Tramadol HCl 50 mg 08/21/25 11:54 Tramadol Hcl (*Crx) 50 Mg Tablet PO Q4H PRN Pain Rated 1-3 Radiology Results: ITS Impressions Shoulder X-Ray 08/21/25 10:51 Impression: No acute fracture or malalignment. Labs Labs: Laboratory Tests 08/24/25 06:07 08/24/25 06:07
--- NOTE | 2025-08-24 10:36 | P.PNOP_ITS ---
Progress Note: A&P Assessment and Plan (1) Status post reverse total arthroplasty of right shoulder: Onset Date: 08/22/25 Code(s): Z96.611 - Presence of right artificial shoulder joint Status: Acute Plan Postop day 3: Reverse total shoulder arthroplasty. Patient tolerated procedure well. No complications. Patient did have a low sodium post op that decreased to 124 at the second check. Back up to 131 today. Hospitalist and Nephrology consulted. Appreciate consultations. Patient continues to be Asymptomatic. She states she feels good today. Awaiting nephrology consult and hospitalist recommendations. Okay to discharge from orthopedic standpoint once she is medically stable. We had a lengthy discussion regarding postoperative wound care, limitations, expectations, and exercises. Patient shows good understanding. She has had initial physical therapy and is tolerating it well. Patient has followup appointment with Dr. Mandel in 3 weeks. Subjective Subjective Date/Time Seen: 08/24/25 10:36 Interval history: Patient resting comfortably in bed. Pain controlled. She states she feels great. No complaints. Review of Systems Review of Systems: All systems reviewed & are unremarkable except as noted in HPI and below Exam Narrative: Normal weight Female. Walking the halls with therapy at the time of my visit. Wearing sling. Dressing dry and intact with no drainage. Mild swelling. Mild ecchymosis. No erythema. No hematoma. Range of motion limited due to pain. Calf nontender. Neurologic status intact. No varicosities. Distal pulses palpable. Axillary nerve fires. Objective Data Vital Signs Vital Signs: Vital Signs - 24 hr 08/23/25 20:32 08/23/25 22:37 08/24/25 04:43 Temperature 97.3 F L 97.3 F L Pulse Rate 101 H 110 H Respiratory Rate 18 18 Blood Pressure 139/79 142/81 H Pulse Oximetry 96 97 Oxygen Delivery Room Air Intake/Output Intake/Output: Intake & Output 08/21/25 08/22/25 08/23/25 08/24/25 23:59 23:59 23:59 23:59 Intake Total 1040 1320 3370 1940 Balance 1040 1320 3370 1940 Meds/Results Medications: Active Medications Generic Name Dose Route Start Last Admin Trade Name Freq PRN Reason Stop Dose Admin Acetaminophen 650 mg 08/21/25 12:00 08/24/25 05:49 Acetaminophen 325 Mg Tablet PO 650 mg Q6HR BARNEY Administration Amlodipine Besylate 5 mg 08/21/25 21:00 08/23/25 20:31 Amlodipine Besylate 5 Mg Tablet PO 5 mg HS BARNEY Administration Aspirin 81 mg 08/21/25 21:00 08/24/25 09:04 Aspirin 81 Mg Enteric Tablet PO 81 mg Q12HR BARNEY Administration Celecoxib 100 mg 08/21/25 14:00 08/24/25 09:05 Celecoxib 100 Mg Capsule PO 100 mg DAILY BARNEY Administration Cyclobenzaprine HCl 5 mg 08/21/25 11:54 08/23/25 20:31 Cyclobenzaprine Hcl 5 Mg Tablet PO 5 mg Q8H PRN Administration Spasms Cyclosporine 1 drop 08/21/25 21:00 08/24/25 09:03 Cyclosporine 0.4 Ml Ophth Solution EACH EYE 1 drop Q12H BARNEY Administration Diphenhydramine HCl 25 mg 08/21/25 11:54 Diphenhydramine Hcl Inj 50 Mg/Ml Vial IV PUSH Q6H PRN Itching Ezetimibe 10 mg 08/21/25 14:00 08/24/25 09:03 Ezetimibe 10 Mg Tablet PO 10 mg DAILY BARNEY Administration Famotidine 20 mg 08/21/25 14:00 08/24/25 09:04 Famotidine 20 Mg Tablet PO 20 mg Q12HR BARNEY Administration Hydromorphone HCl 1 mg 08/21/25 11:54 Hydromorphone Hcl Inj (*Crx) 1 Mg/Ml Syr IV PUSH Q2H PRN Breakthrough Pain Rated 7-10 or NPO Hydromorphone HCl 0.5 mg 08/21/25 11:54 Hydromorphone Hcl Inj (*Crx) 1 Mg/Ml Syr IV PUSH Q2H PRN Breakthrough Pain Rated 4-6 or NPO Lisinopril 20 mg 08/21/25 17:00 08/24/25 09:03 Lisinopril 20 Mg Tablet PO 20 mg BID BARNEY Administration Loratadine 10 mg 08/21/25 14:00 08/24/25 09:03 Loratadine 10 Mg Tablet PO 10 mg QAM BARNEY Administration Naloxone HCl 0.1 mg 08/21/25 11:54 Naloxone Hcl 0.4 Mg/Ml Vial IV PUSH Q2M PRN Opiate Reversal Ondansetron HCl 4 mg 08/21/25 11:54 Ondansetron Inj 4 Mg/2 Ml Vial IV PUSH Q4H PRN Nausea And Vomiting Oxycodone/Acetaminophen 1 tablet 08/21/25 11:54 Oxycodone/Acetaminophen (*Crx) 5-325 Mg Tablet PO Q4H PRN Pain Rated 4-6 Oxycodone/Acetaminophen 1 tab 08/21/25 11:54 08/23/25 03:06 Oxycodone/Acetaminophen (*Crx) 10-325 Mg Tablet PO 1 tab Q6H PRN Administration Pain Rated 7-10 Phenol 1 spray 08/23/25 12:00 08/23/25 12:25 Phenol/Sod Pheno [place] Mercedes (*Bkc) MUCOUS MEM 1 spray PRN PRN Administration Sore Throat Polyethylene Glycol 17 gm 08/21/25 14:00 08/24/25 09:16 Polyethylene Glycol 3350 17 Gm Powd.Pack PO Not Given QAM BARNEY Pregabalin 75 mg 08/21/25 17:00 08/24/25 09:04 Pregabalin (*Crx) 75 Mg Capsule PO 75 mg BID BARNEY Administration Senna/Docusate Sodium 2 tab 08/21/25 21:00 08/24/25 09:15 Senna/Docusate Sodium Tablet PO Not Given Q12HR BARNEY Simethicone 125 mg 08/21/25 12:50 Simethicone 125 Mg Chew Tab PO QID PRN abdominal distention/gas Tramadol HCl 50 mg 08/21/25 11:54 Tramadol Hcl (*Crx) 50 Mg Tablet PO Q4H PRN Pain Rated 1-3 Radiology Results: ITS Impressions Shoulder X-Ray 08/21/25 10:51 Impression: No acute fracture or malalignment. Labs Labs: Laboratory Results - last 24 hr 08/23/25 08/24/25 16:57 06:07 WBC 4.5 RBC 3.99 L Hgb 11.8 L Hct 36.7 L MCV 92.0 MCH 29.6 MCHC 32.2 RDW 13.2 Plt Count 190 MPV 9.6 Sodium 130 L 131 L Potassium 4.3 Chloride 101 Carbon Dioxide 24 Anion Gap 6 BUN 9 Creatinine 0.58 L Estim Creat Clear Calc 72 Estimated GFR > 60 Glucose 86 Calcium 8.4 TSH (Reflex) 0.846
--- NOTE | 2025-08-24 10:39 | P.DS_ITS ---
DS: Admitting Diagnosis Discharge Date 08/24/25 Admitting Diagnosis Shoulder arthritis. DS: Discharge Diagnosis Discharge Diagnosis (1) Status post reverse total arthroplasty of right shoulder: Onset Date: 08/22/25 Code(s): Z96.611 - Presence of right artificial shoulder joint Status: Acute Assessment and Plan: Postop day 3: Reverse total shoulder arthroplasty. Patient tolerated procedure well. No complications. Patient did have a low s odium post op that decreased to 124 at the second check. Back up to 131 today. Hospitalist and Nephrology consulted. Appreciate consultations. Patient continues to be Asymptomatic. She states she feels good today. Okay to discharge from orthopedic standpoint once she is medically stable. We had a lengthy discussion regarding postoperative wound care, limitations, expectations, and exercises. Patient shows good understanding. She has had initial physical therapy and is tolerating it well. Patient has followup appointment with Dr. Mandel in 3 weeks. DS: Summary Hospital Course Hospital Course: Patient presented for reverse total shoulder. Patient did have a low sodium post op that decreased to 124 at the second check. Back up to 131 today. Hospitalist and Nephrology consulted. Time Spent with Patient Time attestation: Total time spent providing and/or coordinating discharge services: Exam Narrative: Normal weight Female. Walking the halls with therapy at the time of my visit. Wearing sling. Dressing dry and intact with no drainage. Mild swelling. Mild ecchymosis. No erythema. No hematoma. Range of motion limited due to pain. Calf nontender. Neurologic status intact. No varicosities. Distal pulses palpable. Axillary nerve fires. DS: Data Data Completed and Pending Labs on day of discharge: Labs from last 24 hours 08/24/25 08/23/25 06:07 16:57 WBC 4.5 RBC 3.99 L Hgb 11.8 L Hct 36.7 L MCV 92.0 MCH 29.6 MCHC 32.2 RDW 13.2 Plt Count 190 MPV 9.6 Sodium 131 L 130 L Potassium 4.3 Chloride 101 Carbon Dioxide 24 Anion Gap 6 BUN 9 Creatinine 0.58 L Estim Creat Clear Calc 72 Estimated GFR > 60 Glucose 86 Calcium 8.4 TSH (Reflex) 0.846 Discharge Plan Discharge Attending physician on discharge: Mitch Mandel Consulting providers: Melanie Rosas; Judson Aquino Discharging Clinician: Elma Barba Patient Disposition: Home Activity: may shower and other - see discharge instructions Diet: as tolerated Wound Care Instructions: follow printed instructions Discharge Instructions: See green instruction sheets Patient Language: Indonesian Stand Alone Forms: General Discharge Instructions Follow-up/Referrals: Elma Barba PA [Physician [employer]ism [employer] Presenter, Orthopedics] Discharge Medications: New aspirin 81 mg tablet,delayed release (DR/EC) 81 mg PO BID 14 Days Qty: 28 0RF oxycodone-acetaminophen 5-325 mg tablet 1 - 2 tablet PO Q4-6H PRN (Reason: pain) 7 Days Qty: 30 0RF Rx Instructions: Surgery: Use for post op severe breakthrough pain. Continued cetirizine [Zyrtec] 10 mg tablet 10 mg PO DAILY Qty: 30 0RF calcium carbonate-vitamin D3 [Calcium 600 with Vitamin D3] 600 mg-12.5 mcg (500 unit) capsule 1 cap PO DAILY vit A-vit C-vit P-mzpk-oqxgnf 7,160-113-100 pnax-dt-groj tablet See Rx Instructions .ROUTE .COMPLEX Rx Instructions: . naproxen [EC-Naproxen] 375 mg tablet,delayed release (DR/EC) 375 mg PO PRN PRN (Reason: pain) montelukast 10 mg tablet 10 mg PO QHS pregabalin 75 mg capsule 75 mg PO BID Qty: 180 1RF Patient Comments: TAKES FOR LT ARM PAIN R/T SHINGLES ezetimibe [Zetia] 10 mg tablet 10 mg PO DAILY Qty: 90 3RF cyclosporine 0.05 % dropperette 1 drp EACH EYE Q12H amlodipine 5 mg tablet 5 mg PO HS diphenhydramine-acetaminophen [Night Time Pain Medicine] 25-500 mg tablet 1 tablet PO HS PRN (Reason: sleep) acetaminophen [8 Hour Pain Reliever] 650 mg tablet extended release 650 mg PO PRN PRN (Reason: pain) vit A-vit C-vit E-lhgf-lxdybd 7,160-113-100 mzjm-qb-iwlb tablet PO DAILY calcium polycarbophil [FiberCon] 625 mg tablet 625 mg PO DAILY simethicone [Gas Relief (simethicone)] 180 mg capsule 180 mg PO DAILY PRN (Reason: abdominal distention) Mucinex DM 30-600 mg tablet extended release 12 hr 1 tablet PO Q12H celecoxib 100 mg capsule 100 mg PO DAILY lisinopril 20 mg tablet 20 mg PO BID Qty: 180 1RF buspirone 10 mg tablet See Rx Instructions .ROUTE .COMPLEX Qty: 270 1RF Dose Instruction: TAKE 1 TABLET ORALLY THREE TIMES A DAY NEEDED FOR ANXIETY Rx Instructions: TAKE 1 TABLET ORALLY THREE TIMES A DAY NEEDED FOR ANXIETY Date of admission: 08/22/25 15:57 Primary Care Provider: KunalSita Admitting Provider: Mitch Mandel Attending physician on admission: Mitch Mandel Condition: Stable
[2025-08-24] MEDS: oxyCODONE/ACETAMINOPHEN (*CRX) 10-325 MG TABLET 1 TAB PO (12:11)
--- NOTE | 2025-08-24 13:32 | PC.NURSE ---
I, Karyn De La Torre RN, have reviewed documentation by Terri REYNOSO and agree with the findings.
[2025-08-27 12:08] LABS: Albumin 2.9 g/dL (2.9-4.4); Alpha-1-Globulin 0.2 g/dL (0.0-0.4); Alpha-2-Globulin 0.7 g/dL (0.4-1.0); Gamma Globulin 1.0 g/dL (0.4-1.8)
[2025-08-27 14:08] LABS: Albumin, U 48.6 % (.); Alpha-1-Globulin, U 5.1 % (.); Alpha-2-Globulin, U 15.7 % (.); Beta Globulin, U 21.1 % (.); Gamma Globulin, U 9.5 % (.)
[2025-08-28 11:09] LABS: Osmolality, Serum 259 mOsmol/kg (280-301)
[2025-08-28 20:07] LABS: Osmolality, Urine 138 mOsmol/kg (.)
== END 2025-08-24 13:13 | disposition home or self-care (01) | DRG 483 ==
LOC: ANHSURGERY 16:25 → ANH3MEDSUR 08-24 10:36
PROVIDERS: Internal Medicine Nephrology; Nurse Practitioner Gerontology; Student in an Organized Health Care Education/Training Program; Admitting Provider Orthopaedic Surgery; PCP Family Medicine; Visit Provider Physician Assistant Surgical
PROC: 0RRJ00Z Replacement of Right Shoulder Joint with Reverse Ball and Socket Synthetic Substitute, Open Approach (ICD-10-PCS; CPT 23472; principal; 2025-08-21 07:30)
DX: S46.011A Strain of muscle(s) and tendon(s) of the rotator cuff of right shoulder, initial encounter (principal); E87.1 Hypo-osmolality and hyponatremia; I10 Essential (primary) hypertension; F41.9 Anxiety disorder, unspecified; E78.5 Hyperlipidemia, unspecified; K21.9 Gastro-esophageal reflux disease without esophagitis; M41.9 Scoliosis, unspecified; H35.30 Unspecified macular degeneration; Z87.891 Personal history of nicotine dependence
CPT/HCPCS: 36415; 73030; 80048; 80053; 80069; 82533; 82570; 83930; 83935; 84155; 84156; 84165; 84166; 84295; 84300; 84443; 85025; 85027; 86850; 86900; 86901; 97110; 97161; 97166; 97530; 97535; J0690; A4565; A9270; C1776; J0166; J1100; J1171; J1885; J2003; J2250; J2270; J2405; J2704; J2795; J3010; J3290; J3373; J7030; J7120

== ENCOUNTER 2025-08-29 08:30 | Outpatient (CLI) | payer MEDICARE, SELFPAY ==
[2025-08-29 09:33] LABS: Alanine Aminotransferase 25 U/L (6-35); Albumin Level 4.0 g/dL (3.5-5.1); Alkaline Phosphatase 95 U/L (38-126); Anion Gap 3 mmol/L (4-12); Aspartate Amino Transferase 33 U/L (14-36); Bilirubin,Total 0.4 mg/dL (0.2-1.3); Blood Urea Nitrogen 15 mg/dL (7-17); Calcium 9.2 mg/dL (8.4-10.2); Carbon Dioxide 29 mmol/L (22-30); Chloride 102 mmol/L (98-107); Estimated Glomerular Filt Rate > 60; Glucose 85 mg/dL (65-110); Potassium 4.3 mmol/L (3.4-5.0); Sodium 134 mmol/L (137-145); Total Protein 7.5 g/dL (6.3-8.2)
== END 2025-08-29 08:31 | disposition home or self-care (01) ==
PROVIDERS: PCP Family Medicine
DX: E78.2 Mixed hyperlipidemia (principal)
CPT/HCPCS: 36415; 80053